=== PATIENT | female | born 1975 | race Caucasian/White ===

== ENCOUNTER 2020-04-08 16:02 | Outpatient (REF) | payer OTHER, SELFPAY ==
[2020-04-09 08:23] LABS: COVID-19 Test Negative (Negative)
== END 2020-04-08 16:03 | disposition home or self-care (01) ==
LOC: HO.LAB 16:02
PROVIDERS: PCP Internal Medicine; Visit Provider Internal Medicine
DX: Z20.828 Contact with and (suspected) exposure to other viral communicable diseases (principal)
CPT/HCPCS: 87635

== ENCOUNTER 2020-05-09 08:45 | Outpatient (REF) | payer OTHER, SELFPAY ==
[2020-05-09 09:04] LABS: COVID-19 Test Negative (Negative)
== END 2020-05-09 08:46 | disposition home or self-care (01) ==
LOC: HO.LAB 08:45
PROVIDERS: Visit Provider Internal Medicine
DX: Z20.828 Contact with and (suspected) exposure to other viral communicable diseases (principal)
CPT/HCPCS: 87635; C9803

== ENCOUNTER → 2020-05-23 10:28 | Outpatient (BNVA) | payer OTHER, SELFPAY | PROVIDERS: PCP Internal Medicine; Referring Provider Internal Medicine; Visit Provider Surgery | DX: Z76.89 Persons encountering health services in other specified circumstances (principal) ==

== ENCOUNTER → 2020-05-26 12:44 | Outpatient (BNVA) | payer OTHER, SELFPAY | PROVIDERS: PCP Internal Medicine; Referring Provider Internal Medicine; Visit Provider Internal Medicine Gastroenterology | DX: Z76.89 Persons encountering health services in other specified circumstances (principal) ==

== ENCOUNTER 2020-06-02 08:39 | Outpatient (REF) | payer OTHER, SELFPAY ==
[2020-06-02 09:37] LABS: COVID-19 Test Negative (Negative)
== END 2020-06-02 08:40 | disposition home or self-care (01) ==
LOC: HO.EMPCOV 08:39
PROVIDERS: PCP Internal Medicine; Visit Provider Internal Medicine
DX: Z20.828 Contact with and (suspected) exposure to other viral communicable diseases (principal)
CPT/HCPCS: 87635; C9803

== ENCOUNTER 2020-06-26 10:59 | Outpatient (REF) | payer OTHER, SELFPAY ==
[2020-06-26 11:27] LABS: COVID-19 Test Negative (Negative); IDNOW Serial# 55D5AD1C
== END 2020-06-26 11:00 | disposition home or self-care (01) ==
LOC: HO.LAB 10:59
PROVIDERS: Visit Provider Internal Medicine
DX: Z20.828 Contact with and (suspected) exposure to other viral communicable diseases (principal)
CPT/HCPCS: 87635; C9803

== ENCOUNTER → 2020-07-08 15:13 | Outpatient (BNVA) | payer OTHER, SELFPAY | PROVIDERS: PCP Internal Medicine; Visit Provider Surgery | DX: Z76.89 Persons encountering health services in other specified circumstances (principal) ==

== ENCOUNTER 2020-10-01 12:44 | Outpatient (REF) | payer OTHER, SELFPAY ==
[2020-10-01 13:05] LABS: COVID-19 Test Negative (Negative); IDNOW Serial# 55D5AD1C
== END 2020-10-01 12:45 | disposition home or self-care (01) ==
LOC: HO.EMPCOV 12:44
PROVIDERS: Visit Provider Internal Medicine
DX: Z20.822 Contact with and (suspected) exposure to COVID-19 (principal)
CPT/HCPCS: 36415; 87635; C9803

== ENCOUNTER 2020-10-16 07:47 | Outpatient (REF) | payer OTHER, SELFPAY ==
[2020-10-16 08:24] LABS: COVID-19 Test Negative (Negative)
== END 2020-10-16 07:48 | disposition home or self-care (01) ==
LOC: HO.EMPCOV 07:47
PROVIDERS: Visit Provider Internal Medicine
DX: Z20.822 Contact with and (suspected) exposure to COVID-19 (principal)
CPT/HCPCS: 36415; 87635; C9803

== ENCOUNTER 2020-10-21 14:35 | Outpatient (REF) | payer OTHER, SELFPAY ==
[2020-10-21 14:55] LABS: COVID-19 Test Negative (Negative)
== END 2020-10-21 14:36 | disposition home or self-care (01) ==
LOC: HO.LAB 14:35
PROVIDERS: Visit Provider Internal Medicine
DX: Z20.822 Contact with and (suspected) exposure to COVID-19 (principal)
CPT/HCPCS: 36415; 87635; C9803

== ENCOUNTER 2020-11-13 08:25 | Outpatient (REF) | payer OTHER, SELFPAY ==
[2020-11-13 08:43] LABS: COVID-19 Test Negative (Negative)
== END 2020-11-13 08:26 | disposition home or self-care (01) ==
LOC: HO.EMPCOV 08:25
PROVIDERS: Visit Provider Internal Medicine
DX: Z20.822 Contact with and (suspected) exposure to COVID-19 (principal)
CPT/HCPCS: 36415; 87635; C9803

== ENCOUNTER 2021-02-10 09:00 | Outpatient (REF) | payer OTHER, SELFPAY ==
--- NOTE | ~2021-02-10 | MM_ITS ---
EXAMINATION: MM SCREENING DIGITAL BREAST TOMOSYNTHESIS, BILATERAL CLINICAL INFORMATION: Screening. Asymptomatic. The lifetime risk of breast cancer based on the Tyrer-Cuzick Model is 7%. COMPARISON: Mammography: 02/01/2020, 01/26/2019, 11/09/2017; targeted left breast ultrasound 02/01/2020 and 07/14/2015. TECHNIQUE: Digital breast tomosynthesis is performed in both the craniocaudal and mediolateral oblique views along with computer-aided detection (CAD). Synthesized 2D images are generated from the tomosynthesis. FINDINGS: The breasts are heterogeneously dense, which may obscure small masses (ACR BI-RADS breast composition Category c). Parenchymal pattern is similar to prior studies. There is no developing density or interval mass or architectural abnormality. There is a stable smooth mass mid left 3:00 position previously confirmed as cyst. No abnormal calcifications. The axilla and skin contours are unremarkable. MM/MM tomosynthesis screening BI IMPRESSION: No mammographic evidence of malignancy. ASSESSMENT: BI-RADS 2: Benign RECOMMENDATION: Routine annual mammography screening. This patient's information was entered into a reminder system with a target due date for their next mammogram.
== END 2021-02-10 09:01 | disposition home or self-care (01) ==
LOC: HO.MAMMO 09:00
PROVIDERS: PCP Internal Medicine; Visit Provider Internal Medicine
DX: Z12.31 Encounter for screening mammogram for malignant neoplasm of breast (principal)
CPT/HCPCS: 77063; 77067

== ENCOUNTER 2021-04-07 10:53 | Outpatient (REF) | payer OTHER, SELFPAY ==
--- NOTE | ~2021-04-07 | XR_ITS ---
EXAMINATION: XR CHEST CLINICAL INFORMATION: Chest pain. COMPARISON: Chest 05/21/2016 TECHNIQUE: 2 views of the chest were obtained. FINDINGS: No significant abnormality is noted involving the heart, lungs, mediastinum, bony thorax or soft tissues. XR/XR chest 2V IMPRESSION: Unremarkable chest examination.
[2021-04-07 11:12] LABS: MANUAL DIFF FLAG NO
[2021-04-07 11:24] LABS: Basophils Percent Auto 0.8 % (0-2); Eosinophils Absolute Auto 0.5 X10*3/uL (0.0-0.4); Hematocrit 44.3 % (37-47); Hemoglobin 14.9 g/dl (12.0-16.0); Imm Gran Abs Auto 0.01 X10*3/uL (0.00-0.03); Imm Gran Pct Auto 0.2 % (0.0-0.4); Lymphocytes Absolute Auto 1.8 X10*3/uL (1.2-4.9); Lymphocytes Percent Auto 35.4 % (20-40); Mean Corpuscular HGB Conc 33.6 g/dl (31.0-35.0); Mean Corpuscular Hemoglobin 26.3 pg (27.0-33.0); Mean Corpuscular Volume 78.3 fL (80-98); Mean Platelet Volume 9.6 fL (9.4-12.3); Monocytes Absolute Auto 0.5 X10*3/uL (0.1-1.2); Monocytes Percent Auto 9.6 % (2-11); Neutrophils Absolute Auto 2.3 X10*3/uL (2.0-8.3); Platelet Count 376 X10*3/uL (160-400); Red Blood Count 5.66 X10*6/uL (4.20-5.50); Red Cell Distribution Width 13.5 % (11.0-16.0)
[2021-04-07 11:54] LABS: Cholesterol 169 mg/dL; HDL Cholesterol 27 mg/dL; LDL Cholesterol Calculated 118 mg/dl; Triglycerides 124 mg/dL
[2021-04-07 12:51] LABS: Folate 7.5 ng/mL (> or = 4.0); Vitamin B12 776 pg/mL (200-900)
[2021-04-17 14:07] LABS: Vitamin D 25-OH, D2 <4 ng/mL; Vitamin D 25-OH, D3 51 ng/mL; Vitamin D 25-OH, Total 51 ng/mL (30-100)
== END 2021-04-07 10:54 | disposition home or self-care (01) ==
LOC: HO.XRAY 10:53
PROVIDERS: PCP Internal Medicine; Visit Provider Internal Medicine
DX: R09.89 Other specified symptoms and signs involving the circulatory and respiratory systems (principal); E55.9 Vitamin D deficiency, unspecified; D64.9 Anemia, unspecified; E53.8 Deficiency of other specified B group vitamins; E78.5 Hyperlipidemia, unspecified
CPT/HCPCS: 36415; 71046; 80061; 82306; 82607; 82746; 85025

== ENCOUNTER → 2021-06-10 08:07 | Outpatient (BNVA) | payer OTHER, SELFPAY | PROVIDERS: PCP Internal Medicine; Visit Provider Advanced Practice Midwife ==

== ENCOUNTER 2021-10-05 14:16 | Outpatient (REF) | payer OTHER, SELFPAY ==
[2021-10-06 04:00] LABS: CT PCR NOT DETECTED (Not Detect.); NG PCR NOT DETECTED (Not Detect.)
== END 2021-10-05 14:17 | disposition home or self-care (01) ==
LOC: HO.LAB 14:16
PROVIDERS: PCP Internal Medicine; Visit Provider Advanced Practice Midwife
DX: Z30.430 Encounter for insertion of intrauterine contraceptive device (principal); Z20.2 Contact with and (suspected) exposure to infections with a predominantly sexual mode of transmission
CPT/HCPCS: 58300; 81025; 87491; 87591; J7298

== ENCOUNTER 2022-01-13 17:55 | Outpatient (REF) | payer OTHER, SELFPAY | END 2022-01-13 17:56 | disposition home or self-care (01) | LOC: HO.LNP 17:55 | PROVIDERS: Visit Provider Internal Medicine | DX: R30.0 Dysuria (principal) | CPT/HCPCS: 87086 ==

== ENCOUNTER 2022-03-12 11:14 | Outpatient (REF) | payer OTHER, SELFPAY ==
--- NOTE | ~2022-03-12 | MM_ITS ---
EXAMINATION: MM SCREENING DIGITAL BREAST TOMOSYNTHESIS, BILATERAL CLINICAL INFORMATION: Screening. Asymptomatic. The lifetime risk of breast cancer based on the Tyrer-Cuzick Model is 19.7%. COMPARISON: Mammography: 02/10/2021, 01/14/2020, 01/26/2019, 11/09/2017; targeted left breast ultrasound 02/01/2020, 07/14/2015 TECHNIQUE: Digital breast tomosynthesis is performed in both the craniocaudal and mediolateral oblique views along with computer-aided detection (CAD). Synthesized 2D images are generated from the tomosynthesis. FINDINGS: The breasts are heterogeneously dense, which may obscure small masses (ACR BI-RADS breast composition Category c). There is fibronodular parenchymal pattern similar to prior studies. Chronic circumscribed cyst again noted posterior 3:00 left breast. There is no interval mass or architectural abnormality or developing density. No abnormal calcifications. The axilla and skin contours are unremarkable. MM/MM tomosynthesis screening BI IMPRESSION: No mammographic evidence of malignancy. ASSESSMENT: BI-RADS 2: Benign RECOMMENDATION: Routine annual mammography screening. This patient's information was entered into a reminder system with a target due date for their next mammogram.
== END 2022-03-12 11:15 | disposition home or self-care (01) ==
LOC: HO.MAMMO 11:14
PROVIDERS: PCP Internal Medicine; Visit Provider Advanced Practice Midwife
DX: Z12.31 Encounter for screening mammogram for malignant neoplasm of breast (principal)
CPT/HCPCS: 77063; 77067

== ENCOUNTER → 2022-04-07 09:40 | Outpatient (REF) | payer OTHER, SELFPAY ==
--- NOTE | 2022-04-07 09:50 | ECG_ITS ---
Test Reason : PRE OP Blood Pressure : / mmHG Vent. Rate : 090 BPM Atrial Rate : 090 BPM P-R Int : 150 ms QRS Dur : 098 ms QT Int : 402 ms P-R-T Axes : 060 079 -11 degrees QTc Int : 491 ms Normal sinus rhythm T wave abnormality, consider inferolateral ischemia Abnormal ECG When compared with ECG of 21-MAY-2016 16:44, No significant change was found Referred By: Griffin Sawant Electronically Signed By:LIZA JOHNSON
[2022-04-07 10:32] LABS: Hematocrit 46.6 % (37.0-47.0); Hemoglobin 15.7 g/dl (12.0-16.0); Mean Corpuscular HGB Conc 33.7 g/dl (31.0-35.0); Mean Corpuscular Hemoglobin 26.7 pg (27.0-33.0); Mean Corpuscular Volume 79.4 fL (80.0-98.0); Mean Platelet Volume 10.3 fL (9.4-12.3); Platelet Count 486 X10*3/uL (160-400); Red Blood Count 5.87 X10*6/uL (4.20-5.50); Red Cell Distribution Width 13.4 % (11.0-16.0); White Blood Count 8.1 X10*3/uL (4.8-10.8)
[2022-04-07 11:14] LABS: Alanine Aminotransferase 50 U/L (0-31); Albumin Level 4.8 g/dL (3.5-5.0); Alkaline Phosphatase 91 U/L (39-117); Anion Gap 20 (12-20); Aspartate Amino Transferase 33 U/L (5-31); Bilirubin Direct 0.3 mg/dL (0.0-0.5); Blood Urea Nitrogen 17 mg/dL (9-16); Carbon Dioxide 26 mmol/L (22-29); Chloride 97 mmol/L (96-108); Estimated Glomerular Filt Rate > 60; Glucose Random 109 mg/dL (60-115); Potassium 3.9 mmol/L (3.3-5.1); Sodium 139 mmol/L (135-145); Total Protein 8.5 g/dL (6.5-8.0)
[2022-04-07 11:28] LABS: Thyroid Stimulating Hormone 1.93 uIU/mL (0.32-4.0)
[2022-04-07 11:31] LABS: Vitamin D 25-OH Total 41.9 ng/mL (>30)
[2022-04-07 11:44] LABS: Folate 15.3 ng/mL (> or = 4.0); Vitamin B12 1304 pg/mL (200-900)
[2022-04-11 16:26] LABS: Vitamin D 25-OH, D2 <4 ng/mL; Vitamin D 25-OH, D3 39 ng/mL; Vitamin D 25-OH, Total 39 ng/mL (30-100)
== END ==
LOC: HO.CARD 09:40
PROVIDERS: Absent Provider Internal Medicine; PCP Internal Medicine; Visit Provider Internal Medicine
DX: Z01.818 Encounter for other preprocedural examination (principal); I10 Essential (primary) hypertension; D51.0 Vitamin B12 deficiency anemia due to intrinsic factor deficiency; E55.9 Vitamin D deficiency, unspecified
CPT/HCPCS: 36415; 80048; 80076; 82306; 82607; 82746; 84443; 85027; 93005

== ENCOUNTER → 2022-04-20 07:25 | Outpatient (REF) | payer OTHER, SELFPAY ==
--- NOTE | 2022-04-20 07:28 | CA_ITS ---
Transthoracic Echocardiogram Patient (Last, First, Middle): Dalila Patel, Gender: Female Date of : 1975 Age: 47 Procedure Date: 04/20/2022 Procedure Type: Transthoracic Echocardiogram Location: OP Height: 154.94 cm Weight: 86.18 kg BSA: 1.85 m2 Heart Rate: bpm BP: 120 / 80 mmHg Heel Attacher: TO Referring MD: Cassius Holt MD First Crusher: Cassius Holt MD Symptoms: Z01.810 - Encounter for preprocedural cardiovascular examination Study Quality: Technically Difficult/Contrast ECG Rhythm: Sinus Conclusions: - Normal left ventricular size, thickness, systolic function, and wall motion. The visually estimated ejection fraction is between 60-65%. Diastolic function is normal for age. - Normal right ventricular cavity size and systolic function. - There is mild mitral annular calcification. Findings Procedure Information Contrast agent, definity, is being given per protocol without apparent complications. Left Ventricle Normal left ventricular size, thickness, systolic function, and wall motion. The visually estimated ejection fraction is between 60-65%. Diastolic function is normal for age. Right Ventricle Normal right ventricular cavity size and systolic function. Atria Both atria are normal in size. Aortic Valve Normal aortic valve structure and function. There is no aortic valve stenosis. There is no aortic valve regurgitation. Mitral Valve The mitral valve appears normal. There is mild mitral annular calcification. There is no mitral valve regurgitation. There is no mitral valve stenosis. Pulmonic Valve The pulmonic valve is likely normal. Tricuspid Valve Normal tricuspid valve structure and function. There is no tricuspid valve regurgitation. Normal right atrial pressure. There is no evidence of pulmonary hypertension. Great Vessels All visible segments of the aorta are normal in size. The visualized portions of the pulmonary artery and branches are normal. Venous The inferior vena cava is normal in size and collapses greater than 50% with inspiration. Pericardium/Pleural There is no evidence of pericardial effusion. Prior Study Comparison No prior study available for comparison. Measurements 2D Linear Measurements IVSd: 0.91 0.6-0.9/0.6-1.0 cm LVIDd: 4.36 3.9-5.3/4.2-5.9 cm LVIDd Index: 2.36 2.4-3.2/2.2-3.1 cm/m2 LVIDs: 2.39 2.0-3.6 cm LVPWd: 0.85 0.7-1.1 cm LA Diam: 2.80 2.7-3.8/3.0-4.0 cm LAIDs Index: 1.51 1.5-2.3 cm/m2 LV Mass: 152.54 67-162/88-224 g LV Mass Index: 82.46 43-95/49-115 g/m2 LVOT Diam: 2.00 3.0+(-)1.3 cm 2D Systolic Function EF 4C: 61.50 >55% EF 2C: 66.10 >55% EF BiP: 64.30 >55% Mitral Valve MV Pk E: 0.76 MV PK A: 0.60 MV Decel Time: 213.00 E/A: 1.30 E'Lateral: 7.83 E'Medial: 7.94 E/E' Med: 9.50 E/E' Lat: 9.70 PHT: 62.00 MVA PHT: 3.55 Decel [place]: 3.56 Aortic Valve AoV Pk Milo: 1.12 AoV Mn Milo: 0.79 AoV VTI: 0.22 AoV Pk Grad: 5.00 Aov Mn Grad: 3.00 ELAN Cont.VTI: 1.91 LVOT LVOT Pk Milo: 0.71 LVOT Mn Milo: 0.44 LVOT VTI: 0.13 LVOT Pk Grad: 2.00 LVOT Mn Grad: 1.00 LVOT Diam: 2.00 LVOT Area: 3.14 Diastolic Function MV Pk E: 0.76 MV Pk A: 0.60 E/A: 1.30 E'Medial: 7.94 E/E' Med: 9.50 E' Laterial: 7.83 E/E' Lat: 9.70 Right Ventricle TAPSE (mm): 19.10 TVS' Milo: 10.70 Tricuspid Valve TR Pk Milo: 1.38 TR Pk Grad: 8.00 RA Press: 3.00 RVSP: 11.00 Great Vessels Aorta Sinus of Valsalva: 3.03 2.0-3.5 cm Ao Asc: 2.90 2.1-3.4 cm Updated in Other Vendor System with Status of Final Cassius Holt MD electronically signed on 04/21/2022 12:25:32 PM with status of Final
== END ==
LOC: HO.CARD 07:25
PROVIDERS: PCP Internal Medicine; Visit Provider Internal Medicine Cardiovascular Disease
DX: Z01.810 Encounter for preprocedural cardiovascular examination (principal)
CPT/HCPCS: 93306; Q9957

== ENCOUNTER 2022-04-28 16:04 | Outpatient (REF) | payer OTHER, SELFPAY ==
[2022-04-28 18:07] LABS: HCG Quantitative < 2 mIU/mL
[2022-04-28 18:37] LABS: Folate 17.5 ng/mL (> or = 4.0); Vitamin B12 1034 pg/mL (200-900)
== END 2022-04-28 16:05 | disposition home or self-care (01) ==
LOC: HO.LAB 16:04
PROVIDERS: PCP Internal Medicine; Visit Provider Internal Medicine
DX: Z01.810 Encounter for preprocedural cardiovascular examination (principal); D51.0 Vitamin B12 deficiency anemia due to intrinsic factor deficiency
CPT/HCPCS: 36415; 82607; 82746; 84702; 85730

== ENCOUNTER 2022-04-30 09:44 | Outpatient (REF) | payer OTHER, SELFPAY ==
[2022-04-30 11:08] LABS: INTERNATIONAL NORM RATIO 1.1 (0.9-1.1); Prothrombin Time 12.4 SEC (10.0-13.1)
== END 2022-04-30 09:45 | disposition home or self-care (01) ==
LOC: HO.LAB 09:44
PROVIDERS: PCP Internal Medicine; Visit Provider Internal Medicine
DX: Z01.810 Encounter for preprocedural cardiovascular examination (principal)
CPT/HCPCS: 36415; 85610

== ENCOUNTER 2022-07-30 11:07 | Outpatient (REF) | payer OTHER, SELFPAY ==
--- NOTE | ~2022-07-30 | XR_ITS ---
EXAMINATION: XR ABDOMEN KUB CLINICAL INDICATION: Abdominal pain. COMPARISON: CT abdomen and pelvis dated 1124). TECHNIQUE: AP view of the abdomen. FINDINGS: The bowel gas pattern is normal, with no evidence of ileus or obstruction. No unusual soft tissue calcifications are noted. An intrauterine device and tubal ligation clips are seen. The bones are unremarkable. XR/XR KUB IMPRESSION: Unremarkable examination.
== END 2022-07-30 11:08 | disposition home or self-care (01) ==
LOC: HO.XRAY 11:07
PROVIDERS: PCP Internal Medicine; Visit Provider Nurse Practitioner Family
DX: R10.9 Unspecified abdominal pain (principal)
CPT/HCPCS: 74018

== ENCOUNTER 2022-08-02 15:36 | Outpatient (REF) | payer OTHER, SELFPAY | END 2022-08-02 15:37 | disposition home or self-care (01) | LOC: HO.LAB 15:36 | PROVIDERS: PCP Internal Medicine; Visit Provider Advanced Practice Midwife | DX: R39.15 Urgency of urination (principal); R30.0 Dysuria | CPT/HCPCS: 81003; 87086 ==

== ENCOUNTER 2022-08-20 07:59 | Outpatient (REF) | payer OTHER, SELFPAY ==
--- NOTE | ~2022-08-20 | US_ITS ---
EXAMINATION: US RETROPERITONEAL LIMITED (RENAL ONLY) CLINICAL INFORMATION: Unspecified abdominal pain. COMPARISON: X-ray abdomen KUB 07/30/2022. TECHNIQUE: Real-time imaging of the kidneys. FINDINGS: RIGHT KIDNEY: 12.0 x 5.0 x 5.3 cm (SAG x AP x TRV). The kidney is normal in size, contour, and echogenicity. Renal cortical thickness is normal. No renal mass or hydronephrosis. At the interpolar aspect, a 5 mm nonobstructing calculus is seen, with twinkle artifact. LEFT KIDNEY: 11.0 x 5.3 x 4.9 cm (SAG x AP x TRV). The kidney is normal in size, contour, and echogenicity. Renal cortical thickness is normal. No calculi or focal parenchymal lesions. No hydronephrosis. US/US renal BI IMPRESSION: A 5 mm nonobstructing right renal calculus is seen. No left renal calculus is seen. No hydronephrosis is noted bilaterally.
== END 2022-08-20 08:00 | disposition home or self-care (01) ==
LOC: HO.US 07:59
PROVIDERS: PCP Internal Medicine; Visit Provider Nurse Practitioner Family
DX: R10.9 Unspecified abdominal pain (principal)
CPT/HCPCS: 76775

== ENCOUNTER 2022-09-07 08:16 | Outpatient (REF) | payer OTHER, SELFPAY ==
[2022-09-07 15:29] LABS: CT PCR NOT DETECTED (Not Detect.); NG PCR NOT DETECTED (Not Detect.)
== END 2022-09-07 08:17 | disposition home or self-care (01) ==
LOC: HO.LNP 08:16
PROVIDERS: PCP Internal Medicine; Visit Provider Advanced Practice Midwife
DX: Z20.2 Contact with and (suspected) exposure to infections with a predominantly sexual mode of transmission (principal)
CPT/HCPCS: 0353U

== ENCOUNTER 2023-03-14 13:22 | Outpatient (AMB) | payer OTHER, SELFPAY ==
[2023-03-14 13:25] VITALS: BP 118/80; PULSE 90; RESP 16; O2SAT 98; BMI 34.8
--- NOTE | 2023-03-14 13:25 | A.OFFPC_ITS ---
Vital Signs 3 03/14/23 13:25 Height 5 ft 1 in Weight 184 lb 2 oz BMI 34.8 BP 118/80 Blood Pressure Location Lt brachial Position Sitting Respiration 16 Pulse 90 Pulse Source Pulse Oximeter Pulse Oximetry (%) 98 Oxygen Delivery Method Room Air Intake Visit Reasons: left handstring painful Intake Note: Pt is here for left sciatica pain since Tuesday. Ships Or Barges Loader Required: No Accompanied by: Self / Same As Patient Allergies metronidazole [From Metrogel] Allergy (Intermediate, Verified 03/14/23 13:38) Rash Medication List - Last Reconciled 03/14/23 by Mookie Okeefe PA-C cholecalciferol (vitamin D3) 25 mcg PO DAILY hydrochlorothiazide 25 mg PO QAM 90 days levonorgestrel (Mirena) intrauterine lorazepam 0.5 mg PO BEDTIME PRN 30 days losartan 50 mg PO BID 90 days Tobacco use date assessed: 07/15/22 Dental Screening Dental Screen Date: 03/14/23 Did you have a dental visit in the last 12 months?: Yes Did you have a dental problem in the last 6 months where you did not have access to dental care?: No Was dental information given to patient?: Patient has dentist HPI left handstring painful 2 HPI0 Details Patient is a 48-year-old female here today for problem visit. She reports having left hamstring pain over the last 3 days. She denies any trauma to her lower back. She has been using NSAIDs and Tylenol with only minimal relief. She has been doing like stretches that she has found online for possible sciatic nerve issue. She reports sitting makes pain worse, standing or lying flat makes pain better. COUNT INCLUDES THE [facility] Medical History Anxiety At high risk for breast cancer B12 deficiency Chest congestion Chronic GERD Essential hypertension Family history of breast cancer History of uterine fibroid Hypertension Hypovitaminosis D Left flank pain Pernicious anemia Urinary frequency Surgical History History of breast lift History of breast implant Hx of abdominoplasty History of mammogram History of removal of cyst History of tubal ligation Family History Mother Diabetes High blood pressure Breast cancer Cervical cancer Father Cancer Alzheimer disease Parkinsons disease Maternal Grandmother Breast cancer Social History Household Members: Family Housing: House Alcohol intake: never Patient Tobacco Use Status: Never used Tobacco e-Cigarette/Vaping Use: Never Used Second Hand Smoke Exposure: No Substance Use Type: Marijuana service: No Current occupational status: employed Current occupational exposures/hazards: No Cognitive needs: No Hearing needs: No Vision needs: No Female Reproductive History Menstrual Age of Menarche: 14 Questionnaire Thrive Questionnaire Date Thrive assessed: 07/15/22 ROSIE-7 AMB Questionnaire ROSIE-7 Date ROSIE - 7 assessed: 07/15/22 Source: Developed by Drs. Wilbert Schrader, Larissa Allen, Wing Ramírez and colleagues, with an educational ifeoma from [employer]. Review of Systems Const Denies headache(s) Eyes Denies loss of vision ENT Denies vertigo, Denies dizziness, Denies headache(s) and Denies sore throat Card Denies chest pain, Denies leg edema and Denies lightheadedness Resp Denies cough, Denies hemoptysis and Denies wheezing GI Denies abdominal pain, Denies melena, Denies constipation, Denies diarrhea and Denies vomiting Denies urinary frequency, Denies dysuria and Denies urinary urgency Musc Details: + LEFT HAMSTRING SORENESS AND PAIN. Denies arthralgias, Denies joint swelling, Reports muscle cramps, Denies numbness and Denies tingling Neuro Denies Abnormal speech present, Denies behavioral changes, Denies vertigo, Denies dizziness, Denies headache(s), Denies loss of vision, Denies memory loss, Denies numbness and Denies tingling Psych Denies anxiety, Denies behavioral changes, Denies depression, Denies memory loss and Denies panic attacks Abdifatah/Lymph Denies easy bleeding and Denies easy bruising Aller/Immun Denies wheezing Physical exam (Primary Care) Vital Signs: Last Vital Signs Pulse 90 03/14/23 13:25 Resp 16 03/14/23 13:25 BP 118/80 03/14/23 13:25 Pulse Ox 98 03/14/23 13:25 Oxygen Delivery Method Room Air 03/14/23 13:25 BMI result Body Mass Index 34.8 Tobacco/Smoking Status: Tobacco use Status Tobacco use date assessed 07/15/22 03/14/23 13:27 Patient Tobacco Use Status Never used Tobacco 03/14/23 13:27 e-Cigarette/Vaping Use Never Used 03/14/23 13:27 Thrive Assessment: Date of Thrive Assessment Date Thrive assessed 07/15/22 03/14/23 13:27 Const General: healthy appearing, no acute distress, alert and awake Nutritional Appearance: well nourished Orientation/consciousness: oriented to person, oriented to place and oriented to time HENMT Ears: TM's normal bilaterally General nose exam: Normal nasal mucous membranes and turbinates present Eyes Conjunctivae: conjunctivae normal Sclerae: sclerae normal Pupils: Equal, round and reactive pupils present Neck Neck: Yes no lymphadenopathy and Yes no JVD Thyroid: Thyroid normal Carotids: no bruits Resp Effort & Inspection: normal respiratory effort and not tachypneic Auscultation: no crackles, no rales, no rhonchi and no wheezes Cardio Rate: regular rate Rhythm: regular rhythm Heart sounds: no murmurs and normal S1 and S2 GI Palpation (GI): Soft to palpation, nontender, no hepatomegaly and no splenomegaly Auscultation: normal bowel sounds Back/Spine/Pelvis Other: PATIENT AMBULATING WITH AN ANTALGIC GAIT. SITTING IN EXAM CHAIR AND POSITION OF COMFORT, UNABLE TO POSITION TO LAY FLAT WITHOUT PAIN IN THE LEFT HAMSTRING AREA. Back/spine/pelvis image: 2 1. PAIN REPORTED IN THE AREA OUTLINED Skin General skin exam: no rashes or lesions noted and dry skin Neuro General: oriented to person, oriented to place and oriented to time Cranial nerves: Yes Equal, round and reactive pupils present Speech: No Abnormal speech present Gait exam (Neuro): Normal gait present Motor exam (neuro): no tremor noted Extrem Right upper extremity: full ROM Left upper extremity: full ROM Right lower extremity: full ROM; no edema Left lower extremity: full ROM; no edema Psych Mental Status: mental status grossly normal Speech and movement: Normal speech and movement present Affect: normal affect Attitude: cooperative Thought process: Normal thought process present Assessment and Plan Assessment & Plan (1) Left sided sciatica: Code(s): M54.32 - Sciatica, left side Plan: Patient reports a 3 day history of left-sided buttocks and hamstring pain. Denies any trauma or recent physical activity that could cause trauma to her hamstring. Most likely left-sided sciatic which will alikely benefit from physical therapy. Will supply her with prednisone taper and muscle relaxer to help her with her pain. Orders: Orders 2 XR lumbar spine 4V min 03/14/23 M54.32 - Sciatica, left side PT Evaluation and Treatment 03/14/23 M54.32 - Sciatica, left side Medications: New 2 prednisone take 3 tabs x 3 days take 2 tabs x 3days , take 1 tab x 3 days 10 mg PO DAILY 9 days 18 tabs 0RF M54.32 - Sciatica, left side cyclobenzaprine 10 mg PO BEDTIME 14 days PRN 14 tabs 0RF muscle spasm M54.32 - Sciatica, left side Coding Level of Care Code Est Pt Level 3 (43286) Diagnoses Left sided sciatica M54.32
== END 2023-03-14 13:57 | disposition home or self-care (01) ==
PROVIDERS: PCP Internal Medicine; Visit Provider Physician Assistant
DX: M54.32 Sciatica, left side (principal)
CPT/HCPCS: 99213

== ENCOUNTER 2023-03-14 14:01 | Outpatient (REF) | payer OTHER, SELFPAY ==
--- NOTE | ~2023-03-14 | XR_ITS ---
EXAMINATION: XR PELVIS CLINICAL INFORMATION: Left-sided sciatica COMPARISON: None available. TECHNIQUE: AP view of the pelvis. FINDINGS: Mild bilateral hip joint arthritis. No acute fracture or dislocation. Alignment is anatomic. Sacroiliac joints and pubic symphysis are normal. IUD projected over the pelvis. No abnormal soft tissue calcifications. XR/XR pelvis 1-2V IMPRESSION: Mild bilateral hip joint arthritis.
--- NOTE | ~2023-03-14 | XR_ITS ---
EXAMINATION: XR LUMBOSACRAL SPINE WITH OBLIQUES CLINICAL INFORMATION: Low back pain, left-sided sciatica COMPARISON: None available. TECHNIQUE: 5 views lumbar spine FINDINGS: Sagittal alignment is anatomic. Vertebral body heights are maintained. No evidence of acute compression deformities. Mild disc degenerative changes in the visualized lower thoracic and upper lumbar spine. Facet degeneration in the lower lumbar spine. IUD projected over the pelvis. SI joints are intact. No suspicious soft tissue calcification. XR/XR lumbar spine 4V min IMPRESSION: Mild spondylosis in the visualized spine, detailed above. No acute findings seen.
== END 2023-03-14 14:02 | disposition home or self-care (01) ==
LOC: HO.XRAY 14:01
PROVIDERS: PCP Internal Medicine; Visit Provider Physician Assistant
DX: M54.32 Sciatica, left side (principal); M16.0 Bilateral primary osteoarthritis of hip
CPT/HCPCS: 72110; 72170

== ENCOUNTER 2023-05-13 10:47 | Outpatient (REF) | payer OTHER, SELFPAY ==
--- NOTE | ~2023-05-13 | MM_ITS ---
EXAMINATION: MM SCREENING DIGITAL BREAST TOMOSYNTHESIS, BILATERAL CLINICAL INFORMATION: Screening. Asymptomatic. Bilateral breast implants new from prior study. COMPARISON: Mammography: 03/12/2022, 04/12/2021, 02/01/2020, 01/26/2019, and dating back to 2017. TECHNIQUE: Digital mammography is performed in craniocaudal and mediolateral oblique views along with computer-aided detection (CAD). Digital breast tomosynthesis is performed in implant-displaced craniocaudal and implant-displaced mediolateral oblique views along with computer-aided detection (CAD). Synthesized 2D images are generated from the tomosynthesis. FINDINGS: The breasts are heterogeneously dense, which may obscure small masses (ACR BI-RADS breast composition Category c). There is a stable oval mass in the posterior lateral left breast consistent with a known complex cyst. There are bilateral implants with no obvious complication. There are no suspicious masses, suspicious grouped calcifications, or areas of architectural distortion in either breast. The parenchymal pattern is stable from prior exams. MM/MM tomosynthesis screen imp BI IMPRESSION: There are no findings suspicious for malignancy in either breast. Stable benign findings. No implant complication. ASSESSMENT: BI-RADS BI-RADS 2 - Benign Findings RECOMMENDATION: Routine annual mammography screening. 1 year F/U This patient's information was entered into a reminder system with a target due date for their next mammogram.
== END 2023-05-13 10:48 | disposition home or self-care (01) ==
LOC: HO.MAMMO 10:47
PROVIDERS: PCP Internal Medicine; Visit Provider Internal Medicine
DX: Z12.31 Encounter for screening mammogram for malignant neoplasm of breast (principal)
CPT/HCPCS: 77063; 77067

== ENCOUNTER → 2023-05-13 10:50 | Outpatient (BNV) | payer OTHER, SELFPAY | PROVIDERS: PCP Internal Medicine; Visit Provider Radiology Diagnostic Radiology | DX: Z12.31 Encounter for screening mammogram for malignant neoplasm of breast (principal) | CPT/HCPCS: 77063; 77067 ==

== ENCOUNTER 2023-09-14 07:52 | Outpatient (REF) | payer OTHER, SELFPAY ==
[2023-09-16 17:13] LABS: HPV mRNA E6/E7 rflx Not Detected (Not Detected)
== END 2023-09-14 07:53 | disposition home or self-care (01) ==
LOC: HO.LNP 07:52
PROVIDERS: Visit Provider Advanced Practice Midwife
DX: Z01.419 Encounter for gynecological examination (general) (routine) without abnormal findings (principal); Z11.51 Encounter for screening for human papillomavirus (HPV); D21.9 Benign neoplasm of connective and other soft tissue, unspecified
CPT/HCPCS: 87624; 88142

== ENCOUNTER 2023-09-14 07:52 | Outpatient (AMB) | payer OTHER, SELFPAY ==
--- NOTE | 2023-09-14 07:55 | MHC.OFFVIS ---
Intake Vital Signs 09/14/23 07:57 Height 5 ft 1 in Weight 188 lb BMI 35.5 BP 118/80 Intake Visit Reasons: Annual Instructional Assistant: Instructional Assistant Present (Rosy) Allergies metronidazole [From Metrogel] Allergy (Intermediate, Verified 09/14/23 07:57) Rash HPI HPI Comments History of Present Illness Details She is a premenopausal woman presenting for annual examination. Doing well with no concerns. She tries to eat healthy, admits to having a sweet tooth, and stays active with walking at work. Currently is sexually active. The irregular bleeding with the Mirena IUD, used for AUB. She denies vaginal itching and irritation. STI screening offered; she declines. Denies family history of ovarian or colon cancer. Family history of breast cancer-mother. Last pap smear 2019, ASCUS. Mammogram: UTD. BRCA negative. [facility] Medical History (Updated 09/14/23 @ 08:31 by Leigh Ann Guerrero [facility]) BRCA negative Left flank pain Urinary frequency History of uterine fibroid Chest congestion Essential hypertension Pernicious anemia B12 deficiency Hypovitaminosis D At high risk for breast cancer Anxiety Chronic GERD Family history of breast cancer Hypertension Surgical History History of breast lift History of breast implant Hx of abdominoplasty History of mammogram History of removal of cyst History of tubal ligation Family History Mother Diabetes High blood pressure Breast cancer Cervical cancer Father Cancer Alzheimer disease Parkinsons disease Maternal Grandmother Breast cancer Social History Household Members: Family Housing: House Alcohol intake: never Patient Tobacco Use Status: Never used Tobacco e-Cigarette/Vaping Use: Never Used Second Hand Smoke Exposure: No Substance Use Type: Marijuana service: No Current occupational status: employed Current occupational exposures/hazards: No Cognitive needs: No Hearing needs: No Vision needs: No Female Reproductive History Menstrual Age of Menarche: 14 control method: progestin IUCD (Mirena 10/2021) and permanent sterilization Permanent Sterilization: BTL Total pregnancies: 2 Full term: 2 Number of Living Children: 2 Date of last pap smear: 02/27/20 (ascus) History of abnormal pap smear: Yes (06/17 ascus 02/20 ascus) Date of Mammogram: 05/13/23 (birad 2) Review of Systems Const All systems reviewed & are unremarkable except as noted in HPI and below Reports as per HPI Eyes Reports no additional complaints ENT Reports no additional complaints Card Reports no additional complaints Resp Reports no additional complaints GI Reports as per HPI and Reports no additional complaints Reports as per HPI Musc Reports no additional complaints Skin/Breast Reports as per HPI Neuro Reports no additional complaints Psych Reports no additional complaints Endo Reports no additional complaints Abdifatah/Lymph Reports no additional complaints Aller/Immun Reports no additional complaints Physical Exam Vital Signs: Last Vital Signs BP 118/80 09/14/23 07:57 BMI result Body Mass Index 35.5 Const General: cooperative, healthy appearing, no acute distress, well developed and alert Orientation/consciousness: patient oriented x3 HEENT Head: Yes normal to inspection Eyes General: appearance normal, both eyes and all related structures Neck Neck: Yes normal visual inspection Thyroid: Thyroid normal Chest Other: Bilateral breast reconstruction surgery Chest palpation & inspection: normal inspection of the chest and other (no puckering, dimpling, peau de orange, retraction, discharge, masses) Breast/axilla inspection: normal inspection of the breasts Breast/axilla palpation: normal palpation of the breasts Resp Effort & Inspection: normal respiratory effort GI Inspection: Yes normal to inspection and Yes scar Palpation (GI): Soft to palpation Rectal Exam - Female: deferred General: Yes bladder normal to palpation External Female Exam: normal external appearance and normal appearance of the urethra Speculum Exam - Vagina: normal appearance of the vagina, normal palpation and normal vaginal discharge Speculum Exam - Cervix: normal appearance of the cervix, normal palpation and Other cervical findings present (IUD strings present) Bimanual exam- vagina & uterus: normal bimanual exam, normal palpation, uterine size normal, bladder normal to palpation, normal palpation and non-tender Bimanual Exam- Adnexa, other: no masses Skin General skin exam: no rashes or lesions noted Rashes: no rashes Neuro General: patient oriented x3 Cognition (Neuro): normal cognition Extrem General: Yes normal to inspection Psych Attitude: cooperative Thought process: Normal thought process present Assessment & Plan Assessment & Plan (1) Encounter for well woman exam with routine gynecological exam: Code(s): Z01.419 - Encounter for gynecological examination (general) (routine) without abnormal findings (2) Fibroid: Code(s): D21.9 - Benign neoplasm of connective and other soft tissue, unspecified Plan Discussed: Current recommendations for pap smears per ASCCP guidelines. Breast awareness and periodic breast exams. Maintain a healthy lifestyle including a well balanced diet and routine exercise. Mammogram yearly. Patient verbalizes understanding and agrees to the plan of care. She was given opportunity to ask questions and all questions were answered to the best of my ability. 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 This note is constructed using voice recognition software. While every effort has been made to ensure accuracy, trim attacher errors may have been included. Orders: Orders US pelvic and transvaginal Today D21.9 - Benign neoplasm of connective and other soft tissue, unspecified Pap Smear Today Z01.419 - Encounter for gynecological examination (general) (routine) without abnormal findings Coding Level of Care Code Est Pt Prev Care 40-64y(68565) Diagnoses Encounter for well woman exam with routine gynecological exam Z01.419 Fibroid D21.9
[2023-09-14 07:57] VITALS: BP 118/80; BMI 35.5
== END 2023-09-14 08:52 | disposition home or self-care (01) ==
PROVIDERS: Visit Provider Advanced Practice Midwife
DX: Z01.419 Encounter for gynecological examination (general) (routine) without abnormal findings (principal); D21.9 Benign neoplasm of connective and other soft tissue, unspecified
CPT/HCPCS: 99396

== ENCOUNTER 2023-09-15 07:13 | Outpatient (AMB) | payer OTHER, SELFPAY ==
--- NOTE | 2023-09-15 07:36 | A.OFFPC_ITS ---
Vital Signs 09/15/23 07:37 Height 5 ft 1 in Weight 190 lb BMI 35.9 BP 128/86 Blood Pressure Location Lt brachial Position Sitting Intake Visit Reasons: Annual Exam Intake Note: Patient here for an annual physical exam Professional Healthcare Representative Required: No Accompanied by: Self / Same As Patient Allergies metronidazole [From Metrogel] Allergy (Intermediate, Verified 09/15/23 07:49) Rash Medication List - Last Reconciled 09/15/23 by Christal Jimenez MD cholecalciferol (vitamin D3) 25 mcg PO DAILY hydrochlorothiazide 25 mg PO QAM 90 days levonorgestrel (Mirena) intrauterine lorazepam 0.5 mg PO BEDTIME PRN 30 days losartan 50 mg PO BID 90 days Tobacco use date assessed: 09/15/23 Dental Screening Dental Screen Date: 09/15/23 Did you have a dental visit in the last 12 months?: Yes Did you have a dental problem in the last 6 months where you did not have access to dental care?: No Was dental information given to patient?: Patient has dentist HPI HPI Comments History of Present Illness Details This is a 48-year-old female that comes for her physical exam. Has never had a colonoscopy and has no family history of colon cancer. Will have a Cologuard. No chest pain or shortness of breath. Last mammogram was May 2023. Last Pap smear was yesterday and results are still pending. [facility] Medical History BRCA negative Left flank pain Urinary frequency History of uterine fibroid Chest congestion Essential hypertension Pernicious anemia B12 deficiency Hypovitaminosis D At high risk for breast cancer Anxiety Chronic GERD Family history of breast cancer Hypertension Surgical History History of breast lift History of breast implant Hx of abdominoplasty History of mammogram History of removal of cyst History of tubal ligation Family History Mother Diabetes High blood pressure Breast cancer Cervical cancer Father Cancer Alzheimer disease Parkinsons disease Maternal Grandmother Breast cancer Social History Household Members: Family Housing: House Alcohol intake: never Patient Tobacco Use Status: Never used Tobacco e-Cigarette/Vaping Use: Never Used Second Hand Smoke Exposure: No Substance Use Type: Marijuana service: No Current occupational status: employed Current occupational exposures/hazards: No Cognitive needs: No Hearing needs: No Vision needs: No Female Reproductive History Menstrual Age of Menarche: 14 Questionnaire PHQ-9 Over the last 2 weeks, how often have you been bothered by any of the following problems? 1. Little interest or pleasure in doing things: not at all 2. Feeling down, depressed, or hopeless: not at all 3. Trouble falling or staying asleep, or sleeping too much: not at all 4. Feeling tired or having little energy: not at all 5. Poor appetite or overeating: not at all 6. Feeling bad about yourself - or that you are a failure or have let yourself or your family down: not at all 7. Trouble concentrating on things, such as reading the newspaper or watching television: not at all 8. Moving or speaking so slowly that other people could have noticed. Or the opposite - being so fidgety or restless that you have been moving around a lot more than usual: not at all 9. Thoughts that you would be better off or of hurting yourself in some way: not at all Total score: 0 Depression Screening Interpretation: Negative Depression Screening Done: Yes 66544 - PHQ-9 Billing: Yes Source: Developed by Drs. Wilbert Schrader, Larissa Allen, Wing Ramírez and colleagues, with an educational ifeoma from [employer]. Thrive Questionnaire Date Thrive assessed: 09/15/23 I am a: Patient What is your living situation today?: I have a steady place to live Within the past 12 months, did the food you bought not last and you didn't have the money to get more?: Never true Within the past 12 months, did you worry whether your food would run out before you got money to buy more?: Never true Do you have trouble paying for medicines?: No Do you have trouble getting transportation to medical appointments?: No Do you have trouble paying your heating and electricity bill?: No Do you have trouble taking care of your child, family member or friend?: No Do you have trouble with day-to-day activities such as bathing, preparing meals, shopping, managing finances, etc.?: No Are you currently unemployed and looking for a job?: No Are you interested in more education?: No Please select the resources that you would like help with: None Currently or been in a relationship where the following occur: no concerns reported THRIVE Score: 0 AUDIT C Alcohol Use Questionnaire (AUDIT-C) 1. How often do you have a drink containing alcohol?: Never Total Score: 0 ROSIE-7 AMB Questionnaire ROSIE-7 Date ROSIE - 7 assessed: 09/15/23 Feeling nervous, anxious, or on edge: 0 = Not at all Not being able to stop or control worryin = Not at all Worrying too much about different things: 0 = Not at all Trouble relaxin = Not at all Being so restless that it is hard to sit still: 0 = Not at all Becoming easily annoyed or irritable: 0 = Not at all Feeling afraid as if something awful might happen: 0 = Not at all Total ROSIE-7 score (0-4 normal; 5-9 mild; 10-14 moderate; 15-21 severe): 0 Source: Developed by Drs. Wilbert Schrader, Larissa Allen, Wing Ramírez and colleagues, with an educational ifeoma from [employer]. ROSIE-7 Assessment Billing ROSIE-7 Assessment Tool: ROSIE-7 Assessment 67437 Review of Systems Const All systems reviewed & are unremarkable except as noted in HPI and below Eyes Reports no additional complaints, Denies change in vision and Denies other visual disturbances Card Denies chest pain at rest, Denies chest pain with activity, Denies edema, Denies irregular heart rhythm, Denies claudication, Denies dyspnea, Denies dyspnea on exertion, Denies orthopnea, Denies paroxysmal nocturnal dyspnea and Denies slow heart rate Resp Denies cough, Denies dyspnea and Denies dyspnea on exertion GI Denies abdominal pain, Denies change in bowel habits, Denies excessive flatus, Denies nausea and Denies vomiting Denies urinary incontinence, Denies urinary hesitancy and Denies urinary urgency Musc Denies abnormal gait, Denies atrophy, Denies deformity and Denies limited range of motion Skin/Breast Denies bleeding lesions, Denies changing lesions and Denies rash Neuro Denies abnormal gait, Denies behavioral changes, Denies confusion and Denies lack of coordination Psych Denies behavioral changes and Denies confusion Physical exam (Primary Care) Vital Signs: Last Vital Signs BP 128/86 09/15/23 07:37 BMI result Body Mass Index 35.9 Tobacco/Smoking Status: Tobacco use Status Tobacco use date assessed 09/15/23 09/15/23 07:42 Patient Tobacco Use Status Never used Tobacco 09/15/23 07:42 e-Cigarette/Vaping Use Never Used 09/15/23 07:42 PHQ-9: PHQ-9 Score PHQ-9: Total score 0 09/15/23 07:42 Depression Screening Interpretation: Negative Thrive Assessment: Date of Thrive Assessment Date Thrive assessed 09/15/23 09/15/23 07:42 Currently or been in a relationship where the following occur: no concerns reported Const General: No confusion Orientation/consciousness: patient oriented x3 and No confusion HENMT Head: Yes normal to inspection, Yes normocephalic and Yes atraumatic Ears: external ears normal General nose exam: No nasal discharge present Eyes General: appearance normal, both eyes and all related structures Eyelids: Yes eyelids normal Conjunctivae: conjunctivae normal Neck Neck: Yes normal visual inspection and Yes supple Resp Effort & Inspection: normal respiratory effort Auscultation: clear to auscultation bilaterally Cardio Jugular venous distension: no JVD Rate: regular rate Rhythm: regular rhythm Heart sounds: S1 normal heart sound present and S2 normal heart sound present GI Inspection: Yes normal to inspection Palpation (GI): Soft to palpation and nontender Auscultation: normal bowel sounds Skin General skin exam: no rashes or lesions noted Neuro General: patient oriented x3, no focal motor deficits and No confusion Extrem General: Yes full ROM Psych Appearance: grossly normal Assessment and Plan Assessment & Plan (1) Physical exam: Code(s): Z00.00 - Encounter for general adult medical examination without abnormal findings Plan: Repeat in a year. Orders: Orders Vitamin D 25-OH Total Today E55.9 - Vitamin D deficiency, unspecified Lipid Panel Today Z00.00 - Encounter for general adult medical examination without abnormal findings Comprehensive Vincent. Panel Fast Today Z00.00 - Encounter for general adult medical examination without abnormal findings Coding Level of Care Code Est Pt Prev Care 40-64y(37380) Diagnoses Physical exam Z00.00 Additional Codes ROSIE-7 Assessment Billing - ROSIE-7 Assessment Tool: ROSIE-7 Assessment 41862 ([id number]) Time Spent (min) 31
[2023-09-15 07:37] VITALS: BP 128/86; BMI 35.9
== END 2023-09-15 07:59 | disposition home or self-care (01) ==
PROVIDERS: Visit Provider Internal Medicine
DX: Z00.00 Encounter for general adult medical examination without abnormal findings (principal)
CPT/HCPCS: 99396

== ENCOUNTER 2023-09-28 11:03 | Outpatient (REF) | payer OTHER, SELFPAY ==
--- NOTE | ~2023-09-28 | US_ITS ---
EXAMINATION: US PELVIS CLINICAL INFORMATION: Abnormal bleeding with Mirena IUD, unknown LMP. COMPARISON: Pelvic ultrasound of 03/20/2020. TECHNIQUE: Ultrasound of the pelvis is performed using both transabdominal and transvaginal transducers along with Doppler. Transvaginal imaging is performed due to inadequate visualization transabdominally. Limited visualization due to bowel gas. FINDINGS: The uterus measures 11.1 x 4.9 x 7.1 cm. 1.3 x 1.2 x 1.2 cm fibroid. Previous exam demonstrated a 2.7 x 2.3 x 2.7 cm fibroid in this region. 0.6 x 0.4 x 0.7 cm fibroid. Previous exam demonstrated a 1.2 x 0.6 x 1.0 cm fibroid. IUD present in the endometrial cavity and shadowing from IUD limited visualization of the endometrium. Fundal aspect of the IUD is approximately 6 mm from the fundal aspect of the endometrium. Imaged portion of endometrium with thickness of 3 mm. Uterus is retropositioned, limiting evaluation. There is no significant free fluid. Right ovary measures 3.9 x 1.7 x 1.9 cm, volume 6.3 mL. Right ovarian 1.9 cm cyst is simple, likely physiologic. There is no specific indication for additional imaging at this time. Left ovary measures 3.2 x 2.3 x 2.6 cm, volume 10 mL. 2.3 x 2.4 x 2.1 cm left ovarian cyst is likely physiologic, although visualization is limited due to bowel gas. There is no specific indication for additional imaging at this time. US/US pelvic and transvaginal IMPRESSION: 1. IUD present in the endometrial cavity and shadowing from IUD limited visualization of the endometrium. Fundal aspect of the IUD is approximately 6 mm from the fundal aspect of the endometrium. Imaged portion of endometrium with thickness of 3 mm. 2. Uterine fibroids, largest 1.3 cm. 3. Bilateral ovarian cysts are likely physiologic, although visualization is limited due to bowel gas. There is no specific indication for additional imaging at this time.
== END 2023-09-28 11:04 | disposition home or self-care (01) ==
LOC: HO.US 11:03
PROVIDERS: PCP Internal Medicine; Visit Provider Advanced Practice Midwife
DX: D21.9 Benign neoplasm of connective and other soft tissue, unspecified (principal)
CPT/HCPCS: 76830; 76856

== ENCOUNTER 2023-10-06 08:24 | Outpatient (REF) | payer OTHER, SELFPAY ==
[2023-10-06 09:17] LABS: Alanine Aminotransferase 39 U/L (0-31); Albumin Level 4.3 g/dL (3.5-5.0); Alkaline Phosphatase 71 U/L (39-117); Anion Gap 15 (12-20); Aspartate Amino Transferase 22 U/L (5-31); Bilirubin Total 0.6 mg/dL (0.0-1.0); Blood Urea Nitrogen 18 mg/dL (9-16); Calcium 9.3 mg/dL (8.4-10.2); Carbon Dioxide 26 mmol/L (22-29); Chloride 101 mmol/L (96-108); Cholesterol 177 mg/dL (<200); Estimated Glomerular Filt Rate > 60; Glucose Fasting 113 mg/dL (60-99); HDL Cholesterol 35 mg/dL (>40); LDL Cholesterol Calculated 125 mg/dL (<100); Potassium 3.4 mmol/L (3.3-5.1); Sodium 139 mmol/L (135-145); Triglycerides 88 mg/dL (<150)
[2023-10-06 09:33] LABS: Vitamin D 25-OH Total 42.1 ng/mL (>30)
== END 2023-10-06 08:25 | disposition home or self-care (01) ==
LOC: HO.LAB 08:24
PROVIDERS: PCP Internal Medicine; Visit Provider Internal Medicine
DX: Z00.00 Encounter for general adult medical examination without abnormal findings (principal); Z13.6 Encounter for screening for cardiovascular disorders; E55.9 Vitamin D deficiency, unspecified
CPT/HCPCS: 36415; 80053; 80061; 82306

== ENCOUNTER 2023-10-13 08:08 | Outpatient (AMB) | payer OTHER, SELFPAY ==
[2023-10-13 08:11] VITALS: BP 112/76; BMI 35.9
--- NOTE | 2023-10-13 08:11 | MHC.OFFVIS ---
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 History of fibroids and AUB. Mirena IUD in place currently and reports no bleeding issues at all or any other concerns today. [facility], [facility] Medical History BRCA negative Left flank pain Urinary frequency History of uterine fibroid Chest congestion Essential hypertension Pernicious anemia B12 deficiency Hypovitaminosis D At high risk for breast cancer Anxiety Chronic GERD Family history of breast cancer Hypertension Surgical History History of breast lift History of breast implant Hx of abdominoplasty History of mammogram History of removal of cyst History of tubal ligation Family History Mother Diabetes High blood pressure Breast cancer Cervical cancer Father Cancer Alzheimer disease Parkinsons disease Maternal Grandmother Breast cancer Social History Household Members: Family Housing: House Alcohol intake: never Patient Tobacco Use Status: Never used Tobacco e-Cigarette/Vaping Use: Never Used Second Hand Smoke Exposure: No Substance Use Type: Marijuana service: No Current occupational status: employed Current occupational exposures/hazards: No Cognitive needs: No Hearing needs: No Vision needs: No Female Reproductive History Menstrual Age of Menarche: 14 Review of Systems Const All systems reviewed & are unremarkable except as noted in HPI and below Endo Reports no additional complaints Physical Exam Vital Signs: Last Vital Signs BP 112/76 10/13/23 08:11 BMI result Body Mass Index 35.9 Const General: cooperative, healthy appearing and no acute distress Psych Appearance: well kempt Attitude: cooperative Thought process: Normal thought process present Results Reviewed Results Reviewed: [address] [address] Ultrasound Report Signed Patient: Dalila Patel MR#: [id number] : 1975 Acct:[id number] Age/Sex: 48 / F ADM Date: 09/28/23 Loc: HO.US Attending Dr: Neha White CNM Ordering Physician: Neha White CNM Date of Service: 09/28/23 Procedure(s): US pelvic and transvaginal Accession Number(s): [id number] cc: Neha White CNM; Christal Umaña MD~ EXAMINATION: US PELVIS CLINICAL INFORMATION: Abnormal bleeding with Mirena IUD, unknown LMP. COMPARISON: Pelvic ultrasound of 03/20/2020. TECHNIQUE: Ultrasound of the pelvis is performed using both transabdominal and transvaginal transducers along with Doppler. Transvaginal imaging is performed due to inadequate visualization transabdominally. Limited visualization due to bowel gas. FINDINGS: The uterus measures 11.1 x 4.9 x 7.1 cm. 1.3 x 1.2 x 1.2 cm fibroid. Previous exam demonstrated a 2.7 x 2.3 x 2.7 cm fibroid in this region. 0.6 x 0.4 x 0.7 cm fibroid. Previous exam demonstrated a 1.2 x 0.6 x 1.0 cm fibroid. IUD present in the endometrial cavity and shadowing from IUD limited visualization of the endometrium. Fundal aspect of the IUD is approximately 6 mm from the fundal aspect of the endometrium. Imaged portion of endometrium with thickness of 3 mm. Uterus is retropositioned, limiting evaluation. There is no significant free fluid. Right ovary measures 3.9 x 1.7 x 1.9 cm, volume 6.3 mL. Right ovarian 1.9 cm cyst is simple, likely physiologic. There is no specific indication for additional imaging at this time. Left ovary measures 3.2 x 2.3 x 2.6 cm, volume 10 mL. 2.3 x 2.4 x 2.1 cm left ovarian cyst is likely physiologic, although visualization is limited due to bowel gas. There is no specific indication for additional imaging at this time. US/US pelvic and transvaginal IMPRESSION: 1. IUD present in the endometrial cavity and shadowing from IUD limited visualization of the endometrium. Fundal aspect of the IUD is approximately 6 mm from the fundal aspect of the endometrium. Imaged portion of endometrium with thickness of 3 mm. 2. Uterine fibroids, largest 1.3 cm. 3. Bilateral ovarian cysts are likely physiologic, although visualization is limited due to bowel gas. There is no specific indication for additional imaging at this time. Dictated By: Judy Jordan MD Signed By: <Electronically signed by Judy Jordan MD in OV> 10/03/23 1232 DD/ 1127 TD/TT: Riveter: Assessment & Plan Assessment & Plan (1) Encounter to discuss test results: Code(s): Z71.2 - Person consulting for explanation of examination or test findings (2) Uterine fibroid: Code(s): D25.9 - Leiomyoma of uterus, unspecified Qualifiers: Uterine leiomyoma location: unspecified location Qualified Code(s): D25.9 - Leiomyoma of uterus, unspecified Plan Discussed: Ultrasound findings of uterine fibroid-decreased in size, stable. Plan yearly check for stability unless any other concerns to call for any abnormal uterine bleeding episodes, pelvic pain, or any bloating, pressure. All of her questions and concerns were addressed to the best of my ability and shared decision making. She is agreeable to the plan of care. This note is constructed using voice recognition software. While every effort has been made to ensure accuracy, environmental program manager errors may have been included. Orders: Orders US pelvic and transvaginal 08/27/24 D21.9 - Benign neoplasm of connective and other soft tissue, unspecified Coding Level of Care Code Est Pt Level 3 (78784) Diagnoses Encounter to discuss test results Z71.2 Uterine leiomyoma, unspecified location D25.9 Uterine leiomyoma location: unspecified location
== END 2023-10-13 08:49 | disposition home or self-care (01) ==
LOC: HO.HWSW 08:08
PROVIDERS: PCP Internal Medicine; Visit Provider Advanced Practice Midwife
DX: Z71.2 Person consulting for explanation of examination or test findings (principal); D25.9 Leiomyoma of uterus, unspecified
CPT/HCPCS: 99213

== ENCOUNTER → 2023-10-13 08:08 | Outpatient (BNVA) | payer OTHER, SELFPAY | PROVIDERS: PCP Internal Medicine; Visit Provider Advanced Practice Midwife ==

== ENCOUNTER 2024-02-15 13:09 | Outpatient (AMB) | payer OTHER, SELFPAY ==
--- NOTE | 2024-02-15 13:19 | A.OFFVIS_ITS ---
Vital Signs 3 02/15/24 13:26 Height 5 ft 1 in Weight 178 lb 2.136 oz BMI 33.7 BP 133/90 H Blood Pressure Location Lt brachial Position Sitting Pulse 92 Intake Visit Reasons: Irritable bowel syndrome (Dr. Mcgovern 2019) Intake Note: Patient c/o: episodes of where she feels like she has to go to the bathroom not constipation, not hard stool, hands cramp up and is unable to open them. Dizziness, nausea, unable to have a conversation. Episodes last for 15-20 minutes. Cold water, ice packs help. Episodes are very scary. Episodes are happening more often this yr. Hat Checker Required: No Hat Checker Services: Hat Checker Present Accompanied by: Self / Same As Patient Allergies metronidazole [From Metrogel] Allergy (Intermediate, Verified 02/15/24 13:30) Rash HPI HPI Irritable bowel syndrome (Dr. Mcgovern 2019): Details: 48-year-old female here for initial evaluation of ?IBS.? She is referred by Christal Umaña. Of [facility] primary care. 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 She will also have severe abdominal cramping. This will not resolve until she has emptied out completely. Her fiance has also witnessed these attacks and the fact that she is not responsive during them. Fortunately she has not fallen or injured herself. Past had diarrheal accidents r/t severe anxiety. Was helped with bentyl, will restart every qhs and prn. Colonoscopy due and although I do not expect that this will contribute significantly to her diagnosis and treatment it is important for colon cancer screening. She denies any cardiac or respiratory problems. There are no prior problems with anesthesia or sedation. There are no infectious disease problems. No FHX of CRC or polyps. ROV 6 weeks. [facility] Medical History (Updated 02/15/24 @ 14:07 by NAVEEN Akers) Left sided sciatica Kidney stone Left flank pain Urinary frequency Weight loss Abnormal surgical wound Dysuria IUD surveillance Right tennis elbow History of uterine fibroid Chest congestion Pernicious anemia At high risk for breast cancer Family history of breast cancer Encounter for pre-operative cardiovascular clearance Preop cardiovascular exam Preoperative clearance Physical exam Physical exam BRCA negative Essential hypertension B12 deficiency Hypovitaminosis D Anxiety Chronic GERD Hypertension Surgical History History of breast lift History of breast implant Hx of abdominoplasty History of mammogram History of removal of cyst History of tubal ligation Family History Mother Diabetes High blood pressure Breast cancer Cervical cancer Father Cancer Alzheimer disease Parkinsons disease Maternal Grandmother Breast cancer Social History Household Members: Family Housing: House Alcohol intake: never Patient Tobacco Use Status: Never used Tobacco e-Cigarette/Vaping Use: Never Used Second Hand Smoke Exposure: No Substance Use Type: Marijuana service: No Current occupational status: employed Current occupational exposures/hazards: No Cognitive needs: No Hearing needs: No Vision needs: No Female Reproductive History Menstrual Age of Menarche: 14 Review of Systems Const Reports excessive sweating, Denies fatigue, Denies fever(s), Denies night sweats, Denies poor appetite and Denies weight loss ENT Reports Normal hearing present, Denies dental pain, Denies dysphagia, Reports dizziness, Denies hearing loss, Denies mouth pain, Denies odynophagia, Denies throat swelling, Denies tongue swelling and Reports other (Dentition adequate) Card Reports syncope Resp Reports no additional complaints GI Details: Reports abdominal pain, Denies melena, Denies bloating, Denies hematochezia, Denies constipation, Reports GI cramping, Denies dysphagia, Denies excessive flatus, Denies early satiety, Denies heartburn, Reports diarrhea, Denies nausea, Denies odynophagia, Denies vomiting and Denies hematemesis Musc Reports numbness Skin/Breast Denies pruritus, Denies lesions, Denies rash and Denies jaundice Neuro Reports Normal hearing present, Denies Abnormal speech present, Reports dizziness, Reports syncope, Reports numbness and Reports paresthesias Psych Reports anxiety Endo Reports excessive sweating and Denies fatigue Aller/Immun Denies throat swelling and Denies tongue swelling Physical Exam Vital Signs: Last Vital Signs Pulse 92 02/15/24 13:26 BP 133/90 H 02/15/24 13:26 BMI result Body Mass Index 33.7 Const General: cooperative, no acute distress, well developed and well groomed Nutritional Appearance: well nourished and overweight Orientation/consciousness: oriented to person, oriented to place and oriented to time Limitations: No language barrier HEENT Head: Yes normocephalic and Yes atraumatic Eyes General: appearance normal, both eyes and all related structures Pupils: Equal, round and reactive pupils present Neck Neck: Yes normal visual inspection and Yes no lymphadenopathy Thyroid: Thyroid normal Resp Effort & Inspection: normal respiratory effort and able to speak in complete sentences Auscultation: clear to auscultation bilaterally Cardio Rate: regular rate Rhythm: regular rhythm Heart sounds: Normal, physiologic split S2 sound present Peripheral pulses: radial pulses present and posterior tibial pulses present GI Inspection: No distended, No Abdominal panniculus present and Yes obesity Palpation (GI): Soft to palpation, nontender, no guarding, not rigid and No hepatosplenomegaly present Percussion: Yes normal to percussion Auscultation: normal bowel sounds Rectal Exam - Female: deferred Abdomen image: 2 1. Abdominoplasty scars 2. Skin General skin exam: no rashes or lesions noted, turgor normal, skin not dry, no jaundice, No spider nevi and no striae Rashes: no rashes Nails: normal Neuro General: oriented to person, oriented to place and oriented to time Cranial nerves: Yes Equal, round and reactive pupils present and Yes Normal hearing present Speech: No Abnormal speech present Extrem General: Yes normal to inspection, No clubbing, No cyanosis and No edema Psych Appearance: grossly normal and well kempt Mental Status: mental status grossly normal Speech and movement: Normal speech and movement present Affect: normal affect Attitude: cooperative Thought process: Normal thought process present and not confabulating Thought content: Normal thought content present Insight: Fair insight present (Psych) Judgement: Fair judgement present (Psych) Assessment & Plan Assessment & Plan (1) IBS (irritable colon syndrome): Comment: with urgency Code(s): K58.9 - Irritable bowel syndrome without diarrhea Category: Medical (2) Pre-op examination: Code(s): Z01.818 - Encounter for other preprocedural examination Category: Medical Plan She has severe and worsening vasovagal sx attacks so bad she will sweat, lose consciousness, have hand cramping and numb legs. She will also have severe abdominal cramping. This will not resolve until she has emptied out completely. Her fiance has also witnessed these attacks and the fact that she is not responsive during them. Fortunately she has not fallen or injured herself. Past had diarrheal accidents r/t severe anxiety. Was helped with bentyl, will restart every qhs and prn. Colonoscopy due and although I do not expect that this will contribute significantly to her diagnosis and treatment it is important for colon cancer screening. She denies any cardiac or respiratory problems. There are no prior problems with anesthesia or sedation. There are no infectious disease problems. No FHX of CRC or polyps. ROV 6 weeks. Orders: Orders 2 Colonoscopy - GI Use Only 02/15/24 Z01.818 - Encounter for other preprocedural examination Medications: New 2 dicyclomine 20 mg PO TID 90 tabs 3RF 30 days K58.9 - Irritable bowel syndrome without diarrhea peg 3350-electrolytes 236-22.74-6.74 -5.86 gram (Golytely) until fecal effluent is clear; do not exceed a total volume of 2,000 mL 240 mL PO Q10M 4,000 mL 0RF 1 day Z12.11 - Encounter for screening for malignant neoplasm of colon Coding Level of Care Code New Pt Level 3 (41056) Diagnoses IBS (irritable colon syndrome) K58.9 Pre-op examination Z01.818
[2024-02-15 13:26] VITALS: BP 133/90; PULSE 92; BMI 33.7
== END 2024-02-15 14:15 | disposition home or self-care (01) ==
PROVIDERS: PCP Internal Medicine; Visit Provider Nurse Practitioner
DX: K58.9 Irritable bowel syndrome, unspecified (principal); Z01.818 Encounter for other preprocedural examination
CPT/HCPCS: 99203

== ENCOUNTER → 2024-02-15 13:09 | Outpatient (BNVA) | payer OTHER, SELFPAY | PROVIDERS: PCP Internal Medicine; Visit Provider Nurse Practitioner ==

== ENCOUNTER 2024-03-19 07:55 | Outpatient (AMB) | payer OTHER, SELFPAY ==
[2024-03-19 07:58] VITALS: BP 122/80; BMI 33.6
--- NOTE | 2024-03-19 07:58 | A.OFFPC_ITS ---
Vital Signs 03/19/24 07:58 Height 5 ft 1 in Weight 178 lb BMI 33.6 BP 122/80 Blood Pressure Location Lt brachial Position Sitting Intake Visit Reasons: BP Intake Note: Patient here for a follow up BP Outpatient Scheduler Required: No Accompanied by: Self / Same As Patient Allergies metronidazole [From Metrogel] Allergy (Intermediate, Verified 03/19/24 08:08) Rash Medication List - Last Reconciled 03/19/24 by Christal Jimenez MD cholecalciferol (vitamin D3) 25 mcg PO DAILY dicyclomine 20 mg PO TID 30 days hydrochlorothiazide 25 mg PO QAM 90 days levonorgestrel (Mirena) intrauterine lorazepam 0.5 mg PO BEDTIME PRN 30 days losartan 50 mg PO BID 90 days peg 3350-electrolytes 236-22.74-6.74 -5.86 gram (Golytely) 240 mL PO Q10M 1 day Tobacco use date assessed: 09/15/23 Dental Screening Dental Screen Date: 03/19/24 Did you have a dental visit in the last 12 months?: Yes Did you have a dental problem in the last 6 months where you did not have access to dental care?: No Was dental information given to patient?: Patient has dentist HPI HPI Comments History of Present Illness Details This is a 49-year-old female with hypertension, anxiety and low vitamin-D that comes today complaining of insomnia that has been present for few weeks. Blood pressure stable. Anxiety stable with benzodiazepines as needed. On vitamin-D supplements for her low vitamin-D. Sleep hygiene education was given and I will start her on trazodone as needed. No chest pain or shortness on breath. She is obese with a BMI of 33.6 and was advised to diet and exercise to reach BMI goal less than 30. [facility], [facility] Medical History (Updated 03/19/24 @ 08:42 by Christal Jimenez MD) Left sided sciatica Kidney stone Left flank pain Urinary frequency Weight loss Abnormal surgical wound Dysuria IUD surveillance Right tennis elbow History of uterine fibroid Chest congestion Pernicious anemia At high risk for breast cancer Family history of breast cancer Encounter for pre-operative cardiovascular clearance Preop cardiovascular exam Preoperative clearance Physical exam Physical exam BRCA negative Essential hypertension B12 deficiency Hypovitaminosis D Anxiety Chronic GERD Hypertension Surgical History History of breast lift History of breast implant Hx of abdominoplasty History of mammogram History of removal of cyst History of tubal ligation Family History Mother Diabetes High blood pressure Breast cancer Cervical cancer Father Cancer Alzheimer disease Parkinsons disease Maternal Grandmother Breast cancer Social History (Updated 03/19/24 @ 08:12 by Christal Jimenez MD) Household Members: Family Housing: House Alcohol intake: current Alcohol intake frequency: holidays/special occasions only Alcohol type: hard liquor Patient Tobacco Use Status: Never used Tobacco e-Cigarette/Vaping Use: Never Used Second Hand Smoke Exposure: No Substance Use Type: Marijuana service: No Current occupational status: employed Current occupational exposures/hazards: No Cognitive needs: No Hearing needs: No Vision needs: No Female Reproductive History Menstrual Age of Menarche: 14 Questionnaire Thrive Questionnaire Date Thrive assessed: 09/15/23 Are you currently unemployed and looking for a job?: No AUDIT C Alcohol Use Questionnaire (AUDIT-C) 1. How often do you have a drink containing alcohol?: Monthly or less 2. How many drinks containing alcohol do you have on a typical day when you are drinking?: 1 or 2 3. How often do you have six or more drinks on one occasion?: Never Total Score: 1 Score Reviewed/Action Taken: No ROSIE-7 AMB Questionnaire ROSIE-7 Date ROSIE - 7 assessed: 09/15/23 Source: Developed by Drs. Wilbert Schrader, Larissa Allen, Wing Ramírez and colleagues, with an educational ifeoma from [employer]. Review of Systems Const All systems reviewed & are unremarkable except as noted in HPI and below Card Denies chest pain at rest, Denies chest pain with activity, Denies edema, Denies irregular heart rhythm, Denies claudication, Denies dyspnea, Denies dyspnea on exertion, Denies orthopnea, Denies paroxysmal nocturnal dyspnea and Denies slow heart rate Resp Denies cough, Denies dyspnea and Denies dyspnea on exertion GI Denies abdominal pain, Denies change in bowel habits, Denies excessive flatus, Denies nausea and Denies vomiting Denies urinary incontinence, Denies urinary hesitancy and Denies urinary urgency Musc Denies atrophy, Denies deformity and Denies limited range of motion Skin/Breast Denies bleeding lesions, Denies changing lesions and Denies rash Psych Reports abnormal sleep pattern Physical exam (Primary Care) Vital Signs: Last Vital Signs BP 122/80 03/19/24 07:58 BMI result Body Mass Index 33.6 BMI Assessment/Plan discussion: High BMI High, discussed plan: lifestyle, weight reduction, dietary and physical activity Tobacco/Smoking Status: Tobacco use Status Tobacco use date assessed 09/15/23 03/19/24 08:04 Patient Tobacco Use Status Never used Tobacco 03/19/24 08:12 e-Cigarette/Vaping Use Never Used 03/19/24 08:12 Thrive Assessment: Date of Thrive Assessment Date Thrive assessed 09/15/23 03/19/24 08:04 Resp Effort & Inspection: normal respiratory effort Auscultation: clear to auscultation bilaterally Cardio Jugular venous distension: no JVD Rate: regular rate Rhythm: regular rhythm Heart sounds: S1 normal heart sound present and S2 normal heart sound present Extrem General: Yes full ROM Assessment and Plan Assessment & Plan (1) Essential hypertension: Code(s): I10 - Essential (primary) hypertension Plan: Continue losartan and hydrochlorothiazide. Blood pressure goal is equal or less than 130/80. (2) Hypovitaminosis D: Code(s): E55.9 - Vitamin D deficiency, unspecified Plan: Continue vitamin-D supplement. (3) Anxiety: Code(s): F41.9 - Anxiety disorder, unspecified Plan: Continue benzodiazepines as needed. (4) Insomnia: Code(s): G47.00 - Insomnia, unspecified Plan: Continue trazodone as needed. Orders: Orders Lipid Panel 6 Months I10 - Essential (primary) hypertension Comprehensive [place]. Panel Fast 6 Months I10 - Essential (primary) hypertension Vitamin D 25-OH Total 6 Months E55.9 - Vitamin D deficiency, unspecified Vitamin B12 and Folate 6 Months E53.8 - Deficiency of other specified B group vitamins Medications: New trazodone 50 mg PO BEDTIME PRN 90 tabs 0RF sleep 90 days Coding Level of Care Code Est Pt Level 4 (02425) Complex EM visit Add On G2211 Diagnoses Essential hypertension I10 Hypovitaminosis D E55.9 Anxiety F41.9 Insomnia G47.00 Time Spent (min) 22
== END 2024-03-19 08:17 | disposition home or self-care (01) ==
PROVIDERS: PCP Internal Medicine; Visit Provider Internal Medicine
DX: I10 Essential (primary) hypertension (principal); E55.9 Vitamin D deficiency, unspecified; F41.9 Anxiety disorder, unspecified; G47.00 Insomnia, unspecified

== ENCOUNTER → 2024-03-19 07:55 | Outpatient (BNVA) | payer OTHER, SELFPAY | PROVIDERS: PCP Internal Medicine; Visit Provider Internal Medicine | DX: I10 Essential (primary) hypertension (principal); E55.9 Vitamin D deficiency, unspecified; F41.9 Anxiety disorder, unspecified; G47.00 Insomnia, unspecified; Z79.899 Other long term (current) drug therapy ==

== ENCOUNTER 2024-03-29 15:44 | Outpatient (AMB) | payer OTHER, SELFPAY ==
--- NOTE | 2024-03-29 15:47 | A.OFFVIS_ITS ---
Vital Signs 03/29/24 15:49 Height 5 ft 1 in Weight 180 lb 12.465 oz BMI 34.2 BP 137/77 Blood Pressure Location Lt brachial Position Sitting Pulse 80 Intake Visit Reasons: 6 week follow up Intake Note: Dalila presents in the office as a 6 week follow up. CC: Just a routine follow up - not having any concerns at this time. Pathology Specialist Required: No Allergies metronidazole [From Metrogel] Allergy (Intermediate, Verified 03/29/24 15:54) Rash HPI HPI 6 week follow up: Details: Assessment & Plan (1) IBS (irritable colon syndrome): Comment: with urgency Code(s): K58.9 - Irritable bowel syndrome without diarrhea Category: Medical (2) Pre-op examination: Code(s): Z01.818 - Encounter for other preprocedural examination Category: Medical Plan She has severe and worsening vasovagal sx attacks so bad she will sweat, lose consciousness, have hand cramping and numb legs. She will also have severe abdominal cramping. This will not resolve until she has emptied out completely. Her fiance has also witnessed these attacks and the fact that she is not responsive during them. Fortunately she has not fallen or injured herself. Past had diarrheal accidents r/t severe anxiety. Was helped with bentyl, will restart every qhs and prn. Colonoscopy due and although I do not expect that this will contribute significantly to her diagnosis and treatment it is important for colon cancer screening. She denies any cardiac or respiratory problems. There are no prior problems with anesthesia or sedation. There are no infectious disease problems. No FHX of CRC or polyps. ROV 6 weeks. Orders: Orders Colonoscopy - GI Use Only 02/15/24 Z01.818 - Encounter for other preprocedural examination Medications: New dicyclomine 20 mg PO TID 90 tabs 3RF 30 days K58.9 - Irritable bowel syndrome without diarrhea peg 3350-electrolytes 236-22.74-6.74 -5.86 gram (Golytely) until fecal effluent is clear; do not exceed a total volume of 2,000 mL 240 mL PO Q10M 4,000 mL 0RF 1 day Z12.11 - Encounter for screening for malignant neoplasm of colon COLONOSCOPY BIOPSY TODAY'S VISIT She was greatly helped with the bentyl and she has had no more attacks with this she is satisfied with her GI regimen. ROV after colonoscopy PFSH Medical History Left sided sciatica Kidney stone Left flank pain Urinary frequency Weight loss Abnormal surgical wound Dysuria IUD surveillance Right tennis elbow History of uterine fibroid Chest congestion Pernicious anemia At high risk for breast cancer Family history of breast cancer Encounter for pre-operative cardiovascular clearance Preop cardiovascular exam Preoperative clearance Physical exam Physical exam BRCA negative Essential hypertension B12 deficiency Hypovitaminosis D Anxiety Chronic GERD Hypertension Surgical History History of breast lift History of breast implant Hx of abdominoplasty History of mammogram History of removal of cyst History of tubal ligation Family History Mother Diabetes High blood pressure Breast cancer Cervical cancer Father Cancer Alzheimer disease Parkinsons disease Maternal Grandmother Breast cancer Social History Household Members: Family Housing: House Alcohol intake: current Alcohol intake frequency: holidays/special occasions only Alcohol type: hard liquor Patient Tobacco Use Status: Never used Tobacco e-Cigarette/Vaping Use: Never Used Second Hand Smoke Exposure: No Substance Use Type: Marijuana service: No Current occupational status: employed Current occupational exposures/hazards: No Cognitive needs: No Hearing needs: No Vision needs: No Female Reproductive History Menstrual Age of Menarche: 14 Review of Systems Const Denies fatigue, Denies fever(s), Denies night sweats, Denies poor appetite and Denies weight loss ENT Reports Normal hearing present, Denies dental pain, Denies dysphagia, Denies hearing loss, Denies mouth pain, Denies odynophagia, Denies throat swelling, Denies tongue swelling and Reports other (Dentition adequate) Card Reports no additional complaints Resp Reports no additional complaints GI Details: Denies abdominal pain, Denies melena, Denies bloating, Denies hematochezia, Denies constipation, Reports GI cramping, Denies dysphagia, Denies excessive flatus, Denies early satiety, Denies heartburn, Denies diarrhea, Reports loose stools, Denies nausea, Denies odynophagia, Denies vomiting and Denies hematemesis Skin/Breast Denies pruritus, Denies lesions, Denies rash and Denies jaundice Neuro Reports Normal hearing present and Denies Abnormal speech present Endo Denies fatigue Aller/Immun Denies throat swelling and Denies tongue swelling Physical Exam Vital Signs: Last Vital Signs Pulse 80 03/29/24 15:49 BP 137/77 03/29/24 15:49 BMI result Body Mass Index 34.2 Const General: cooperative, no acute distress, well developed and well groomed Nutritional Appearance: well nourished and obese Orientation/consciousness: oriented to person, oriented to place and oriented to time Limitations: No language barrier HEENT Head: Yes normocephalic and Yes atraumatic Eyes General: appearance normal, both eyes and all related structures Pupils: Equal, round and reactive pupils present Neck Neck: Yes normal visual inspection and Yes no lymphadenopathy Thyroid: Thyroid normal Resp Effort & Inspection: normal respiratory effort and able to speak in complete sentences Auscultation: clear to auscultation bilaterally Cardio Rate: regular rate Rhythm: regular rhythm Heart sounds: Normal, physiologic split S2 sound present Peripheral pulses: radial pulses present and posterior tibial pulses present GI Inspection: No distended, No Abdominal panniculus present and Yes obesity Palpation (GI): Soft to palpation, nontender, no guarding, not rigid and No hepatosplenomegaly present Percussion: Yes normal to percussion Auscultation: normal bowel sounds Rectal Exam - Female: deferred Skin General skin exam: no rashes or lesions noted, turgor normal, skin not dry, no jaundice, No spider nevi and no striae Rashes: no rashes Nails: normal Neuro General: oriented to person, oriented to place and oriented to time Cranial nerves: Yes Equal, round and reactive pupils present and Yes Normal hearing present Speech: No Abnormal speech present Extrem General: Yes normal to inspection, No clubbing, No cyanosis and No edema Psych Appearance: grossly normal and well kempt Mental Status: mental status grossly normal Speech and movement: Normal speech and movement present Affect: normal affect Attitude: cooperative Thought process: Normal thought process present and not confabulating Thought content: Normal thought content present Insight: Fair insight present (Psych) Judgement: Fair judgement present (Psych) Assessment & Plan Assessment & Plan (1) IBS (irritable colon syndrome): Comment: with urgency Code(s): K58.9 - Irritable bowel syndrome without diarrhea Category: Medical Plan: She was greatly helped with the bentyl and she has had no more attacks with this she is satisfied with her GI regimen. ROV after colonoscopy COLONOSCOPY BIOPSY Coding Level of Care Code Est Pt Level 3 (43570) Diagnoses IBS (irritable colon syndrome) K58.9
[2024-03-29 15:49] VITALS: BP 137/77; PULSE 80; BMI 34.2
== END 2024-03-29 16:16 | disposition home or self-care (01) ==
PROVIDERS: PCP Internal Medicine; Visit Provider Nurse Practitioner
DX: K58.9 Irritable bowel syndrome, unspecified (principal)
CPT/HCPCS: 99213

== ENCOUNTER → 2024-03-29 15:44 | Outpatient (BNVA) | payer OTHER, SELFPAY | PROVIDERS: PCP Internal Medicine; Visit Provider Nurse Practitioner ==

== ENCOUNTER 2024-05-28 09:38 | Outpatient (REF) | payer OTHER, SELFPAY ==
--- NOTE | ~2024-05-28 | MM_ITS ---
EXAMINATION: MM SCREENING DIGITAL BREAST TOMOSYNTHESIS, BILATERAL CLINICAL INFORMATION: Screening. Asymptomatic. COMPARISON: Mammography: Comparison is made with relevant avialable priors. TECHNIQUE: Digital mammography is performed in craniocaudal and mediolateral oblique views along with computer-aided detection (CAD). Digital breast tomosynthesis is performed in implant-displaced craniocaudal and implant-displaced mediolateral oblique views along with computer-aided detection (CAD). FINDINGS: The breasts are heterogeneously dense, which may obscure small masses (ACR BI-RADS breast composition Category c). Bilateral retropectoral implants are stable appearing. Circumscribed oval mass upper outer left breast posterior depth likely intramammary lymph node stable dating back to 2021 and therefore benign. There are no significant masses, abnormal calcifications, or other abnormalities. MM/MM tomosynthesis screen imp BI IMPRESSION: There are no significant changes from prior study. ASSESSMENT: BI-RADS BI-RADS 2 - Benign Findings RECOMMENDATION: Routine annual mammography screening. 1 year F/U This patient's information was entered into a reminder system with a target due date for their next mammogram. Electronically signed by: Lu Arellano DO 06/06/2024 01:44 PM [facility]OHIT
== END 2024-05-28 09:39 | disposition home or self-care (01) ==
LOC: HO.MAMMO 09:38
PROVIDERS: PCP Internal Medicine; Visit Provider Internal Medicine
DX: Z12.31 Encounter for screening mammogram for malignant neoplasm of breast (principal)
CPT/HCPCS: 77063; 77067

== ENCOUNTER → 2024-05-28 09:45 | Outpatient (BNV) | payer OTHER, SELFPAY | PROVIDERS: PCP Internal Medicine; Visit Provider Internal Medicine | DX: Z12.31 Encounter for screening mammogram for malignant neoplasm of breast (principal) | CPT/HCPCS: 77063; 77067 ==

== ENCOUNTER 2024-09-17 07:32 | Outpatient (AMB) | payer OTHER, SELFPAY ==
[2024-09-17 07:34] VITALS: BP 136/82; BMI 36.7
--- NOTE | 2024-09-17 07:34 | A.OFFPC_ITS ---
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 Accompanied by: Self / Same As Patient Allergies metronidazole [From Metrogel] Allergy (Intermediate, Verified 09/17/24 07:46) Rash Medication List - Last Reconciled 09/17/24 by Christal Jimenez MD cholecalciferol (vitamin D3) 25 mcg PO DAILY dicyclomine 20 mg PO TID hydrochlorothiazide 25 mg PO QAM 90 days levonorgestrel (Mirena) intrauterine lorazepam 0.5 mg PO BEDTIME PRN 30 days losartan 50 mg PO BID 90 days Tobacco use date assessed: 09/17/24 Dental Screening Dental Screen Date: 09/17/24 Did you have a dental visit in the last 12 months?: Yes Did you have a dental problem in the last 6 months where you did not have access to dental care?: No Was dental information given to patient?: Patient has dentist HPI HPI Comments History of Present Illness Details The patient is a 49-year-old female presenting for her annual physical examination and Tdap vaccination. She has a significant family history of various forms of cancer: breast, cervical, prostate, and kidney cancer, leading to immediate concern about her health maintenance. The patient also has a history of Class II obesity with current concerns about her increasing weight, placing her BMI at 36. She received a diagnosis of prediabetes in the past, a condition that requires ongoing monitoring. In addition to these concerns, the patient was previously found to have positive antiparietal cell antibodies correlating with pernicious anemia, for which further investigation into her vitamin B12 status is necessary. Her maternal family background includes significant occurrences of breast and cervical cancer, while the paternal line contributes a history of prostate and kidney cancer. Medication adherence is essential as she takes both antihypertensives and anxiety medication, effectively managing essential hypertension and periodic anxiety. The patient is thorough about screening tests, scheduling a colonoscopy soon and having a recent mammogram with benign results. Additionally, her Pap smear one year ago was normal, with no HPV detected. With all these considerations, she comes in for a thorough check-up along with her Tdap vaccination, reflecting her awareness of preventative care responsibilities. - Tdap vaccination due today. - Mammography: Last performed May 05, showed benign findings. - Pap smear completed last year; results were normal with HPV-negative. - Colonoscopy scheduled for this month. - Bloodwork: Re-evaluate vitamin B12 lev els, given pernicious anemia. - Monitor blood glucose levels as previo us tests indicated prediabetes. [facility] Medical History Physical exam Left sided sciatica Kidney stone Left flank pain Urinary frequency Weight loss Abnormal surgical wound Dysuria IUD surveillance Right tennis elbow History of uterine fibroid Chest congestion Pernicious anemia At high risk for breast cancer Family history of breast cancer Encounter for pre-operative cardiovascular clearance Preop cardiovascular exam Preoperative clearance Physical exam BRCA negative Essential hypertension B12 deficiency Hypovitaminosis D Anxiety Chronic GERD Hypertension Surgical History History of breast lift History of breast implant Hx of abdominoplasty History of mammogram History of removal of cyst History of tubal ligation Family History Mother Diabetes High blood pressure Breast cancer Cervical cancer Father Cancer Alzheimer disease Parkinsons disease Maternal Grandmother Breast cancer Social History Household Members: Family Housing: House Alcohol intake: current Alcohol intake frequency: holidays/special occasions only Alcohol type: hard liquor Patient Tobacco Use Status: Never used Tobacco e-Cigarette/Vaping Use: Never Used Second Hand Smoke Exposure: No Substance Use Type: Marijuana service: No Current occupational status: employed Current occupational exposures/hazards: No Cognitive needs: No Hearing needs: No Vision needs: No Female Reproductive History Menstrual Age of Menarche: 14 Questionnaire PHQ-9 Over the last 2 weeks, how often have you been bothered by any of the following problems? 1. Little interest or pleasure in doing things: not at all 2. Feeling down, depressed, or hopeless: not at all 3. Trouble falling or staying asleep, or sleeping too much: not at all 4. Feeling tired or having little energy: not at all 5. Poor appetite or overeating: not at all 6. Feeling bad about yourself - or that you are a failure or have let yourself or your family down: not at all 7. Trouble concentrating on things, such as reading the newspaper or watching television: not at all 8. Moving or speaking so slowly that other people could have noticed. Or the opposite - being so fidgety or restless that you have been moving around a lot more than usual: not at all 9. Thoughts that you would be better off or of hurting yourself in some way: not at all Total score: 0 Depression Screening Interpretation: Negative Depression Screening Done: Yes 36693 - PHQ-9 Billing: Yes Source: Developed by Drs. Wilbert Schrader, Larissa Allen, Wing Ramírez and colleagues, with an educational ifeoma from [employer]. Thrive Questionnaire Date Thrive assessed: 09/15/24 I am a: Patient What is your living situation today?: I have a steady place to live Within the past 12 months, did the food you bought not last and you didn't have the money to get more?: Never true Within the past 12 months, did you worry whether your food would run out before you got money to buy more?: Never true Do you have trouble paying for medicines?: No Do you have trouble getting transportation to medical appointments?: No Do you have trouble paying your heating and electricity bill?: No Do you have trouble taking care of your child, family member or friend?: No Do you have trouble with day-to-day activities such as bathing, preparing meals, shopping, managing finances, etc.?: No Are you currently unemployed and looking for a job?: No Are you interested in more education?: No Please select the resources that you would like help with: None Currently or been in a relationship where the following occur: No concerns reported THRIVE Score: 0 AUDIT C Alcohol Use Questionnaire (AUDIT-C) 1. How often do you have a drink containing alcohol?: Monthly or less 2. How many drinks containing alcohol do you have on a typical day when you are drinking?: 1 or 2 3. How often do you have six or more drinks on one occasion?: Never Total Score: 1 Score Reviewed/Action Taken: No ROSIE-7 AMB Questionnaire ROSIE-7 Date ROSIE - 7 assessed: 09/17/24 Feeling nervous, anxious, or on edge: 1 = Several days Not being able to stop or control worryin = Several days Worrying too much about different things: 1 = Several days Trouble relaxin = Several days Being so restless that it is hard to sit still: 0 = Not at all Becoming easily annoyed or irritable: 1 = Several days Feeling afraid as if something awful might happen: 1 = Several days Total ROSIE-7 score (0-4 normal; 5-9 mild; 10-14 moderate; 15-21 severe): 6 Source: Developed by Drs. Wilbert Schrader, Larissa Allen, Wing Ramírez and colleagues, with an educational ifeoma from [employer]. ROSIE-7 Assessment Billing ROSIE-7 Assessment Tool: ROSIE-7 Assessment 75701 Review of Systems Const All systems reviewed & are unremarkable except as noted in HPI and below Eyes Reports no additional complaints, Denies change in vision and Denies other visual disturbances Card Denies chest pain at rest, Denies chest pain with activity, Denies edema, Denies irregular heart rhythm, Denies claudication, Denies dyspnea, Denies dyspnea on exertion, Denies orthopnea, Denies paroxysmal nocturnal dyspnea and Denies slow heart rate Resp Denies cough, Denies dyspnea and Denies dyspnea on exertion GI Denies abdominal pain, Denies change in bowel habits, Denies excessive flatus, Denies nausea and Denies vomiting Denies urinary incontinence, Denies urinary hesitancy and Denies urinary urgency Neuro Denies lack of coordination Physical exam (Primary Care) Vital Signs: Last Vital Signs BP 136/82 09/17/24 07:34 BMI result Body Mass Index 36.7 BMI Assessment/Plan discussion: High BMI High, discussed plan: lifestyle, weight reduction, dietary and physical activity Tobacco/Smoking Status: Tobacco use Status Tobacco use date assessed 09/17/24 09/17/24 07:40 Patient Tobacco Use Status Never used Tobacco 09/17/24 07:40 e-Cigarette/Vaping Use Never Used 09/17/24 07:40 PHQ-9: PHQ-9 Score PHQ-9: Total score 0 09/17/24 08:03 Depression Screening Interpretation: Negative Thrive Assessment: Date of Thrive Assessment Date Thrive assessed 09/15/24 09/17/24 07:40 Currently or been in a relationship where the following occur: No concerns reported HENTN Head: Yes normal to inspection, Yes normocephalic and Yes atraumatic Ears: external ears normal Eyes General: appearance normal, both eyes and all related structures Eyelids: Yes eyelids normal Conjunctivae: conjunctivae normal Neck Neck: Yes normal visual inspection and Yes supple Resp Effort & Inspection: normal respiratory effort Auscultation: clear to auscultation bilaterally Cardio Jugular venous distension: no JVD Rate: regular rate Rhythm: regular rhythm Heart sounds: S1 normal heart sound present and S2 normal heart sound present GI Inspection: Yes normal to inspection Palpation (GI): Soft to palpation and nontender Auscultation: normal bowel sounds Skin General skin exam: no rashes or lesions noted Neuro General: no focal motor deficits Extrem General: Yes full ROM Psych Appearance: grossly normal Immunizations Boostrix Tdap 2.5 Lf unit-8 mcg-5 Lf/0.5 mL intramuscular syringe Performing Provider: Christal Jimenez MD [facility] Administered by: CHRIS Cummins on 09/17/24 08:03 Dose Route Admin Location Dispensed Lot Number Expiration Date 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 mL IM Left Deltoid 0.5 mL [id number] 10/20/26 19436-359-74 [employer] VIS Given Date VIS Provided VIS Publication Date 09/17/24 Single Vaccine 21 Eligibility Eligibility Date Funding Source Not [facility] Eligible 09/17/24 Private Coding Level of Care Code Est Pt Level 3 (56200) Est Pt Prev Care 40-64y(88312) Diagnoses Physical exam Z00.00 Severe obesity with body mass index (BMI) of 36.0 to 36.9 with serious comorbidity E66.01; Z68.36 Additional Codes ROSIE-7 Assessment Billing - ROSIE-7 Assessment Tool: ROSIE-7 Assessment 72721 ([id number]) PHQ-9 - 09024 - PHQ-9 Billing: Yes ([id number]) Time Spent (min) 31 Assessment & Plan Assessment & Plan (1) Physical exam: Code(s): Z00.00 - Encounter for general adult medical examination without abnormal find ings Category: Medical (2) Severe obesity with body mass index (BMI) of 36.0 to 36.9 with serious comorbidity: Code(s): E66.01 - Morbid (severe) obesity due to excess calories; Z68.36 - Body mass index [BMI] 36.0-36.9, adult Category: Medical Plan Following discussion with the patient today, arrangements were made for the administration of the Tdap vaccine, with compliance for continual screening as evidenced by her routine Pap smear and upcoming colonoscopy. Given her current BMI and evaluation of risk factors, referral for bariatric surgery assessment will be completed under Dr. Silva. Laboratory tests will confirm vitamin levels in light of pernicious anemia, alongside regular blood glucose monitoring to manage prediabetes. The patient is advised to adhere to her antihypertensive medication regimen, ensuring the effective management of her blood pressure parameters. Preventive screening and familial cancer history were priority topics, confirming her ongoing commitment to health maintenance. Patient was informed and verbally consented to the use of an ambient scribe for clinic note documentation during this visit. I reviewed with the patient the significance of maintaining health screenings, especially considering her extensive family history of cancer. We discussed the patient's obesity, her Class II status, and the appropriateness of considering surgical intervention, resulting in a referral for bariatric evaluation. The implications of her positive antiparietal cell antibodies and their correlation with pernicious anemia were addressed, recommending routine checks of her vitamin B12 levels. We discussed the importance of follow-up blood glucose screening, given her status as prediabetic. The benefits, risks, and necessity of maintaining her current medication regimen were detailed, emphasizing their role in controlling hypertension and anxiety. We confirmed the Tdap vaccine administration during this visit, particularly relevant to her workplace requirements. Lastly, plans for regular mammogram and colonoscopy screenings were reinforced as part of overall preventive health strategies. Orders: Orders Vitamin B12 and Folate Today E53.8 - Deficiency of other specified B group vitamins Comprehensive [place]. Panel Fast Today Z00.00 - Encounter for general adult medical examination without abnormal findings TDaP Immunization Today Z23 - Encounter for immunization Vitamin D 25-OH Total Today E55.9 - Vitamin D deficiency, unspecified Complete Blood Count Auto Diff Today D64.9 - Anemia, unspecified, E53.8 - Deficiency of other specified B group vitamins Lipid Panel Today Z00.00 - Encounter for general adult medical examination without abnormal findings Referrals Medical Weight Management Referral E66.01 - Morbid (severe) obesity due to excess calories, Z68.36 - Body mass index [BMI] 36.0-36.9, adult Patient Instructions: - Receive Tdap vaccine today. - Continue with regular preventive screenings, including upcoming colonoscopy. - Monitor blood glucose regularly and discuss levels in follow-up visits. - Ensure adherence to the blood pressure and anxiety medication regimen. - Monitor changes in weight and dietary habits for obesity management. - Plan follow-up with Dr. Silva for potential surgical intervention.
== END 2024-09-17 08:02 | disposition home or self-care (01) ==
LOC: HO.HMCH 07:33
PROVIDERS: PCP Internal Medicine; Visit Provider Internal Medicine
DX: Z00.00 Encounter for general adult medical examination without abnormal findings (principal); E66.01 Morbid (severe) obesity due to excess calories; Z68.36 Body mass index [BMI] 36.0-36.9, adult; Z23 Encounter for immunization

== ENCOUNTER → 2024-09-17 07:32 | Outpatient (BNVA) | payer OTHER, SELFPAY | PROVIDERS: PCP Internal Medicine; Visit Provider Internal Medicine | DX: Z00.00 Encounter for general adult medical examination without abnormal findings (principal); Z23 Encounter for immunization; E66.01 Morbid (severe) obesity due to excess calories; Z68.36 Body mass index [BMI] 36.0-36.9, adult | CPT/HCPCS: 90471; 90715; 96127 ==

== ENCOUNTER → 2024-09-19 08:22 | Outpatient (BNVA) | payer OTHER, SELFPAY | PROVIDERS: PCP Internal Medicine; Visit Provider Physician Assistant Surgical ==

== ENCOUNTER 2024-09-20 07:55 | Outpatient (AMB) | payer OTHER, SELFPAY ==
--- NOTE | 2024-09-20 07:57 | MHC.OFFVIS ---
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 Doing well with nurse gynecology concerns: Stress incontinence. Doing well with the Mirena happy she has had placed to correct the AUB. Currently is sexually active. She denies vaginal itching and irritation. STI screening offered; she declines. She tries to eat healthy and stays active with exercise. Prediabetic, plans to see a hospice consultant, seen at [facility]. Denies family history of ovarian or colon cancer. Family history of breast cancer. She is BRCA negative. Last pap smear 2023, negative. Mammogram: 2023. Colonoscopies appointment as scheduled. [facility] Medical History (Updated 09/20/24 @ 08:47 by Neha White CNM) Stress incontinence Physical exam Left sided sciatica Kidney stone Left flank pain Urinary frequency Weight loss Abnormal surgical wound Dysuria Right tennis elbow History of uterine fibroid Chest congestion Pernicious anemia At high risk for breast cancer Family history of breast cancer Encounter for pre-operative cardiovascular clearance Preop cardiovascular exam Preoperative clearance Physical exam BRCA negative Essential hypertension B12 deficiency Hypovitaminosis D Anxiety Chronic GERD Hypertension Surgical History History of breast lift History of breast implant Hx of abdominoplasty History of mammogram History of removal of cyst History of tubal ligation Family History Mother Diabetes High blood pressure Breast cancer Cervical cancer Father Cancer Alzheimer disease Parkinsons disease Maternal Grandmother Breast cancer Social History Household Members: Family Housing: House Alcohol intake: former Patient Tobacco Use Status: Never used Tobacco e-Cigarette/Vaping Use: Never Used Second Hand Smoke Exposure: No Substance Use Type: Marijuana service: No Current occupational status: employed Current occupational exposures/hazards: No Cognitive needs: No Hearing needs: No Vision needs: No Female Reproductive History Menstrual Age of Menarche: 14 control method: progestin IUCD (Mirena 10/2021) and permanent sterilization Permanent Sterilization: BTL Total pregnancies: 2 Full term: 2 Number of Living Children: 2 Date of last pap smear: 09/14/23 (neg pap and hpv) History of abnormal pap smear: Yes (06/17 ascus 02/20 ascus) Date of Mammogram: 05/28/24 (Birad 2) Review of Systems Const All systems reviewed & are unremarkable except as noted in HPI and below Reports as per HPI Eyes Reports no additional complaints ENT Reports no additional complaints Card Reports no additional complaints Resp Reports no additional complaints GI Reports as per HPI and Reports no additional complaints Reports as per HPI Musc Reports no additional complaints Skin/Breast Reports as per HPI Neuro Reports no additional complaints Psych Reports no additional complaints Endo Reports no additional complaints Abdifatah/Lymph Reports no additional complaints Aller/Immun Reports no additional complaints Physical Exam Vital Signs: Last Vital Signs BP 122/78 09/20/24 07:58 BMI result Body Mass Index 35.3 Const General: cooperative, healthy appearing, no acute distress, well developed and alert Orientation/consciousness: patient oriented x3 HEENT Head: Yes normal to inspection Eyes General: appearance normal, both eyes and all related structures Neck Neck: Yes normal visual inspection Thyroid: Thyroid normal Chest Other: Bilateral breast implants and reconstruction scarring Chest palpation & inspection: normal inspection of the chest and other (no puckering, dimpling, peau de orange, retraction, discharge, masses) Breast/axilla inspection: normal inspection of the breasts Breast/axilla palpation: normal palpation of the breasts Resp Effort & Inspection: normal respiratory effort GI Inspection: Yes normal to inspection and Yes scar Palpation (GI): Soft to palpation Rectal Exam - Female: deferred General: Yes bladder normal to palpation External Female Exam: normal external appearance and normal appearance of the urethra Speculum Exam - Vagina: normal appearance of the vagina, normal palpation and normal vaginal discharge Speculum Exam - Cervix: normal appearance of the cervix, normal palpation and Other cervical findings present (IUD strings present at the os) Bimanual exam- vagina & uterus: normal bimanual exam, normal palpation, uterine size normal, bladder normal to palpation, normal palpation and non-tender Bimanual Exam- Adnexa, other: no masses Skin General skin exam: no rashes or lesions noted Rashes: no rashes Neuro General: patient oriented x3 Cognition (Neuro): normal cognition Extrem General: Yes normal to inspection Psych Attitude: cooperative Thought process: Normal thought process present Assessment & Plan Assessment & Plan (1) Encounter for well woman exam with routine gynecological exam: Code(s): Z01.419 - Encounter for gynecological examination (general) (routine) without abnormal findings Category: Medical Plan: Discussed: Current recommendations for pap smears per ASCCP guidelines. Breast awareness and periodic breast exams. Mammogram yearly. Maintain a healthy lifestyle including a well balanced diet and routine exercise. Patient verbalizes understanding and agrees to the plan of care. She was given opportunity to ask questions and all questions were answered to the best of my ability. RTO in one year for annual nurse gynecology examination. This note is constructed using voice recognition software. While every effort has been made to ensure accuracy, actuarial intern errors may have been included. (2) Stress incontinence: Code(s): N39.3 - Stress incontinence (female) (male) Category: Medical Plan Discussed options for urology referral and pelvic floor physical therapy, she prefers to have physical therapy at this time. Referral placed today. Orders: Referrals Pelvic Import Customs Clearing Agent Referral N39.3 - Stress incontinence (female) (male) Coding Level of Care Code Est Pt Prev Care 40-64y(31836) Diagnoses Encounter for well woman exam with routine gynecological exam Z01.419 Stress incontinence N39.3
[2024-09-20 07:58] VITALS: BP 122/78; BMI 35.3
== END 2024-09-20 08:40 | disposition home or self-care (01) ==
LOC: HO.HWS 07:56
PROVIDERS: PCP Internal Medicine; Visit Provider Advanced Practice Midwife
DX: Z01.419 Encounter for gynecological examination (general) (routine) without abnormal findings (principal); N39.3 Stress incontinence (female) (male)
CPT/HCPCS: 99396; 99459

== ENCOUNTER 2024-09-27 08:05 | Outpatient (AMB) | payer OTHER, SELFPAY ==
--- NOTE | 2024-09-27 08:13 | A.OFFVIS_ITS ---
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 Allergies metronidazole [From Metrogel] Allergy (Intermediate, Verified 09/27/24 08:13) Rash Medication List - Last Reconciled 09/27/24 by Niraj De La Vega MD bisacodyl (Dulcolax (bisacodyl)) 20 mg (4 x 5 mg) PO ONCE 1 day cholecalciferol (vitamin D3) 25 mcg PO DAILY dicyclomine 20 mg PO TID hydrochlorothiazide 25 mg PO QAM 90 days levonorgestrel (Mirena) intrauterine lorazepam 0.5 mg PO BEDTIME PRN 30 days losartan 50 mg PO BID 90 days simethicone (Gas Relief (simethicone)) 125 mg PO ONCE HPI 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: Details: Start time: 8.07am, End time: 9am ?I spent 48 minutes speaking with the patient on the phone plus an additional 5 minutes reviewing and updating records for a total of 53 minutes HPI Comments Details: Previous weight loss efforts: WW, [employer] Wakes up: 6am, Sleeps: 9pm Breakfast: 9am (2 waffles, outside breakfast) Lunch: 12-2pm (rice and tuna, or chicken) Dinner: 6pm (same as lunch) Snacks: 8pm (Yogurt) Exercise: none Beverages: Coffee (1 cup/d with creamer and sugar), tea: none, soda: Regular Pepsi daily, juice: none, ETOH: none PFSH Medical History (Updated 09/27/24 @ 08:47 by Niraj De La Vega MD) Obesity Stress incontinence Physical exam Left sided sciatica Kidney stone Left flank pain Urinary frequency Weight loss Abnormal surgical wound Dysuria Right tennis elbow History of uterine fibroid Chest congestion Pernicious anemia At high risk for breast cancer Family history of breast cancer Encounter for pre-operative cardiovascular clearance Preop cardiovascular exam Preoperative clearance Physical exam BRCA negative Essential hypertension B12 deficiency Hypovitaminosis D Anxiety Chronic GERD Hypertension Surgical History History of breast lift History of breast implant Hx of abdominoplasty History of mammogram History of removal of cyst History of tubal ligation Family History Mother Diabetes High blood pressure Breast cancer Cervical cancer Father Cancer Alzheimer disease Parkinsons disease Maternal Grandmother Breast cancer Social History Household Members: Family Housing: House Alcohol intake: former Patient Tobacco Use Status: Never used Tobacco e-Cigarette/Vaping Use: Never Used Second Hand Smoke Exposure: No Substance Use Type: Marijuana service: No Current occupational status: employed Current occupational exposures/hazards: No Cognitive needs: No Hearing needs: No Vision needs: No Female Reproductive History Menstrual Age of Menarche: 14 Telehealth Telehealth Telehealth Platform: Telephone Location of provider rendering services: practice address Location of patient: address on file Patient Identification confirmed using: Name, : Yes Telehealth method: voice only Patient verbally consented to treatment: Yes Patient verbally consented to billing insurance company: Yes Patient informed of any privacy concerns related to visit: Yes Minutes spent on Phone/Video with Pt.: 53 Assessment & Plan Assessment & Plan (1) Obesity: Code(s): E66.9 - Obesity, unspecified Category: Medical Qualifiers: Obesity type: due to excess calories Obesity classification: adult class 1 (BMI 30 - 34.9) Serious obesity comorbidity presence: with serious comorbidity Body mass index: BMI 34.0-34.9 Qualified Code(s): E66.811 - Obesity, class 1; E66.09 - Other obesity due to excess calories; Z68.34 - Body mass index [BMI] 34.0-34.9, adult Plan: 1.? Plan for lap sleeve gastrectomy. If diaphragmatic or ventral hernias are present at time of surgery, these will be repaired laparoscopically as well. I emphasized the importance of close follow-up, adherence to instructions and good communication. The surgery does not replace the need to change your lifestlyle which is the cause of the obesity problem. The surgery provides the motivation to try again to change your lifestyle, it reduces the appetite and make the transition to a better lifestyle easier and doubles the amount of weight you would lose compared to doing the lifestyle change without the surgery. You will need to be on a liquid diet with protein shakes for 2 weeks before surgery to maximize weight loss and boost your nutritional status to recover better from surgery and also for the first two weeks after surgery to let the stomach heal before we introduce other foods. After the first 2 weeks we will introduce protein bars and soft foods like scrambled eggs, cottage cheese and yogurt and after the 6th week will introduce meat, fish and cooked vegetables in small amounts. Over time you should be able to eat everything in small amounts. Side effects like nausea, vomiting, heartburn or abdominal pain are not common in the practice unless you are not following in the practice. This operation requires lifetime commitment to following in our practice and communication with me. You will much less weight and experience side effects if you don?t communicate or not following in the practice. Complications are rare and in our practice is about 1/10 of the national average. However, you can develop bleeding that may require transfusion (hasn?t happened for year in the practice), you may from complications (we did not have any deaths in the practice) and infections. Infections are usually a result of breakdown in communication or not understanding or following directions correctly. They are difficult to treat, they can happen during the first 6 weeks, they may require to be in the hospital for weeks or even months, not being able to eat by mouth and you may have drains and surgeries to try and correct the issue. Other risks and complications include possible conversion to an open procedure, leaks, small bowel obstruction, blood clots, cardiac, or pulmonary complications, as technician terminal and repeater complications such as ulcers, insufficient weight loss and vitamin deficiencies. 2. You will receive a link of our software dameon to generate an individualized nutritional and exercise plan specific for you. Please send me a screenshot of the plans you will generate Meal to include lean meat (beef, fish, pork, turkey, chicken), or yemeni yogurt, or egg whites, or beans with a salad with olive oil and fruits (berries, pears, apples, kiwi). Avoid salt, breads, potatoes, rice, pasta, desserts. ?3. If you choose shakes, each shake would be drunk slowly, like coffee in a period of 2 hours. ?4. If you choose bars, cut each bar in 4 pieces and eat each piece in 30min ?to make each bar last 2 hours. ?5. I emphasized the importance of measuring accurately the food portion and measure it when serving the food in plate ?6. The meal portions include a specific number of forks of meat and salad. You always eat the meat portion but you can replace up to half of salad/vegetables portion with rice, potatoes or pasta, or a fruit ?if you like. The less you do it the better weight loss will be. ?7. One full-size fork is what it can be scooped on the fork without falling aside and not what can be bit with the fork. Use regular forks like those you find in a typical restaurant. ?8.? Please buy the body composition scale we discussed and send me weight measurements as soon as possible and then once a week. Always include your diet and exercise plan. 9. The best choice would be to purchase a stationary bike, elliptical or treadmill at home that can track calories. Let me know if you do so I can give you an exercise plan. ?10.?Even though you have the Mirena and tubal ligation, it is important of avoiding and for at least 18 months postoperatively and has been discussed at the infosession. ?11. Goal is to lose at least 1.5-2lbs per week ?12. Goal to lose 10% of your weight before surgery, which is about 18lbs. Ultimate weight goal: 168lbs before surgery 13. Please follow the diet plan exactly without any change. If you don't like something about the plan or you feel hungry you need to communicate with me so I can help you revise the plan. You should not change the plan yourself. 14. To be scheduled for EGD to assess the stomach's anatomy. The possibility of biopsies was discussed. Patient needs to avoid use of NSAIDs and aspirin for 1 week prior to EGD. You must be on liquids only the day before your endoscopy. Risks of perforation and bleeding was discussed with the patient. This will be an outpatient procedure with IV sedation. Orders: Orders Insulin Today E66.9 - Obesity, unspecified, I10 - Essential (primary) hypertension, Z68.34 - Body mass index [BMI] 34.0-34.9, adult Hemoglobin A1c Today E66.9 - Obesity, unspecified, I10 - Essential (primary) hypertension, Z68.34 - Body mass index [BMI] 34.0-34.9, adult Complete Blood Count Auto Diff Today E66.9 - Obesity, unspecified, I10 - Essential (primary) hypertension, Z68.34 - Body mass index [BMI] 34.0-34.9, adult Lipid Panel Today E66.9 - Obesity, unspecified, I10 - Essential (primary) hypertension, Z68.34 - Body mass index [BMI] 34.0-34.9, adult IRON PROFILE Today E66.9 - Obesity, unspecified, I10 - Essential (primary) hypertension, Z68.34 - Body mass index [BMI] 34.0-34.9, adult Comprehensive Met. Panel Today E66.9 - Obesity, unspecified, I10 - Essential (primary) hypertension, Z68.34 - Body mass index [BMI] 34.0-34.9, adult Zinc Today E66.9 - Obesity, unspecified, I10 - Essential (primary) hypertension, Z68.34 - Body mass index [BMI] 34.0-34.9, adult TSH reflex Free T4 Today E66.9 - Obesity, unspecified, I10 - Essential (primary) hypertension, Z68.34 - Body mass index [BMI] 34.0-34.9, adult Ferritin Today E66.9 - Obesity, unspecified, I10 - Essential (primary) hypertension, Z68.34 - Body mass index [BMI] 34.0-34.9, adult XR chest 2V Today E66.9 - Obesity, unspecified, I10 - Essential (primary) hypertension, Z68.34 - Body mass index [BMI] 34.0-34.9, adult FL upper GI w air Today E66.9 - Obesity, unspecified, I10 - Essential (primary) hypertension, Z68.34 - Body mass index [BMI] 34.0-34.9, adult H Pylori Breath Test Today E66.9 - Obesity, unspecified, I10 - Essential (primary) hypertension, Z68.34 - Body mass index [BMI] 34.0-34.9, adult Vitamin B12 and Folate Today E66.9 - Obesity, unspecified, I10 - Essential (primary) hypertension, Z68.34 - Body mass index [BMI] 34.0-34.9, adult C Reactive Protein Today E66.9 - Obesity, unspecified, I10 - Essential (primary) hypertension, Z68.34 - Body mass index [BMI] 34.0-34.9, adult Vitamin B1 Today E66.9 - Obesity, unspecified, I10 - Essential (primary) hypertension, Z68.34 - Body mass index [BMI] 34.0-34.9, adult Vitamin A Today E66.9 - Obesity, unspecified, I10 - Essential (primary) hypertension, Z68.34 - Body mass index [BMI] 34.0-34.9, adult Vitamin D 25-OH Total Today E66.9 - Obesity, unspecified, I10 - Essential (primary) hypertension, Z68.34 - Body mass index [BMI] 34.0-34.9, adult US abdomen comp w elastography Today E66.9 - Obesity, unspecified, I10 - Essential (primary) hypertension, Z68.34 - Body mass index [BMI] 34.0-34.9, ad ult ECG 12 lead EKG Today E66.9 - Obesity, unspecified, I10 - Essential (primary) hypertension, Z68.34 - Body mass index [BMI] 34.0-34.9, adult Referrals Behavioral Health Referral E66.9 - Obesity, unspecified, I10 - Essential (primary) hypertension, Z68.34 - Body mass index [BMI] 34.0-34.9, adult Nutrition/Dietitian Referral E66.9 - Obesity, unspecified, I10 - Essential (primary) hypertension, Z68.34 - Body mass index [BMI] 34.0-34.9, adult
[2024-09-27 08:31] VITALS: BMI 34.6
== END 2024-09-27 09:01 | disposition home or self-care (01) ==
LOC: HO.HBS 08:05
PROVIDERS: PCP Internal Medicine; Visit Provider Surgery
DX: E66.811 Obesity, class 1 (principal); Z68.34 Body mass index [BMI] 34.0-34.9, adult
CPT/HCPCS: 99204

== ENCOUNTER 2024-09-28 08:41 | Day surgery (SDC) | payer OTHER, SELFPAY ==
--- NOTE | 2024-09-27 09:12 | HO.ANESPROP2 ---
Documented by User: Tabatha Sandhu NP 09/27/24 09:13 HPI - Anesthesia Eval Consult details Narrative: 49yo F for Colonoscopy PMFSH Active Problems Active Problems: All Active Problems BMI 34.0-34.9,adult (Acute) Obesity (Acute) Stress incontinence (Acute) Encounter for well woman exam with routine gynecological exam (Acute) Severe obesity with body mass index (BMI) of 36.0 to 36.9 with serious comorbidity (Acute) Physical exam (Acute) Insomnia (Acute) Pre-op examination (Acute) Essential hypertension (Acute) B12 deficiency (Acute) Hypovitaminosis D (Acute) Chronic GERD (Acute) IBS (irritable colon syndrome) (Acute) Anxiety (Acute) Dense breast tissue on mammogram (Acute) Past Medical History Medical History (Updated 09/27/24 @ 08:47 by Niraj De La Vega MD) Obesity Stress incontinence Physical exam Left sided sciatica Kidney stone Left flank pain Urinary frequency Weight loss Abnormal surgical wound Dysuria Right tennis elbow History of uterine fibroid Chest congestion Pernicious anemia At high risk for breast cancer Family history of breast cancer Encounter for pre-operative cardiovascular clearance Preop cardiovascular exam Preoperative clearance Physical exam BRCA negative Essential hypertension B12 deficiency Hypovitaminosis D Anxiety Chronic GERD Hypertension Family History Family History Mother Diabetes High blood pressure Breast cancer Cervical cancer Father Cancer Alzheimer disease Parkinsons disease Maternal Grandmother Breast cancer Surgical History Surgical History History of breast lift History of breast implant Hx of abdominoplasty History of mammogram History of removal of cyst History of tubal ligation Social History Social History Household Members: Family Housing: House Alcohol intake: former Patient Tobacco Use Status: Never used Tobacco e-Cigarette/Vaping Use: Never Used Second Hand Smoke Exposure: No Substance Use Type: Marijuana Advance Directives: No Advance Directives Information Provided: Yes service: No Current occupational status: employed Current occupational exposures/hazards: No Cognitive needs: No Hearing needs: No Vision needs: No Meds Allergies Allergy/AdvReac Type Severity Reaction Status Date / Time metronidazole [From Metrogel] Allergy Intermediate Rash Verified 09/28/24 09:14 Home Medications ?Medication ?Instructions ?Recorded ?Confirmed ?Last Taken ?Type levonorgestrel 21 mcg/24 hr (up to intrauterine 12/31/21 09/27/24 Unknown History 8 years) 52 mg intrauterine device (Mirena) Exam Narrative Narrative: ECHO 2021 Conclusions: - Normal left ventricular size, thickness, systolic function, and wall motion. The visually estimated ejection fraction is between 60-65%. Diastolic function is normal for age. - Normal right ventricular cavity size and systolic function. - There is mild mitral annular calcification. Assessment and Plan Assessment Anesthesia Assessment: Chart Reviewed Documented by User: Julisa Hernandez MD 09/28/24 09:16 [facility] Past Medical History Medical History (Updated 09/27/24 @ 08:47 by Niraj De La Vega MD) Obesity Stress incontinence Physical exam Left sided sciatica Kidney stone Left flank pain Urinary frequency Weight loss Abnormal surgical wound Dysuria Right tennis elbow History of uterine fibroid Chest congestion Pernicious anemia At high risk for breast cancer Family history of breast cancer Encounter for pre-operative cardiovascular clearance Preop cardiovascular exam Preoperative clearance Physical exam BRCA negative Essential hypertension B12 deficiency Hypovitaminosis D Anxiety Chronic GERD Hypertension Family History Family History Mother Diabetes High blood pressure Breast cancer Cervical cancer Father Cancer Alzheimer disease Parkinsons disease Maternal Grandmother Breast cancer Family history of problems with anesthesia: No Surgical History Surgical History History of breast lift History of breast implant Hx of abdominoplasty History of mammogram History of removal of cyst History of tubal ligation History of Problems with Anesthesia: No Social History Social History Household Members: Family Housing: House Alcohol intake: former Patient Tobacco Use Status: Never used Tobacco e-Cigarette/Vaping Use: Never Used Second Hand Smoke Exposure: No Substance Use Type: Marijuana Advance Directives: No Advance Directives Information Provided: Yes service: No Current occupational status: employed Current occupational exposures/hazards: No Cognitive needs: No Hearing needs: No Vision needs: No Meds Allergies Allergy/AdvReac Type Severity Reaction Status Date / Time metronidazole [From Metrogel] Allergy Intermediate Rash Verified 09/28/24 09:14 Home Medications ?Medication ?Instructions ?Recorded ?Confirmed ?Last Taken ?Type levonorgestrel 21 mcg/24 hr (up to intrauterine 12/31/21 09/27/24 Unknown History 8 years) 52 mg intrauterine device (Mirena) Exam Airway Mallampati Class: II TM Dist: >3cm Neck ROM: Full Heart: rrr Lungs: cta Assessment and Plan Assessment Anesthesia Assessment: Anesthesia Plan Discussed Final Anesthetic Review Family History of Problems with Anesthesia: No History of Problems with Anesthesia: No NPO: Yes ASA Class: II Final Preanesthetic Review: No Changes in Pt Med Stat, Meds/Allgs Chart Reviewed and Consent Obtained/Reviewed Patient Risk: Low Procedure Risk: Low Anesthetic Plan Anesthetic Plan: MAC: Disposition: Standard PACU
--- NOTE | 2024-09-28 09:20 | MHC.SHP ---
Pre-Procedural Eval Section A - 24 Hr Update-Section A only Date of Service: 09/28/24 Section B - Complete if H&P > 30 days Chief Complaint: Screening, IBS Relevant Family History (Specify if Yes): No Relevant Social History: None Present Medications: see Short Stay Collaborative assessment Medical History: Significant History (Left sided sciatica Kidney stone Left flank pain Urinary frequency Weight loss Abnormal surgical wound Dysuria IUD surveillance Right tennis elbow History of uterine fibroid Chest congestion Pernicious anemia At high risk for breast cancer Family history of breast cancer Encounter for pre-operative ) History of Previous Operations: Relevant previous surgery/procedure and date(s) (History of breast lift History of breast implant Hx of abdominoplasty History of mammogram History of removal of cyst History of tubal ligation) Allergies: Allergies Allergy/AdvReac Type Severity Reaction Status Date / Time metronidazole [From Metrogel] Allergy Intermediate Rash Verified 09/28/24 09:14 Review of Systems Sugical H&P ROS: Negative: Constitution, Cardiovascular, Respiratory and Gastrointestinal Exam Surgical H&P Exam: Normal: Heart, Normal: Lungs, Normal: Extremities and Normal: Abdomen Plan Diagnosis/Plan: Unchanged I have reviewed the history and physical and performed a pertinent physical examination on my patient. No changes have occurred unless specified. Time Spent With Patient Time: Total time managing care of this patient today ____ minutes.
[2024-09-28 09:21] VITALS: BP 155/107; PULSE 96; RESP 16; TEMP 37.1; O2SAT 96; BMI 34.6
[2024-09-28] MEDS: Lactated Ringers 1,000 ML 100 ML IVCONT (09:32)
[2024-09-28 10:41] VITALS: BP 142/91; PULSE 89; RESP 16; TEMP 36.7; O2SAT 96
--- NOTE | 2024-09-28 10:44 | P.OPN-COLO_ITS ---
Colonoscopy Operative Note Operative Note Date of Service: 09/28/24 Narrative: COLONOSCOPY TILL CECUM WITH BIOPSIES Pre-op diagnosis: Colon cancer screening (First colon), IBS. Post-op diagnosis:? Diverticulosis, hemorrhoids Endoscopist:? Gricel Green MD Anesthesia:?MAC Consent: Indications for the procedure and potential complications of bleeding, perforation, reaction to medications and missed diagnosis were discussed with the patient and informed consent was obtained. Instrument: Olympus PCF H 190 L variable stiffness pediatric colonoscope Monitoring: Vital signs and clinical assessment, intermittent blood pressure monitoring, continuous EKG monitoring, Pulse oximetry and Carbon Dioxide monitoring were done throughout the procedure. Please see anesthesia flowsheet. Colon withdrawl time was 21 minutes. Procedure: The patient was placed in the left lateral decubitis position and pre-procedure medications were administered. After a digital rectal examination of the ano-rectum, the video colonoscope was inserted into the rectum and advanced through the colon to the cecum. The colonoscope was slowly withdrawn in a retrograde panoramic fashion and the colon mucosa was carefully examined including a retroflexed view of the rectum. Findings and interventions are described below. Procedure Difficulty: Colon was long and tortuous and there was some loop formation Findings: Terminal Ileum: Not evaluated Cecum: Normal Ascending Colon: Normal Transverse Colon: Normal Descending Colon: Moderate diverticulosis Sigmoid Colon: Severe diverticulosis with luminal narrowing Rectum: Normal Ano-rectum: Moderate internal hemorrhoids Colon preparation: Good after copious irrigation. [place] Bowel Preparation Scale Right colon; 2 Transverse colon: 2 Left colon; 2 (0 = Unprepared colon segment with mucosa not seen due to solid stool that cannot be cleared. 1 = Portion of mucosa of the colon segment seen, but other areas of the colon segment not well seen due to staining, residual stool and/or opaque liquid. 2 = Minor amount of residual staining, small fragments of stool and/or opaque liquid, but mucosa of colon segment seen well. 3 = Entire mucosa of colon segment seen well with no residual staining, small fragments of stool or opaque liquid) Impression and Post Procedure Diagnosis: Colonoscopy Findings: No polyps were detected Random biopsies were obtained from right and left colon to check for microscopic colitis Moderate to severe diverticulosis seen in the left colon Moderate hemorrhoids on retroflexed exam. Plan: Pt has a FU appointment on 10/12/24 with Aimee Maloney NP. Repeat Colonoscopy in 10 years if colon biopsies are normal. Above findings were reviewed with the patient and relevant handouts were given and the discharge area.
[2024-09-28 10:56] VITALS: BP 142/99; PULSE 85; RESP 17; O2SAT 98
== END 2024-09-28 11:39 | disposition home or self-care (01) ==
PROVIDERS: PCP Internal Medicine; Visit Provider Internal Medicine Gastroenterology
PROC: 0DJD8ZZ Inspection of Lower Intestinal Tract, Via Natural or Artificial Opening Endoscopic (ICD-10-PCS; CPT 45378; principal; 2024-09-28 10:10)
DX: Z12.11 Encounter for screening for malignant neoplasm of colon (principal); K58.9 Irritable bowel syndrome, unspecified; K57.30 Diverticulosis of large intestine without perforation or abscess without bleeding; K64.8 Other hemorrhoids; K21.9 Gastro-esophageal reflux disease without esophagitis; I10 Essential (primary) hypertension; E55.9 Vitamin D deficiency, unspecified; D51.0 Vitamin B12 deficiency anemia due to intrinsic factor deficiency; N20.0 Calculus of kidney; M54.32 Sciatica, left side; R35.0 Frequency of micturition; Z80.3 Family history of malignant neoplasm of breast; Z79.899 Other long term (current) drug therapy; Z88.8 Allergy status to other drugs, medicaments and biological substances; Z98.890 Other specified postprocedural states
CPT/HCPCS: 45380; 88305; J2003; J2704

== ENCOUNTER → 2024-09-28 08:41 | Outpatient (BNV) | payer OTHER, SELFPAY | PROVIDERS: PCP Internal Medicine; Visit Provider Internal Medicine Gastroenterology | DX: Z12.11 Encounter for screening for malignant neoplasm of colon (principal); K58.9 Irritable bowel syndrome, unspecified; K57.90 Diverticulosis of intestine, part unspecified, without perforation or abscess without bleeding; K64.8 Other hemorrhoids | CPT/HCPCS: 45380 ==

== ENCOUNTER → 2024-10-03 09:10 | Outpatient (REF) | payer OTHER, SELFPAY ==
--- NOTE | ~2024-10-03 | XR_ITS ---
EXAMINATION: XR CHEST 2 VIEWS HISTORY: E66.9 - Obesity, unspecified COMPARISON: Comparison is made with the prior examination dated 04/07/2021. FINDINGS: PA and lateral views of the chest are submitted. The lungs are expanded and clear. There is no pleural effusion, pneumothorax, or pulmonary vascular congestion. The heart is normal in size. The bones are intact. XR/XR chest 2V IMPRESSION: No acute cardiopulmonary abnormality. Electronically signed by: Wilbert Miller MD 10/03/2024 03:08 PM EDT
--- NOTE | 2024-10-03 09:21 | ECG_ITS ---
Test Reason : e66.9 Blood Pressure : */* mmHG Vent. Rate : 75 BPM Atrial Rate : 75 BPM P-R Int : 156 ms QRS Dur : 100 ms QT Int : 400 ms P-R-T Axes : 57 51 -7 degrees QTcB Int : 446 ms Normal sinus rhythm Nonspecific T wave abnormality Abnormal ECG When compared with ECG of 07-Apr-2022 09:51, T wave inversion no longer evident in Lateral leads Referred By: Niraj De La Vega Electronically Signed By: NANO REYNOSO
[2024-10-03 09:39] LABS: MANUAL DIFF FLAG NO
[2024-10-03 10:54] LABS: Basophils Absolute Auto 0.1 X10*3/uL (0.0-0.2); Basophils Percent Auto 1.5 % (0-2); Eosinophils Absolute Auto 0.2 X10*3/uL (0.0-0.4); Eosinophils Percent Auto 2.3 % (0-4); Hemoglobin 14.9 g/dl (12.0-16.0); Imm Gran Abs Auto 0.03 X10*3/uL (0.00-0.03); Imm Gran Pct Auto 0.5 % (0.0-0.4); Lymphocytes Absolute Auto 1.8 X10*3/uL (1.2-4.9); Lymphocytes Percent Auto 27.5 % (20-40); Mean Corpuscular HGB Conc 34.7 g/dl (31.0-35.0); Mean Corpuscular Hemoglobin 27.3 pg (27.0-33.0); Mean Corpuscular Volume 78.8 fL (80.0-98.0); Mean Platelet Volume 9.9 fL (9.4-12.3); Monocytes Absolute Auto 0.4 X10*3/uL (0.1-1.2); Monocytes Percent Auto 6.5 % (2-11); Neutrophils Absolute Auto 4.1 x10*3/uL (2.0-8.3); Neutrophils Percent Auto 61.7 % (45-73); Platelet Count 422 X10*3/uL (160-400); Red Blood Count 5.46 X10*6/uL (4.20-5.50); Red Cell Distribution Width 13.2 % (11.0-16.0); White Blood Count 6.6 X10*3/uL (4.8-10.8)
[2024-10-03 11:03] LABS: Estimated Average Glucose 111 mg/dL; Hemoglobin A1C 140.3142 umol/L; Hemoglobin A1c % 5.5 % (<6.0)
[2024-10-03 12:02] LABS: Alanine Aminotransferase 65 U/L (0-31); Albumin Level 4.5 g/dL (3.5-5.0); Alkaline Phosphatase 72 U/L (39-117); Anion Gap 11 (12-20); Aspartate Amino Transferase 41 U/L (5-31); Bilirubin Total 0.6 mg/dL (0.0-1.0); Blood Urea Nitrogen 16 mg/dL (9-16); C Reactive Protein 0.84 mg/dL (< or = 0.50); Calcium 9.7 mg/dL (8.4-10.2); Carbon Dioxide 28 mmol/L (22-29); Chloride 104 mmol/L (96-108); Cholesterol 180 mg/dL (<200); Estimated Glomerular Filt Rate > 60; Glucose Random 97 mg/dL (60-115); HDL Cholesterol 31 mg/dL (>40); Iron 71 mcg/dL (30-160); LDL Cholesterol Calculated 134 mg/dL (<100); Percent Iron Saturation 20 % (15-50); Potassium 3.2 mmol/L (3.3-5.1); Sodium 140 mmol/L (135-145); Total Iron Binding Capacity 359 mcg/dL (228-428); Total Protein 8.2 g/dL (6.5-8.0); Triglycerides 76 mg/dL (<150); Unsaturated Iron Binding 288 ug/dL
[2024-10-03 12:14] LABS: Folate 7.1 ng/mL (> or = 4.0); Vitamin B12 499 pg/mL (200-900)
[2024-10-03 12:19] LABS: Ferritin 221 ng/mL (10-250); TSH reflex Free T4 1.41 uIU/mL (0.32-4.0); Vitamin D 25-OH Total 46.6 ng/mL (>30)
[2024-10-03 12:40] LABS: Insulin 12 uU/mL (2-29)
[2024-10-06 02:34] LABS: Zinc 88 mcg/dL (60-130)
== END ==
LOC: HO.CARD 09:10
PROVIDERS: PCP Internal Medicine; Visit Provider Surgery
DX: E66.9 Obesity, unspecified (principal); Z68.34 Body mass index [BMI] 34.0-34.9, adult; I10 Essential (primary) hypertension; Z13.1 Encounter for screening for diabetes mellitus
CPT/HCPCS: 36415; 71046; 80053; 80061; 82306; 82607; 82728; 82746; 83036; 83525; 83540; 84425; 84443; 84590; 84630; 85025; 86140; 93005

== ENCOUNTER → 2024-10-03 09:21 | Outpatient (BNV) | payer OTHER, SELFPAY | PROVIDERS: PCP Internal Medicine; Visit Provider Internal Medicine | DX: R94.31 Abnormal electrocardiogram [ECG] [EKG] (principal); E66.9 Obesity, unspecified | CPT/HCPCS: 93010 ==

== ENCOUNTER → 2024-10-03 09:39 | Outpatient (BNV) | payer OTHER, SELFPAY | PROVIDERS: PCP Internal Medicine; Visit Provider Radiology Diagnostic Radiology | DX: E66.9 Obesity, unspecified (principal) | CPT/HCPCS: 71046 ==

== ENCOUNTER 2024-10-26 10:22 | Day surgery (SDC) | payer OTHER, SELFPAY ==
--- NOTE | 2024-10-25 09:12 | P.CONAN_ITS ---
Documented by User: Tabatha Sandhu NP 10/25/24 09:13 HPI - Anesthesia Eval Consult details Narrative: 49yo F for Upper Endoscopy PMFSH Active Problems Active Problems: All Active Problems Abnormal EKG (Acute) Vitamin B1 deficiency (Acute) Hypokalemia (Acute) BMI 34.0-34.9,adult (Acute) Obesity (Acute) Stress incontinence (Acute) Encounter for well woman exam with routine gynecological exam (Acute) Severe obesity with body mass index (BMI) of 36.0 to 36.9 with serious comorbidity (Acute) Physical exam (Acute) Insomnia (Acute) Pre-op examination (Acute) Essential hypertension (Acute) B12 deficiency (Acute) Hypovitaminosis D (Acute) Chronic GERD (Acute) IBS (irritable colon syndrome) (Acute) Anxiety (Acute) Dense breast tissue on mammogram (Acute) Past Medical History Medical History (Updated 10/09/24 @ 19:38 by Niraj De La Vega MD) Obesity Stress incontinence Physical exam Left sided sciatica Kidney stone Left flank pain Urinary frequency Weight loss Abnormal surgical wound Dysuria Right tennis elbow History of uterine fibroid Chest congestion Pernicious anemia At high risk for breast cancer Family history of breast cancer Encounter for pre-operative cardiovascular clearance Preop cardiovascular exam Preoperative clearance Physical exam BRCA negative Essential hypertension B12 deficiency Hypovitaminosis D Anxiety Chronic GERD Hypertension Family History Family History Mother Diabetes High blood pressure Breast cancer Cervical cancer Father Cancer Alzheimer disease Parkinsons disease Maternal Grandmother Breast cancer Family history of problems with anesthesia: No Surgical History Surgical History History of breast lift History of breast implant Hx of abdominoplasty History of mammogram History of removal of cyst History of tubal ligation History of Problems with Anesthesia: No Social History Social History Household Members: Family Housing: House Are you a primary workforce investment act career manager to a significant other at home: No Do you presently have visiting nurse or other home services: No Alcohol intake: former Patient Tobacco Use Status: Never used Tobacco e-Cigarette/Vaping Use: Never Used Second Hand Smoke Exposure: No Substance Use Type: Marijuana Advance Directives: No Advance Directives Information Provided: Yes service: No Current occupational status: employed Current occupational exposures/hazards: No Cognitive needs: No Hearing needs: No Vision needs: No Meds Allergies Allergy/AdvReac Type Severity Reaction Status Date / Time metronidazole [From Metrogel] Allergy Intermediate Rash Verified 09/28/24 09:14 Home Medications ?Medication ?Instructions ?Recorded ?Confirmed ?Last Taken ?Type levonorgestrel 21 mcg/24 hr (up to intrauterine 12/31/21 09/27/24 09/01/22 History 8 years) 52 mg intrauterine device (Mirena) Assessment and Plan Assessment Anesthesia Assessment: Chart Reviewed Final Anesthetic Review Family History of Problems with Anesthesia: No History of Problems with Anesthesia: No Documented by User: Ad Dumont MD 10/26/24 12:29 [facility] Past Medical History Medical History (Updated 10/09/24 @ 19:38 by Niraj De La Vega MD) Obesity Stress incontinence Physical exam Left sided sciatica Kidney stone Left flank pain Urinary frequency Weight loss Abnormal surgical wound Dysuria Right tennis elbow History of uterine fibroid Chest congestion Pernicious anemia At high risk for breast cancer Family history of breast cancer Encounter for pre-operative cardiovascular clearance Preop cardiovascular exam Preoperative clearance Physical exam BRCA negative Essential hypertension B12 deficiency Hypovitaminosis D Anxiety Chronic GERD Hypertension Family History Family History Mother Diabetes High blood pressure Breast cancer Cervical cancer Father Cancer Alzheimer disease Parkinsons disease Maternal Grandmother Breast cancer Surgical History Surgical History History of breast lift History of breast implant Hx of abdominoplasty History of mammogram History of removal of cyst History of tubal ligation Social History Social History Household Members: Family Housing: House Are you a primary workforce investment act career manager to a significant other at home: No Do you presently have visiting nurse or other home services: No Alcohol intake: former Patient Tobacco Use Status: Never used Tobacco e-Cigarette/Vaping Use: Never Used Second Hand Smoke Exposure: No Substance Use Type: Marijuana Advance Directives: No Advance Directives Information Provided: Yes service: No Current occupational status: employed Current occupational exposures/hazards: No Cognitive needs: No Hearing needs: No Vision needs: No Meds Allergies Allergy/AdvReac Type Severity Reaction Status Date / Time metronidazole [From Metrogel] Allergy Intermediate Rash Verified 09/28/24 09:14 Home Medications ?Medication ?Instructions ?Recorded ?Confirmed ?Last Taken ?Type levonorgestrel 21 mcg/24 hr (up to intrauterine 12/31/21 09/27/24 09/01/22 History 8 years) 52 mg intrauterine device (Mirena) Exam Airway Mallampati Class: III TM Dist: >3cm Neck ROM: Full Assessment and Plan Assessment Anesthesia Assessment: Anesthesia Plan Discussed Final Anesthetic Review NPO: Yes ASA Class: III Final Preanesthetic Review: No Changes in Pt Med Stat, Meds/Allgs Chart Reviewed, Consent Obtained/Reviewed and Anes Risks/Benef Reviewed Patient Risk: Intermediate Procedure Risk: Low Anesthetic Plan Disposition: Standard PACU
[2024-10-26 10:47] VITALS: BMI 34.2
[2024-10-26 10:56] VITALS: BP 128/88; PULSE 95; RESP 18; TEMP 37; O2SAT 95
[2024-10-26] MEDS: Lactated Ringers 1,000 ML 100 ML IVCONT (11:20)
--- NOTE | 2024-10-26 11:30 | MHC.SHP ---
Pre-Procedural Eval Section A - 24 Hr Update-Section A only Date of Service: 10/26/24 The patient is an INPATIENT: No The patient has been examined within 24 hours of the surgical procedure. The History & Physical has been completed within 30 days and I have reviewed it.: Yes Section B - Complete if H&P > 30 days Chief Complaint: Morbid (severe) obesity due to excess calories Details of Present Illness: GERD Relevant Family History (Specify if Yes): No Relevant Social History: None Present Medications: None Medical History: No relevant PMH History of Previous Operations: No relevant previous surgery Allergies: Allergies Allergy/AdvReac Type Severity Reaction Status Date / Time metronidazole [From Metrogel] Allergy Intermediate Rash Verified 09/28/24 09:14 Review of Systems Sugical H&P ROS: Negative: Constitution, Cardiovascular, Respiratory, Neurological, Psychiatric, Hem-Onc, Allergic/Immunologic, Gastrointestinal, Genitourinary, Musculoskeletal, Integumentary, Endocrine and Eyes/Ears/Nose/Throat Exam Surgical H&P Exam: Normal: HEENT, Normal: Heart, Normal: Lungs, Normal: Extremities, Normal: Abdomen, Normal: Skin and Normal: Neurological Plan Diagnosis/Plan: Unchanged (EGD to assess etiology of GERD. Risks of bleeding and perforation were discussed with the patient and she is in agreement with the plan.) I have reviewed the history and physical and performed a pertinent physical examination on my patient. No changes have occurred unless specified. Time Spent With Patient Time: Total time managing care of this patient today ____ minutes.
--- NOTE | 2024-10-26 11:34 | PM.OP ---
Brief Operative Note Date of Service: 10/26/24 Pre-op diagnosis: GERD Post-op diagnosis: same (1) 3cm fixed diaphragmatic hernia, 2) esophagitis, 3) gastritis, 4) fundic polyps) Procedure: PROCEDURE DATE: 10/26/2024 PREOPERATIVE DIAGNOSIS: GERD POSTOPERATIVE DIAGNOSIS: ?Same as above. 1) 3cm fixed diaphragmatic hernia, 2) esophagitis, 3) gastritis, 4) fundic polyps PROCEDURE: [id number] with biopsies Surgeon: ?Luis De La Vega M.D.. Ph.D. Languages And Literature Instructor: None ? Anesthesia: IV sedation Estimated blood loss: ?Minimal FINDINGS AND PROCEDURE: ? OPERATIVE INDICATIONS: ?The patient is a 49 year old female known to me who is interested in bariatric surgery. The patient has GERD. Based on this information I recommended an upper endoscopy to evaluate the patient's symptoms. Risks and complications of the surgery were discussed with the patient in advance particularly the possibility of perforation or bleeding that may require surgical intervention. The patient understood the risks and was in agreement with the plan. ? PROCEDURE: After informed consent was obtained by the patient, the patient was ?transferred to the Operating Room and was placed in the supine position.? After successful induction of IV sedation, a mouth block was inserted and the patient was placed in the left lateral decubitus position. An upper endoscopy was performed next, the oropharynx and esophagus appeared within the normal limits. There was a 3cm fixed hiatal hernia. The z-line was irregular with tonguesof gastric mucosa protruding into the esophagus in 25% circumference.. Two biopsies were obtained from the distal esophagus 2-3 cm proximal to the GE junction and two additional biopsies from the GE junction. The stomach was entered and it appeared to be of normal size. There was mild gastritis at distal antrum. There was no stricture or ulcer. A biopsy was obtained from the gastric fundus and the antrum. No significant bleeding was noted from any of the biopsy sites. Retroflexion of the scope confirmed the presence of a small diaphragmatic hernia. The scope was then advanced into the duodenum which appeared to be normal as well. At that point the duodenum ?and the stomach were decompressed and the scope was withdrawn from the patient's mouth. The patient extubated and was transferred in stable condition to the Recovery Room for further care. I was present and performed all steps of the procedure. There were no residents to assist with this case. Luis De La Vega M.D., Ph.D. Surgeon: Niraj De La Vega MD Anesthesia: MAC Was an Languages And Literature Instructor used for this Procedure?: No Estimated blood loss (mL): 0 IV fluids (mL): 400 Urine output (mL): 0 (No Amanda to record output) Pathology: other (1) antrum x1, 2) fundus x1, 3) GE junction x2, 4) distal esophagus x2) Condition: stable Disposition: PACU
[2024-10-26 12:15] VITALS: BP 99/60; PULSE 90; RESP 12; TEMP 36.1; O2SAT 97
[2024-10-26 12:29] VITALS: BP 113/72; PULSE 83; RESP 16; O2SAT 97
[2024-10-26 12:45] VITALS: BP 124/82; PULSE 78; RESP 16; O2SAT 98
[2024-10-26 12:57] VITALS: BP 137/82; PULSE 79; RESP 16; TEMP 36.2; O2SAT 98
== END 2024-10-26 13:16 | disposition home or self-care (01) ==
PROVIDERS: PCP Internal Medicine; Visit Provider Surgery
PROC: 0DJ08ZZ Inspection of Upper Intestinal Tract, Via Natural or Artificial Opening Endoscopic (ICD-10-PCS; CPT 43235; principal; 2024-10-26 12:20)
DX: K21.9 Gastro-esophageal reflux disease without esophagitis (principal); E66.09 Other obesity due to excess calories; Z68.34 Body mass index [BMI] 34.0-34.9, adult; K29.50 Unspecified chronic gastritis without bleeding; K20.80 Other esophagitis without bleeding; K31.7 Polyp of stomach and duodenum; K44.9 Diaphragmatic hernia without obstruction or gangrene; I10 Essential (primary) hypertension; D51.0 Vitamin B12 deficiency anemia due to intrinsic factor deficiency; E55.9 Vitamin D deficiency, unspecified; F41.9 Anxiety disorder, unspecified; Z79.899 Other long term (current) drug therapy; Z88.8 Allergy status to other drugs, medicaments and biological substances; Z98.890 Other specified postprocedural states
CPT/HCPCS: 43239; 88305; 88313; 88342; J2003; J2704

== ENCOUNTER → 2024-10-26 10:22 | Outpatient (BNV) | payer OTHER, SELFPAY | PROVIDERS: PCP Internal Medicine; Visit Provider Surgery | DX: K21.00 Gastro-esophageal reflux disease with esophagitis, without bleeding (principal); K29.70 Gastritis, unspecified, without bleeding; K31.7 Polyp of stomach and duodenum | CPT/HCPCS: 43239 ==

== ENCOUNTER 2024-11-09 09:24 | Outpatient (AMB) | payer OTHER, SELFPAY ==
--- NOTE | 2024-11-09 09:05 | A.OFFWM_ITS ---
Intake Intake Visit Reasons: VIDEO BH Intake Allergies metronidazole [From Metrogel] Allergy (Intermediate, Verified 09/28/24 09:14) Rash [facility] Medical History (Updated 10/09/24 @ 19:38 by Niraj De La Vega MD) Obesity Stress incontinence Physical exam Left sided sciatica Kidney stone Left flank pain Urinary frequency Weight loss Abnormal surgical wound Dysuria Right tennis elbow History of uterine fibroid Chest congestion Pernicious anemia At high risk for breast cancer Family history of breast cancer Encounter for pre-operative cardiovascular clearance Preop cardiovascular exam Preoperative clearance Physical exam BRCA negative Essential hypertension B12 deficiency Hypovitaminosis D Anxiety Chronic GERD Hypertension Surgical History History of breast lift History of breast implant Hx of abdominoplasty History of mammogram History of removal of cyst History of tubal ligation Family History Mother Diabetes High blood pressure Breast cancer Cervical cancer Father Cancer Alzheimer disease Parkinsons disease Maternal Grandmother Breast cancer Social History Household Members: Family Housing: House Are you a primary career resource specialist to a significant other at home: No Do you presently have visiting nurse or other home services: No Alcohol intake: former Patient Tobacco Use Status: Never used Tobacco e-Cigarette/Vaping Use: Never Used Second Hand Smoke Exposure: No Substance Use Type: Marijuana service: No Current occupational status: employed Current occupational exposures/hazards: No Cognitive needs: No Hearing needs: No Vision needs: No Female Reproductive History Menstrual Age of Menarche: 14 Behavioral Health Assessment Weight Management Therapy Therapy Notes Details The patient is a 49-year-old female presenting for an initial visit to begin a behavioral health assessment as part of a surgical weight loss program. She was initially referred by her primary care provider, Dr. Dalton, following her last physical and a diagnosis of prediabetes. Presenting Concerns Referral Source P-Provider. Reason for referral Completion of behavioral health assessment as part of process for weight-loss surgery. Precipitating Event Obesity. Living Situation Current Living Situation Own At risk of losing current housing? No Satisfied with current living situation? Yes Comments PT lives with her fiance and her dog. Social History Family history and relationship PT has been in a relationship for about 15 years. PT has 2 adult boys Parents are . She has a big family, she has 15 siblings. Dad had 6 kids when she met her dad, and her mom had 4 kids when they met. After marrying they had 5 children. Parental/Familial senior process analyst obligations None. Developmental history and status None. Currently WNL Social support Partner, children, family in general. Community support Her PCP Catholic/Spirituality None Cultural/Ethnic information . Parents are from [place], she was born in [place]. Legal Involvement and History Current or historical involvement with the legal system? None. 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 ) Wants help to find employment? No Meaningful activities Watch TV, spending time/walking with her dog. No major hobbies. Financial Situation Describe current financial situation Comfortable Financial assistance? None Service Service? No Mental Health and Addiction Treatment Current/Past substance abuse? No Comments Alcohol: Socially. During holidays. 1drink Cigarettes/Tobacco: None Cannabis/Edibles: None. Current/Past addictive behavior concerns? No Psychiatric history PT attended counseling for a couple of months when her son got diagnosed with Autism to learn how to support him better. Currently, her PCP prescribes her Lorazepam 0.5mg for anxiety. PT denies ever being in crisis or inpatient for mental health. There is no history and/or current concern about SI/SA and self-harm or other harm. Medical and Physical Health Summary Additional Medical History not covered in history High blood pressure. Sexual History concerns None reported. Physical exam in the last year? Yes Pain Screening Current pain? No Pain in the last few months? No Medications Is the patient compliant with medications? Yes Does the patient have Quiros Guardian in place? Not applicable Does the patient use complimentary health approaches? No Trauma/Abuse History History of trauma? No Questionnaires PHQ-9 Over the last 2 weeks, how often have you been bothered by any of the following problems? 1. Little interest or pleasure in doing things: several days 2. Feeling down, depressed, or hopeless: not at all 3. Trouble falling or staying asleep, or sleeping too much: nearly every day 4. Feeling tired or having little energy: nearly every day 5. Poor appetite or overeating: more than half the days 6. Feeling bad about yourself - or that you are a failure or have let yourself or your family down: not at all 7. Trouble concentrating on things, such as reading the newspaper or watching television: several days 8. Moving or speaking so slowly that other people could have noticed. Or the opposite - being so fidgety or restless that you have been moving around a lot more than usual: several days 9. Thoughts that you would be better off or of hurting yourself in some way: not at all Total score: 11 Depression Screening Interpretation: Positive (From new PT pack. ) Depression Screening Done: Yes Source: Developed by Drs. Wilbert Schrader, Larissa Allen, Wing Ramírez and colleagues, with an educational ifeoma from [employer]. Assessment & Plan Assessment & Plan (1) Anxiety: Code(s): F41.9 - Anxiety disorder, unspecified (2) Pre-bariatric surgery psychological evaluation: Code(s): Z71.89 - Other specified counseling Plan The patient is not yet cleared, as the behavioral health assessment is still in progress. She will return in 2 weeks to continue the evaluation. At the next visit, the Binge Eating Scale (BES) will be reviewed, and a new PHQ-9 will be administered. Next dameon: 11/23/2024 at 9am, Video Telehealth Telehealth Telehealth Platform: [employer] Location of provider rendering services: other Location of patient: address on file Patient Identification confirmed using: Name, : Yes Telehealth method: video Patient verbally consented to treatment: Yes Patient verbally consented to billing insurance company: Yes Patient informed of any privacy concerns related to visit: Yes Minutes spent on Phone/Video with Pt.: 50 Coding Level of Care Code New Pt Tele Psy Diag Eval (79001) Patient Type New Diagnoses Anxiety F41.9 Pre-bariatric surgery psychological evaluation Z71.89 Time Spent (min) 55
== END 2024-11-09 10:07 | disposition home or self-care (01) ==
LOC: HO.HBST 09:24
PROVIDERS: PCP Internal Medicine; Visit Provider Counselor Mental Health
DX: F41.9 Anxiety disorder, unspecified (principal); Z71.89 Other specified counseling
CPT/HCPCS: 90791

== ENCOUNTER 2024-11-19 07:53 | Outpatient (REF) | payer OTHER, SELFPAY ==
--- NOTE | ~2024-11-19 | US_ITS ---
EXAMINATION: US ABDOMEN COMPLETE WITH LIVER ELASTOGRAPHY HISTORY: E66.9 - Obesity, unspecified TECHNIQUE: Real-time grayscale ultrasound imaging of the abdomen was performed and images were reviewed. COMPARISON: There are no prior studies for comparison. FINDINGS: Liver: The right lobe of the liver measures 15.3 cm in size. The left lobe of the liver measures 10.1 cm in size. The liver demonstrates normal homogeneous echotexture. No focal mass or intrahepatic biliary ductal dilatation is identified. There is normal hepatopedal flow in the portal vein. Ultrasound elastography of the liver was performed with 10 separate measurements of the liver parenchyma with the patient in the supine position. Measurements were obtained approximately 2 cm below Asael's capsule and perpendicular to the capsule. Images are of satisfactory quality. The median shear wave velocity is 1.72 m/s. The interquartile range/median (IQR/median) is 0.10. Gallbladder and biliary tree: Multiple shadowing calculi are noted in the gallbladder. There is no wall thickening or pericholecystic fluid. There is no sonographic Tejeda sign. The common bile duct is normal in caliber measuring 4 mm. Kidneys: The right kidney measures 11.4 cm in length. The left kidney measures 11.4 cm in length. The kidneys are unremarkable, without evidence of masses, hydronephrosis, or calculi. Pancreas: The pancreatic head, neck, and body are unremarkable. The pancreatic tail is obscured by bowel gas. Spleen: The spleen is normal in size and contour, measuring 11.0 cm in length. Abdominal aorta and inferior vena cava: The visualized portions of the abdominal aorta and inferior vena cava are normal in caliber. There is no free fluid in the abdomen. US/US abdomen comp w elastography IMPRESSION: Cholelithiasis. The median shear wave velocity in the liver is 1.72 m/s, corresponding to a median liver stiffness of 9.39 kPa. The IQR/median value is 0.10. This is indicative of a quality data set. Findings are indicative of a high elastography value suggestive of compensated advanced chronic liver disease. REFERENCE: Society of Radiologists in Ultrasound Liver Stiffness Thresholds (2020): LIVER STIFFNESS THRESHOLDS: *Shear wave velocity less than 1.3 m/s (Liver Stiffness equal or less than 5 kPa): High probability of being normal. *Shear wave velocity less than 1.7 m/s (Liver Stiffness less than 9 kPa): In the absence of other known clinical signs, rules out compensated advanced chronic liver disease. *Shear wave velocity between 1.7-2.1 m/s (Liver Stiffness 9-13 kPa): Suggestive of compensated advanced chronic liver disease but need further test for confirmation. *Shear wave velocity between 2.1-2.4 m/s (Liver Stiffness 13-17 kPa): Rules in compensated advanced chronic liver disease. *Shear wave velocity greater than 2.4 m/s (Liver Stiffness over 17 kPa): Suggestive of clinically significant portal hypertension. QUALITY OF DATA SET: *IQR/Median value equal or less than 0.15 implies a quality data set. *IQR/Median value over 0.15 implies a poor quality data set. SIGNIFICANT CHANGE FROM PRIOR EXAM: Significant change if liver stiffness measurement is 10% or greater from prior exam. OTHER CONSIDERATIONS: The stage of liver fibrosis may be overestimated in the setting of acute hepatitis, liver inflammation, elevated liver function tests, hepatic vascular congestion, obstructive cholestasis, non-fasting state, and infiltrative diseases such as amyloidosis and lymphoma. In some patients with NAFLD, the liver stiffness thresholds for compensated advanced chronic liver disease may be lower. In causes other than viral hepatitis and NAFLD, liver stiffness thresholds are not well established. Electronically signed by: Wilbert Miller MD 11/19/2024 09:03 AM EDT
== END 2024-11-19 07:54 | disposition home or self-care (01) ==
LOC: HO.US 07:53
PROVIDERS: PCP Internal Medicine; Visit Provider Surgery
DX: I10 Essential (primary) hypertension (principal); E66.9 Obesity, unspecified; Z68.34 Body mass index [BMI] 34.0-34.9, adult
CPT/HCPCS: 76700; 76981

== ENCOUNTER → 2024-11-19 07:55 | Outpatient (BNV) | payer OTHER, SELFPAY | PROVIDERS: PCP Internal Medicine; Visit Provider Radiology Diagnostic Radiology | DX: K80.20 Calculus of gallbladder without cholecystitis without obstruction (principal) | CPT/HCPCS: 76700; 76981 ==

== ENCOUNTER 2024-11-23 09:22 | Outpatient (AMB) | payer OTHER, SELFPAY ==
--- NOTE | 2024-11-23 09:15 | A.OFFWM_ITS ---
Intake Intake Visit Reasons: VIDEO BH Intake Part 2 Allergies metronidazole [From Metrogel] Allergy (Intermediate, Verified 09/28/24 09:14) Rash [facility] Medical History (Updated 10/09/24 @ 19:38 by Niraj De La Vega MD) Obesity Stress incontinence Physical exam Left sided sciatica Kidney stone Left flank pain Urinary frequency Weight loss Abnormal surgical wound Dysuria Right tennis elbow History of uterine fibroid Chest congestion Pernicious anemia At high risk for breast cancer Family history of breast cancer Encounter for pre-operative cardiovascular clearance Preop cardiovascular exam Preoperative clearance Physical exam BRCA negative Essential hypertension B12 deficiency Hypovitaminosis D Anxiety Chronic GERD Hypertension Surgical History History of breast lift History of breast implant Hx of abdominoplasty History of mammogram History of removal of cyst History of tubal ligation Family History Mother Diabetes High blood pressure Breast cancer Cervical cancer Father Cancer Alzheimer disease Parkinsons disease Maternal Grandmother Breast cancer Social History Household Members: Family Housing: House Are you a primary personal care service provider to a significant other at home: No Do you presently have visiting nurse or other home services: No Alcohol intake: former Patient Tobacco Use Status: Never used Tobacco e-Cigarette/Vaping Use: Never Used Second Hand Smoke Exposure: No Substance Use Type: Marijuana service: No Current occupational status: employed Current occupational exposures/hazards: No Cognitive needs: No Hearing needs: No Vision needs: No Female Reproductive History Menstrual Age of Menarche: 14 Behavioral Health Assessment Weight Management Therapy Therapy Notes Details The patient is a 49-year-old female presenting for a second visit to begin a behavioral health assessment as part of a surgical weight loss program. She was initially referred by her primary care provider, Dr. Dalton, following her last physical and a diagnosis of prediabetes. Presenting Concerns Referral Source [facility]-Provider. Reason for referral Completion of behavioral health assessment as part of process for weight-loss surgery. Precipitating Event Obesity. Living Situation Current Living Situation Own At risk of losing current housing? No Satisfied with current living situation? Yes Comments PT lives with her fiance and her dog. Food/Weight/Diet Expectations of change PT started the program on 09/27/2024 at 186 lbs. Her initial goal was to lose 10% of her weight before surgery, which is about 18 lbs. Her ultimate weight goal was 168 lbs before surgery. Most recent weight was 174 lbs as of 11/18/2024. Patient would like to ideally be 125-130Lbs. PT is implementing the following: Current meal plan: Protein bars and 1 meal per day. Exercise plan: Scale: Yes. Communication with provider: Yes on Sundays. History/Relationship with food Oveating carbs, South [place] style. Example of meals before starting the program: Breakfast: Lunch: Dinner: Snacks: Drinks/Liquids: History/Relationship with weight Denies being overweight in childhood. In HS, she was around 89 lbs. Major weight issues have been in the last 10-15 years. In the last 10 years, the patient's Lowest weight was 176 lbs. and the highest 195 lbs. History/Relationship with dieting WW, Herbalife (Lost substantial weight and got to 129 Lbs), OTC pills. Social History Family history and relationship PT has been in a relationship for about 15 years. PT has 2 adult boys Parents are . She has a big family, she has 15 siblings. Dad had 6 kids when she met her dad, and her mom had 4 kids when they met. After marrying they had 5 children. Parental/Familial bath steward/stewardess obligations None. Developmental history and status None. Currently WNL Social support Partner, children, family in general. Community support Her PCP Oriental Orthodox/Spirituality None Cultural/Ethnic information . Parents are from [place], she was born in [place]. Legal Involvement and History Current or historical involvement with the legal system? None. 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 Employment Employment Status [employer] ([employer]. ) Wants help to find employment? No Meaningful activities Watch TV, spending time/walking with her dog. No major hobbies. Financial Situation Describe current financial situation Comfortable Financial assistance? None Service Service? No Mental Health and Addiction Treatment Current/Past substance abuse? No Comments Alcohol: Socially. During holidays. 1drink Cigarettes/Tobacco: None Cannabis/Edibles: None. Current/Past addictive behavior concerns? 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 Treated by her PCP. PT attended counseling for a couple of months when her son got diagnosed with Autism to learn how to support him better. Currently, her PCP prescribes her Lorazepam 0.5mg for anxiety as needed. She gets anxious when traveling long distances in a car (not having control of the vehicle, gets stomach aches) and when around too many new people. PT denies ever being in crisis or inpatient for mental health. There is no history and/or current concern about SI/SA and self-harm or other harm. Medical and Physical Health Summary Additional Medical History not covered in history High blood pressure. Sexual History concerns None reported. Physical exam in the last year? Yes Pain Screening Current pain? No Pain in the last few months? No Medications Is the patient compliant with medications? Yes Does the patient have Quiros Guardian in place? Not applicable Does the patient use complimentary health approaches? No Trauma/Abuse History History of trauma? No Assessment & Plan Assessment & Plan (1) Anxiety: Code(s): F41.9 - Anxiety disorder, unspecified (2) Pre-bariatric surgery psychological evaluation: Code(s): Z71.89 - Other specified counseling Plan PT will return next week to finish assessment and do a new PHQ-9, also BES will be reviewed. Next dameon: 11/30/2024 at 2:30pm, (30min) Telehealth Telehealth [facility] Location of provider rendering services: other Location of patient: other ([facility]) Patient Identification confirmed using: Name, : Yes Telehealth method: video Patient verbally consented to treatment: Yes Patient verbally consented to billing insurance company: Yes Patient informed of any privacy concerns related to visit: Yes Minutes spent on Phone/Video with Pt.: 45 Coding Level of Care Code Established Pt Tele Psytx 45 mins ([id number]) Patient Type Established Diagnoses Anxiety F41.9 Pre-bariatric surgery psychological evaluation Z71.89 Time Spent (min) 45
== END 2024-11-23 10:17 | disposition home or self-care (01) ==
LOC: HO.HBST 09:22
PROVIDERS: PCP Internal Medicine; Visit Provider Counselor Mental Health
DX: F41.9 Anxiety disorder, unspecified (principal); Z71.89 Other specified counseling
CPT/HCPCS: 90834

== ENCOUNTER → 2024-11-27 10:55 | Outpatient (REF) | payer OTHER, SELFPAY ==
--- NOTE | 2024-11-27 10:59 | CA_ITS ---
Acquisition Time: 2024-11-27 11:05:52 Total Exercise Time: 00:06:15 Test Indications: ABN EKG Medications: SEE H&P Protocol: ANNE Max HR: 164 BPM 95% of Pred: 172 BPM Max BP: 154/84 mmHG Max Work Load: 7.2 METS Exercise stress test with exercise 6 mins 15 secs of Anne Protocol, achieving 92% MPHR, with reports of mild SOB, no chest pain, with isolated PVCs, with normotensive repsonse to exercise. Nondiagnostic EKG for ischemia due to baseline ST- T wave abnormalities. In recovery, breathing returned to baseline. Echo imges obtained by [place] at rest and post peak exercise. Definity contrast utilized. Test reviewed with . Referred By: Niraj De La Vega Electronically Signed By: Vu Peterson
== END ==
LOC: HO.CARD 10:55
PROVIDERS: PCP Internal Medicine; Visit Provider Surgery
DX: R94.31 Abnormal electrocardiogram [ECG] [EKG] (principal)
CPT/HCPCS: 93350; Q9957

== ENCOUNTER → 2024-11-27 10:59 | Outpatient (BNV) | payer OTHER, SELFPAY | PROVIDERS: PCP Internal Medicine | DX: R06.02 Shortness of breath (principal); R94.31 Abnormal electrocardiogram [ECG] [EKG] | CPT/HCPCS: 93016; 93018; 93350; 93352 ==

== ENCOUNTER 2024-11-30 14:41 | Outpatient (AMB) | payer OTHER, SELFPAY ==
--- NOTE | 2024-11-30 14:30 | MHC.WMTHER ---
Intake Intake Visit Reasons: VIDEO F/U *OKAY PER W.L* Allergies metronidazole [From Metrogel] Allergy (Intermediate, Verified 09/28/24 09:14) Rash [facility] Medical History (Updated 10/09/24 @ 19:38 by Niraj De La Vega MD) Obesity Stress incontinence Physical exam Left sided sciatica Kidney stone Left flank pain Urinary frequency Weight loss Abnormal surgical wound Dysuria Right tennis elbow History of uterine fibroid Chest congestion Pernicious anemia At high risk for breast cancer Family history of breast cancer Encounter for pre-operative cardiovascular clearance Preop cardiovascular exam Preoperative clearance Physical exam BRCA negative Essential hypertension B12 deficiency Hypovitaminosis D Anxiety Chronic GERD Hypertension Surgical History History of breast lift History of breast implant Hx of abdominoplasty History of mammogram History of removal of cyst History of tubal ligation Family History Mother Diabetes High blood pressure Breast cancer Cervical cancer Father Cancer Alzheimer disease Parkinsons disease Maternal Grandmother Breast cancer Social History Household Members: Family Housing: House Are you a primary health care recruiter to a significant other at home: No Do you presently have visiting nurse or other home services: No Alcohol intake: former Patient Tobacco Use Status: Never used Tobacco e-Cigarette/Vaping Use: Never Used Second Hand Smoke Exposure: No Substance Use Type: Marijuana service: No Current occupational status: employed Current occupational exposures/hazards: No Cognitive needs: No Hearing needs: No Vision needs: No Female Reproductive History Menstrual Age of Menarche: 14 Behavioral Health Assessment Weight Management Therapy Therapy Notes Details The patient is a 49-year-old female presenting for a second visit to continue the behavioral health assessment as part of the surgical weight loss program. She was initially referred by her primary care provider, Dr. Dalton, following her most recent physical exam and a diagnosis of prediabetes. Her mental health history includes depression after her second , which was treated by her PCP. She also briefly engaged in counseling to better support her son following his Autism diagnosis. She is currently prescribed Lorazepam 0.5 mg as needed for situational anxiety, primarily related to long-distance travel and crowded or unfamiliar environments. She denies any history of psychiatric hospitalization, mental health crises, suicidal ideation, self-harm, or harm to others. No history of substance use is reported. There is no indication of stress- or emotional-eating behaviors. Binge Eating Scale (BES) scores indicate a some risk for binge eating behavior, however when explored deeper these results reflect inappropriate eating habits, and PHQ-9 results show no current symptoms of depression. The mental status examination is within normal limits, indicating no impairment in cognitive or emotional functioning. At this time, the patient is deemed psychologically appropriate to proceed and is cleared from a behavioral health standpoint. Presenting Concerns Referral Source WMP-Provider. Reason for referral Completion of behavioral health assessment as part of process for weight-loss surgery. Precipitating Event Obesity. Living Situation Current Living Situation Own At risk of losing current housing? No Satisfied with current living situation? Yes Comments PT lives with her fiance and her dog. Food/Weight/Diet Expectations of change PT started the program on 09/27/2024 at 186 lbs. Her initial goal was to lose 10% of her weight before surgery, which is about 18 lbs. Her ultimate weight goal was 168 lbs before surgery. Most recent weight was 174 lbs as of 11/18/2024. Patient would like to ideally be 125-130Lbs. PT is implementing the following: Current meal plan: Protein bars and 1 meal per day. Exercise plan: Scale: Yes. Communication with provider: Yes on Sundays. History/Relationship with food Overeating carbs, [place] style. At times, she would skip lunch if busy at work, so then by 3pm she would be very hungry and would grab a bar of chocolate. Example of meals before starting the program: Breakfast: M-F Le[employer] (hot cakes w/w/sausage and soda), Starbucks (large frozen coffee, breakfast sandwich), Dragan (frozen coffee), Jaleesa[employer] (potato wedges) or [employer] (breakfast sandwich w/w/frozen lemonade or soda). On weekends at home, mostly (breakfast sandwich bagel and coffee). Lunch: M-F. @work - Hamburger, pizza, or a bag of chips with 20oz soda. Dinner: [place] food. Rice/beans/porkchops or chicken wings. Take out 2-3 times a week, including weekends. Snacks: candy, chips, pretzels. Always have snacks in her office. Drinks/Liquids: History/Relationship with weight Denies being overweight in childhood. In HS, she was around 89 lbs. Major weight issues have been in the last 10-15 years. In the last 10 years, the patient's Lowest weight was 176 lbs. and the highest 195 lbs. History/Relationship with dieting WW, Herbalife (Lost substantial weight and got to 129 Lbs), OTC pills. Binge Eating Do you frequently eat large amounts of food in short periods of time, not feeling physically hungry? No Do you feel out of control when you eat a large amount of food in a short period of time? Yes Do you eat large amounts of food rapidly and typically alone? No Night Eating Do you wake up at least once during the night to eat? No If you wake up in the night, do you find that it is necessary to eat something in order to fall back asleep? No Do you have little or no appetite in the morning and feel very hungry in the evening, often overeating between dinner and when you go to bed? No Social History Family history and relationship PT has been in a relationship for about 15 years. PT has 2 adult boys Parents are . She has a big family, she has 15 siblings. Dad had 6 kids when she met her dad, and her mom had 4 kids when they met. After marrying they had 5 children. Parental/Familial director search obligations None. Developmental history and status None. Currently WNL Social support Partner, children, family in general. Community support Her PCP Faith/Spirituality None Cultural/Ethnic information . Parents are from [place], she was born in [place]. Legal Involvement and History Current or historical involvement with the legal system? None. 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 ) Wants help to find employment? No Meaningful activities Watch TV, spending time/walking with her dog. No major hobbies. Financial Situation Describe current financial situation Comfortable Financial assistance? None Service Service? No Mental Health and Addiction Treatment Current/Past substance abuse? No Comments Alcohol: Socially. During holidays. 1drink Cigarettes/Tobacco: None Cannabis/Edibles: None. Current/Past addictive behavior concerns? No Psychiatric history The patient reports a history of depression following her second , which was managed by her primary care provider. She also engaged in counseling for a few months after her son was diagnosed with Autism, primarily to better understand how to support his needs. Currently, her primary care provider prescribes Lorazepam 0.5 mg on an as-needed basis to manage situational anxiety. She experiences anxiety particularly when traveling long distances as a passenger?reporting a lack of control and associated physical symptoms such as stomach discomfort?as well as in social situations involving large groups or unfamiliar people. The patient denies any history of psychiatric crisis or inpatient mental health treatment. She also denies any current or past suicidal ideation (SI), suicide attempts (SA), self-harm behaviors, or thoughts of harm toward others. Medical and Physical Health Summary Additional Medical History not covered in history High blood pressure. Sexual History concerns None reported. Physical exam in the last year? Yes Pain Screening Current pain? No Pain in the last few months? No Medications Is the patient compliant with medications? Yes Does the patient have Quiros Guardian in place? Not applicable Does the patient use complimentary health approaches? No Trauma/Abuse History History of trauma? No Questionnaires PHQ-9 Over the last 2 weeks, how often have you been bothered by any of the following problems? 1. Little interest or pleasure in doing things: not at all 2. Feeling down, depressed, or hopeless: not at all 3. Trouble falling or staying asleep, or sleeping too much: not at all 4. Feeling tired or having little energy: not at all 5. Poor appetite or overeating: not at all 6. Feeling bad about yourself - or that you are a failure or have let yourself or your family down: not at all 7. Trouble concentrating on things, such as reading the newspaper or watching television: not at all 8. Moving or speaking so slowly that other people could have noticed. Or the opposite - being so fidgety or restless that you have been moving around a lot more than usual: not at all 9. Thoughts that you would be better off or of hurting yourself in some way: not at all Total score: 0 Depression Screening Interpretation: Negative Depression Screening Done: Yes 36852 - PHQ-9 Billing: Yes Source: Developed by Drs. Wilbert Schrader, Larissa Allen, Wing Ramírez and colleagues, with an educational ifeoma from [employer]. Binge Eating Scale Group 1 A. I don't feel self-conscious about my wt. or body size when I'm with others. B. I feel concerned about how I look to others, but it normally does not make me fell disappointed with myself C. I do get self-conscious about my appearance and wt. which makes me feel disappointed in myself. D. I feel very self-conscious about my wt. and frequently I feel intense shame and disgust for myself. I try to avoid social contacts because of my self-consciousness. Response Group 1: C Group 2 A. I don't have any difficulty eating slowly in the proper manner. B. Although I seem to gobble down foods, I don't end up feeling stuffed because of eating to much. C. At times, I tend to eat quickly and then, I feel uncomfortably full afterwards. D. I have the habit of bolting down my food, without really chewing it. When this happens I usually feel uncomfortably stuffed because I've eaten to much. Response Group 2: C Group 3 A. I feel capable to control my eating urges when I want to. B. I feel like I have failed to control my eating more than the average person. C. I feel utterly helpless when it comes to feeling in control of my eating urges. D. Because I feel so helpless about controlling my eating I have become very desperate about trying to get control. Response Group 3: B Group 4 A. I don't have the habit of eating when I'm bored. B. I sometimes eat when I'm bored, but often I'm able to get busy and get my mind off food. C. I have a regular habit of eating when I'm bored, but occasionally, I can use some other activity to get my mind off eating. D. I have a strong habit of eating when I'm bored. Nothing seems to help me breath the habit. Response Group 4: D Group 5 A. I'm usually physically hungry when I eat something. B. Occasionally, I eat something on impulse even though I really am not hungry. C. I have the regular habit of eating foods, that I might not really enjoy, to satisfy a hungry feeling even though physically, I don't need the food. D. Although I'm not physically hungry, I get a hungry feeling in my mouth that only seems to be satisfied when I eat a food, like sandwich, that fills my mouth. Sometimes, when I eat the food to satisfy my mouth hunger, I then spit the food out so I won't gain weight. Response Group 5: B Group 6 A. I don't feel any guilt or self-hate after I overeat. B. After I overeat, occasionally I feel guilt or self-hate. C. Almost all the time I experience strong guilt or self-hate after I overeat. Response Group 6: B Group 7 A. I don't lose total control of my eating when dieting even after periods when I overeat. B. Sometimes when I eat a forbidden food on a diet, I feel like I blew it and eat even more. C. Frequently, I have the habit of saying to myself, I've blown it now, why not go all the way, when I overeat on a diet. When that happens I eat more. D. I have a regular habit of starting a strict diets for myself but I break the diets by going on an eating binge. My life seems to be either a feast or famine. Response Group 7: D Group 8 A. I rarely eat so much food that I feel uncomfortably stuffed afterwards. B. Usually about once a month, I each such a quantity of food, I end up feeling very stuffed. C. I have regular periods during the month when I eat large amounts of food, either at mealtime or at snacks. D. I eat so much food that I regularly feel quite uncomfortable after eating and sometimes a bit nauseous. Response Group 8: C Group 9 A. My level of calorie intake does not go up very high or go down very low on a regular basis. B. Sometimes after I overeat, I will try to reduce my caloric intake to almost nothing to compensate for the excess calories I've eaten. C. I have a regular habit of overeating during the night. It seems that my routine is not to be hungry in the morning but overeat in the evening. D. In my adult years, I have had week-long periods where I practically starve myself. This follows periods when I overeat. It seems I live a life of either feast or famine. Response Group 9: C Group 10 A. I usually am able to stop eating when I want to. I know when enough is enough. B. Every so often, I experience a compulsion to eat which I can't seem to control. C. Frequently, I experience strong urges to eat which I seem unable to control, but at other times I can control my eating urges. D. I feel incapable of controlling urges to eat. I have a fear of not being able to stop eating voluntarily. Response Group 10: C Group 11 A. I don't have any problem stopping eating when I feel full. B. I usually can stop eating when I feel full but occasionally overeat leaving me feeling uncomfortably stuffed. C. I have a problem stopping eating once I start and usually I feel uncomfortably stuffed after I eat a meal. D. Because I have a problem not being able to stop eating when I want, I sometimes have to induce vomiting to relieve my stuffed feeling. Response Group 11: B Group 12 A. I seem to eat just as much when I'm with others, Family social gatherings as when I'm by myself. B. Sometimes, when I'm with other persons, I don't eat as much as I want to eat because I'm self-conscious about my eating. C. Frequently, I eat only a small amount of food when others are present, because I'm very embarrassed about my eating. D. I feel so ashamed about overeating that I pick times to overeat when I know no one will see me. I feel like a closet eater. Response Group 12: B Group 13 A. I eat three meals a day with only an occasional between meal snack. B. I eat 3 meals a day, but I also normally snack between meals. C. When I am snacking heavily, I get in the habit of skipping regular meals. D. There are regular periods when I seem to be continually eating, with no planned meals. Response Group 13: C Group 14 A. I don't think much about trying to control unwanted eating urges. B. At least some of the time, I feel my thoughts are pre-occupied with trying to control my eating urges. C. I feel that frequently I spend much time thinking about how much I ate or about trying not to eat anymore. D. It seems to me that most of my waking hours are pre-occupied by thoughts about eating or not eating. I feel like I'm constantly struggling not to eat. Response Group 14: D Group 15 A. I don't think about food a great deal. B. I have strong craving for food but they last only for brief periods of time. C. I have days when I can't seem to think about anything else but food. D. Most of my days seem to be pre-occupied with thoughts about food. I feel like I live to eat. Response Group 15: B Group 16 A. I usually know whether or not I'm physically hungry. I take the right portion of food to satisfy me. B. Occasionally, I feel uncertain about knowing whether or not I'm physically hungry. A these times it's hard to know how much food I should take to satisfy me. C. Even though I might know how many calories I should eat, I don't have any idea what is a normal amount of food for me. Response Group 16: A Binge Eating Score: 27 Score less than 17 Minimal Risk Score between 18-26 Moderate Risk Score between 27-46 High Risk Assessment & Plan Assessment & Plan (1) Anxiety: Code(s): F41.9 - Anxiety disorder, unspecified (2) Pre-bariatric surgery psychological evaluation: Code(s): Z71.89 - Other specified counseling Plan From a behavioral health standpoint, the patient is cleared to proceed and may be submitted for surgery when clinically appropriate. A post-operative follow-up is recommended within 1 to 3 weeks after surgery to monitor psychological adjustment, assess ongoing needs, and support continued progress. Next dameon: 1-3 weeks PO. Telehealth Telehealth Telehealth Platform: Dox[employer] Location of provider rendering services: other (Home office. [place], [place]) Location of patient: other (Work. [place], [place]) Patient Identification confirmed using: Name, : Yes Telehealth method: video Patient verbally consented to treatment: Yes Patient verbally consented to billing insurance company: Yes Patient informed of any privacy concerns related to visit: Yes Minutes spent on Phone/Video with Pt.: 40 Coding Level of Care Code Tele Psytx 45 mins (60989) Diagnoses Anxiety F41.9 Pre-bariatric surgery psychological evaluation Z71.89 Additional Codes PHQ-9 - 34873 - PHQ-9 Billing: Yes ([id number]) Time Spent (min) 40
== END 2024-11-30 14:53 | disposition home or self-care (01) ==
LOC: HO.HBST 14:41
PROVIDERS: PCP Internal Medicine; Visit Provider Counselor Mental Health
DX: F41.9 Anxiety disorder, unspecified (principal); Z71.89 Other specified counseling
CPT/HCPCS: 90834

== ENCOUNTER → 2024-12-06 07:58 | Outpatient (REF) | payer OTHER, SELFPAY ==
--- NOTE | 2024-12-06 08:00 | CA_ITS ---
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 The calculated ejection fraction is 66% by biplane method. - No obvious valvular pathology seen on this study. Findings Procedure Information Contrast agent, definity, is being given per protocol without apparent complications. Left Ventricle Normal left ventricular cavity size. There is normal left ventricular wall thickness. The left ventricular systolic function is normal. The calculated ejection fraction is 66% by biplane method. There is no evidence of regional wall motion abnormalities. Diastolic function is normal for age. Right Ventricle Normal right ventricular cavity size. There is low normal right ventricular systolic function. Atria Both atria are normal in size. Aortic Valve There is a normal trileaflet aortic valve. There is no aortic valve stenosis. There is no aortic valve regurgitation. Mitral Valve The mitral valve appears normal. There is no mitral valve regurgitation. There is no mitral valve stenosis. Pulmonic Valve The pulmonic valve is likely normal. Tricuspid Valve There is trace tricuspid valve regurgitation. There is no evidence of pulmonary hypertension. Great Vessels The asc aorta is normal in size. Venous The inferior vena cava is normal in size and collapses greater than 50% with inspiration. Pericardium/Pleural There is no evidence of pericardial effusion. Prior Study Comparison No significant change compared to prior study dated: 04/20/2022. Recommendations, Care & Conclusions No obvious valvular pathology seen on this study. Measurements 2D Linear Measurements IVSd: 0.93 0.6-0.9/0.6-1.0 cm LVIDd: 4.26 3.9-5.3/4.2-5.9 cm LVIDd Index: 2.39 2.4-3.2/2.2-3.1 cm/m2 LVIDs: 2.92 2.0-3.6 cm LVPWd: 0.75 0.7-1.1 cm LA Diam: 3.50 2.7-3.8/3.0-4.0 cm LAIDs Index: 1.97 1.5-2.3 cm/m2 LV Mass: 137.57 67-162/88-224 g LV Mass Index: 77.28 43-95/49-115 g/m2 LVOT Diam: 2.00 3.0+(-)1.3 cm 2D Systolic Function EF 4C: 65.90 >55% EF 2C: 65.90 >55% EF BiP: 65.90 >55% Mitral Valve MV Pk E: 0.89 MV PK A: 0.64 MV Decel Time: 222.00 E/A: 1.40 E'Lateral: 8.38 E'Medial: 5.66 E/E' Med: 15.70 E/E' Lat: 10.60 PHT: 65.00 MVA PHT: 3.38 Decel Atkinson: 4.01 Aortic Valve AoV Pk Milo: 1.07 AoV Mn Milo: 0.74 AoV VTI: 0.23 AoV Pk Grad: 5.00 Aov Mn Grad: 3.00 ELAN Cont.VTI: 2.56 LVOT LVOT Pk Milo: 0.78 LVOT Mn Milo: 0.52 LVOT VTI: 0.19 LVOT Pk Grad: 2.00 LVOT Mn Grad: 1.00 LVOT Diam: 2.00 LVOT Area: 3.14 Diastolic Function MV Pk E: 0.89 MV Pk A: 0.64 E/A: 1.40 E'Medial: 5.66 E/E' Med: 15.70 E' Laterial: 8.38 E/E' Lat: 10.60 Right Ventricle TAPSE (mm): 19.20 TVS' Milo: 9.25 Tricuspid Valve TR Pk Milo: 2.19 TR Pk Grad: 19.00 RA Press: 3.00 RVSP: 22.00 Great Vessels Aorta Sinus of Valsalva: 2.94 2.0-3.[address] Ridge: 2.45 1.7-3.4 cm Ao Asc: 3.00 2.1-3.4 cm Updated in Other Vendor System with Status of Final Marco Yee MD electronically signed on 12/07/2024 3:02:52 PM with status of Final
== END ==
LOC: HO.CARD 07:58
PROVIDERS: PCP Internal Medicine; Visit Provider Surgery
DX: R94.31 Abnormal electrocardiogram [ECG] [EKG] (principal)
CPT/HCPCS: 93306; Q9957

== ENCOUNTER → 2024-12-06 08:00 | Outpatient (BNV) | payer OTHER, SELFPAY | PROVIDERS: PCP Internal Medicine; Visit Provider Internal Medicine | DX: R94.31 Abnormal electrocardiogram [ECG] [EKG] (principal) | CPT/HCPCS: 93306 ==

== ENCOUNTER 2024-12-07 08:11 | Outpatient (AMB) | payer OTHER, SELFPAY ==
--- NOTE | 2024-12-07 08:52 | A.OFFVIS_ITS ---
VS Expanded 12/07/24 09:09 Height 5 ft 1 in Weight 172 lb 8 oz BMI 32.6 Body Fat % 42 Body Fat Mass 72.5 Fat Free Mass 100 Visceral Fat Rating 15 Body Water % 39.7 Body Water Mass 68.6 Basal Metabolic Rate/Score 1,350 Intake Visit Reasons: TV Pre Op LSG 12/25/24 Allergies metronidazole [From Metrogel] Allergy (Intermediate, Verified 12/07/24 08:53) Rash Medication List - Last Reconciled 12/07/24 by Niraj De La Vega MD cholecalciferol (vitamin D3) 25 mcg PO DAILY dicyclomine 20 mg PO TID hydrochlorothiazide 25 mg PO QAM 90 days levonorgestrel (Mirena) intrauterine lorazepam 0.5 mg PO BEDTIME PRN 30 days losartan 50 mg PO BID 90 days ondansetron 4 mg PO Q12H pantoprazole 40 mg PO DAILY polyethylene glycol 3350 17 grams PO DAILY potassium chloride 20 mEq PO BID sucralfate 10 mL PO BID thiamine HCl (vitamin B1) 100 mg PO DAILY HPI HPI TV Pre Op LSG 12/25/24: Details: Start time: 8.42am, End time: 9.12am ?I spent 25 minutes speaking with the patient on the phone plus an additional 5 minutes reviewing and updating records for a total of 30 minutes HPI Comments Details: Overall weight loss: 13.2lbs, or 7.1% TBWL Is doing 3 Celebrate protein bars and one meal (6 forks of meat and 6 forks of salad/vegetables) Exercise: stationary bike x4/wk for 200 calories PFSH Medical History (Updated 10/09/24 @ 19:38 by Niraj De La Vega MD) Obesity Stress incontinence Physical exam Left sided sciatica Kidney stone Left flank pain Urinary frequency Weight loss Abnormal surgical wound Dysuria Right tennis elbow History of uterine fibroid Chest congestion Pernicious anemia At high risk for breast cancer Family history of breast cancer Encounter for pre-operative cardiovascular clearance Preop cardiovascular exam Preoperative clearance Physical exam BRCA negative Essential hypertension B12 deficiency Hypovitaminosis D Anxiety Chronic GERD Hypertension Surgical History History of breast lift History of breast implant Hx of abdominoplasty History of mammogram History of removal of cyst History of tubal ligation Family History Mother Diabetes High blood pressure Breast cancer Cervical cancer Father Cancer Alzheimer disease Parkinsons disease Maternal Grandmother Breast cancer Social History Household Members: Family Housing: House Are you a primary med care manager to a significant other at home: No Do you presently have visiting nurse or other home services: No Alcohol intake: former Patient Tobacco Use Status: Never used Tobacco e-Cigarette/Vaping Use: Never Used Second Hand Smoke Exposure: No Substance Use Type: Marijuana service: No Current occupational status: employed Current occupational exposures/hazards: No Cognitive needs: No Hearing needs: No Vision needs: No Female Reproductive History Menstrual Age of Menarche: 14 Telehealth Telehealth Telehealth Platform: Telephone Location of provider rendering services: practice address Location of patient: address on file Patient Identification confirmed using: Name, : Yes Telehealth method: voice only Patient verbally consented to treatment: Yes Patient verbally consented to billing insurance company: Yes Patient informed of any privacy concerns related to visit: Yes Minutes spent on Phone/Video with Pt.: 30 Assessment & Plan Assessment & Plan (1) Obesity: Code(s): E66.9 - Obesity, unspecified Category: Medical Qualifiers: Obesity type: due to excess calories Obesity classification: adult class 1 (BMI 30 - 34.9) Serious obesity comorbidity presence: with serious comorbidity Body mass index: BMI 34.0-34.9 Qualified Code(s): E66.811 - Obesity, class 1; E66.09 - Other obesity due to excess calories; Z68.34 - Body mass index [BMI] 34.0-34.9, adult Plan: 1. Plan for lap sleeve gastrectomy including upper GI endoscopy. All tests has been completed and reviewed and the patient is cleared for the surgery. ?If diaphragmatic or ventral hernias are present at time of surgery, these will be repaired laparoscopically as well. Risks and complications were discussed in detail including possible conversion to an open procedure, anastomotic leak, bleeding requiring transfusion, small bowel obstruction, , DVT and pulmonary embolism, cardiac, or pulmonary complications, as technician terminal and repeater complications such as anastomotic ulcer, insufficient weight loss and vitamin deficiencies. I emphasized the importance of close follow-up, adherence to instructions and good communication. So far she has proven to be an excellent communicator and very compliant with all our directions accomplishing a great weight loss. I believe that she is an excellent candidate and she is ready. 2. Preop prescriptions were provided and explained the purpose of each one. Need to be purchased preop. Start Pantoprazole now as you get it from the pharmacy, 1 pill per day. Sucralfate and Zofran are for after surgery as needed. 3. Bowel prep: please do 7 packets ?of Miralax mixing each one with a an 8oz gla ss of water, crystal light, gatorade zero, or propel ?on 12/23/24 and the same amount on 12/24/24. The Miralax you begin with one packet at a time in 8oz water or crystal light, gatorade zero, or propel ?as early in the day as you can and you do them back to back until you finish them. Continue the protein shakes during ?the bowel prep. 4. Needs to purchase 1oz medicine cups . 5. Needs to purchase Children's liquid Tylenol for postop pain control. 6. She needs to stop the Hydrochlorothiazide on 12/23/24 (last dose that day if your blood was high enough). Avoid aspirin, motrin, Advil, Aleve, Meloxicam, Excedrin, Ibuprofen, Naproxyn. Tylenol is OK. 7. She needs to purchase the Celebrate 4:1 protein shakes or the Celebrate multivitamins from the hospital's gift shop, chewable or pills whatever you prefer. 8. Will do basic preop blood work-up any day between Tuesday12/17/24 and Tuesday12/21/24 fasting for 12 hours and is scheduled to see the Anesthesiologist prior to the day of surgery. 9. Importance of adherence to postop folllow-up and recommendations was underscored and she understands that. 10. Stop food and bars as of Tuesday12/15/24 and continue with 4 Celebrate REBUILD protein shakes (ONE scoop EACH in 8oz almond milk) at 7am-9am, 10am- 12pm, 1pm-3pm, 4pm-6pm and one more Celebrate REBUILD protein shake with TWO scoops in 8oz of almond milk at 7pm-9pm 11. No soups, broths or V8 12. The patient's?medical?history has been reviewed and they are considered low risk for post op DVT and therefore DVT prophylaxis is not considered necessary. Travel after surgery was reviewed. The patient has not disclosed any travel plans during the first 30 days after surgery and they have been advised that within the first 30 days after surgery any bus, plane, train or car travel over 2 hours in duration is contraindicated due to the possibility of developing blood clots from immobility. Any travel, needs to include periods of ambulation of 10 minutes in duration every 2 hours.? Patient was instructed to discuss any plans for travel during this period with their bariatric surgeon.? 13.As of tomorrow, please check your blood pressure daily in the morning. If your blood pressure is: Below 120/70: do not take the Losartan and Hydrochlorothiazide 121/71 to 135/85: take HALF Losartan and HALF Hydrochlorothiazide Over 136/86: take the whole Losartan and Hydrochlorothiazide 14. Please take at the day of surgery the following medications: LOSARTAN if the blood pressure that day is high enough to justify it based on the parameters at the previous bullet point. 15. Stop any control pills and don't use them for one month after surgery 16. Absolutely no smoking or vaping, or marijuana until the surgery and for at least the first 4 weeks. Only nicotine patches are allowed. 17. Send me weight measurements on and then on the day of surgery before you go to the hospital. 18. Avoid any steroids by mouth for any reason. Let me know if someone prescribes them to you 19. These instructions supersede anything else you read in the handbook, anything you watched in videos or classes or you were told by any other provider. If there is any conflict, you follow the above instructions and nothing else. Orders: Orders Comprehensive Met. Panel Today E66.09 - Other obesity due to excess calories, E66.811 - Obesity, class 1, Z68.33 - Body mass index [BMI] 33.0-33.9, adult, Z68.34 - Body mass index [BMI] 34.0-34.9, adult Type and Screen Today E66.09 - Other obesity due to excess calories, E66.811 - Obesity, class 1, Z68.33 - Body mass index [BMI] 33.0-33.9, adult, Z68.34 - Body mass index [BMI] 34.0-34.9, adult TSH reflex Free T4 Today E66.09 - Other obesity due to excess calories, E66.811 - Obesity, class 1, Z68.33 - Body mass index [BMI] 33.0-33.9, adult, Z68.34 - Body mass index [BMI] 34.0-34.9, adult Prothrombin Time INR Today E66.09 - Other obesity due to excess calories, E66.811 - Obesity, class 1, Z68.33 - Body mass index [BMI] 33.0-33.9, adult, Z68.34 - Body mass index [BMI] 34.0-34.9, adult Partial Thromboplastin Time Today E66.09 - Other obesity due to excess calories, E66.811 - Obesity, class 1, Z68.33 - Body mass index [BMI] 33.0-33.9, adult, Z68.34 - Body mass index [BMI] 34.0-34.9, adult C Reactive Protein Today E66.09 - Other obesity due to excess calories, E66.811 - Obesity, class 1, Z68.33 - Body mass index [BMI] 33.0-33.9, adult, Z68.34 - Body mass index [BMI] 34.0-34.9, adult Lipid Panel Today E66.09 - Other obesity due to excess calories, E66.811 - Obesity, class 1, Z68.33 - Body mass index [BMI] 33.0-33.9, adult, Z68.34 - Body mass index [BMI] 34.0-34.9, adult Hemoglobin A1c Today E66.09 - Other obesity due to excess calories, E66.811 - Obesity, class 1, Z68.33 - Body mass index [BMI] 33.0-33.9, adult, Z68.34 - Body mass index [BMI] 34.0-34.9, adult Complete Blood Count Auto Diff Today E66.09 - Other obesity due to excess calories, E66.811 - Obesity, class 1, Z68.33 - Body mass index [BMI] 33.0-33.9, adult, Z68.34 - Body mass index [BMI] 34.0-34.9, adult Insulin Today E66.09 - Other obesity due to excess calories, E66.811 - Obesity, class 1, Z68.33 - Body mass index [BMI] 33.0-33.9, adult, Z68.34 - Body mass index [BMI] 34.0-34.9, adult Medications: New pantoprazole 40 mg PO DAILY 90 tabs 0RF K21.9 - Gastro-esophageal reflux disease without esophagitis sucralfate 10 mL PO BID 600 mL 2RF K21.9 - Gastro-esophageal reflux disease without esophagitis polyethylene glycol 3350 Mix each measuring cup with 8oz of water, Crystal light, or Gatorade zero, or Propel and do 7 measuring cups on 12/23/24 and another 7 measuring cups on 12/24/24 17 grams PO DAILY 238 grams 0RF Z01.818 - Encounter for other preprocedural examination ondansetron Only take one every 12 hours as needed if you have nausea 4 mg PO Q12H 20 tabs 0RF nausea and vomiting R11.0 - Nausea
[2024-12-07 09:09] VITALS: BMI 32.6
== END 2024-12-07 09:12 | disposition home or self-care (01) ==
LOC: HO.HBS 08:11
PROVIDERS: PCP Internal Medicine; Visit Provider Surgery
DX: E66.811 Obesity, class 1 (principal); E66.09 Other obesity due to excess calories; Z68.34 Body mass index [BMI] 34.0-34.9, adult
CPT/HCPCS: 99214

== ENCOUNTER 2024-12-25 10:48 | Inpatient (IN) | payer OTHER, SELFPAY ==
[2024-12-10 10:29] VITALS: BMI 32.3
[2024-12-18 08:34] LABS: MANUAL DIFF FLAG NO
[2024-12-18 09:33] LABS: Basophils Absolute Auto 0.1 X10*3/uL (0.0-0.2); Basophils Percent Auto 1.4 % (0-2); Eosinophils Absolute Auto 0.2 X10*3/uL (0.0-0.4); Eosinophils Percent Auto 2.9 % (0-4); Hematocrit 43.5 % (37.0-47.0); Hemoglobin 14.9 g/dl (12.0-16.0); Imm Gran Abs Auto 0.02 X10*3/uL (0.00-0.03); Imm Gran Pct Auto 0.4 % (0.0-0.4); Lymphocytes Absolute Auto 1.3 X10*3/uL (1.2-4.9); Lymphocytes Percent Auto 22.9 % (20-40); Mean Corpuscular HGB Conc 34.3 g/dl (31.0-35.0); Mean Corpuscular Volume 78.8 fL (80.0-98.0); Mean Platelet Volume 10.4 fL (9.4-12.3); Monocytes Absolute Auto 0.5 X10*3/uL (0.1-1.2); Monocytes Percent Auto 8.1 % (2-11); Neutrophils Absolute Auto 3.6 x10*3/uL (2.0-8.3); Neutrophils Percent Auto 64.3 % (45-73); Platelet Count 407 X10*3/uL (160-400); Red Blood Count 5.52 X10*6/uL (4.20-5.50); White Blood Count 5.5 X10*3/uL (4.8-10.8)
[2024-12-18 09:34] LABS: INTERNATIONAL NORM RATIO 1.1 (0.9-1.1); Prothrombin Time 12.7 SEC (10.9-12.4)
[2024-12-18 09:37] LABS: Partial Thromboplastin Time 38.6 SEC (26.0-36.8)
[2024-12-18 09:46] LABS: Estimated Average Glucose 100 mg/dL; Hemoglobin A1c % 5.1 % (<6.0)
[2024-12-18 10:06] LABS: Alanine Aminotransferase 148 U/L (0-31); Albumin Level 4.5 g/dL (3.5-5.0); Alkaline Phosphatase 83 U/L (39-117); Anion Gap 13 (12-20); Aspartate Amino Transferase 77 U/L (5-31); Blood Urea Nitrogen 15 mg/dL (9-16); C Reactive Protein 0.64 mg/dL (< or = 0.50); Calcium 9.8 mg/dL (8.4-10.2); Carbon Dioxide 29 mmol/L (22-29); Chloride 102 mmol/L (96-108); Cholesterol 182 mg/dL (<200); Creatinine Clr Calc Pharmacy 102.9; Estimated Glomerular Filt Rate > 60; Glucose Random 93 mg/dL (60-115); HDL Cholesterol 32 mg/dL (>40); LDL Cholesterol Calculated 125 mg/dL (<100); Potassium 3.5 mmol/L (3.3-5.1); Sodium 140 mmol/L (135-145); Total Protein 7.7 g/dL (6.5-8.0); Triglycerides 126 mg/dL (<150)
[2024-12-18 10:38] LABS: Insulin 7 uU/mL (2-29)
--- NOTE | 2024-12-24 09:19 | HO.ANESPROP2 ---
Documented by User: Tabatha Sandhu NP 12/24/24 09:24 HPI - Anesthesia Eval Consult details Narrative: 49yo F for Gastrectomy Sleeve,EGD,possible Diaphragmatic Hernia,possible Ventral Hernia,possible Open PMFSH Active Problems Active Problems: All Active Problems Abnormal EKG (Acute) Vitamin B1 deficiency (Acute) Hypokalemia (Acute) BMI 34.0-34.9,adult (Acute) Encounter for well woman exam with routine gynecological exam (Acute) Severe obesity with body mass index (BMI) of 36.0 to 36.9 with serious comorbidity (Acute) Insomnia (Acute) Pre-op examination (Acute) Chronic GERD (Acute) IBS (irritable colon syndrome) (Acute) Dense breast tissue on mammogram (Acute) Obesity (Acute) Stress incontinence (Acute) Physical exam (Acute) Essential hypertension (Acute) B12 deficiency (Acute) Hypovitaminosis D (Acute) Anxiety (Acute) Past Medical History Medical History Hiatal hernia Obesity Stress incontinence BRCA negative Left sided sciatica Kidney stone Left flank pain Urinary frequency Physical exam Weight loss Physical exam Abnormal surgical wound Preop cardiovascular exam Preoperative clearance Encounter for pre-operative cardiovascular clearance Dysuria Right tennis elbow History of uterine fibroid Chest congestion Essential hypertension Pernicious anemia B12 deficiency Hypovitaminosis D At high risk for breast cancer Anxiety Chronic GERD Family history of breast cancer Hypertension Family History Family History Mother Diabetes High blood pressure Breast cancer Cervical cancer Father Cancer Alzheimer disease Parkinsons disease Maternal Grandmother Breast cancer Family history of problems with anesthesia: No Surgical History Surgical History History of esophagogastroduodenoscopy (EGD) H/O colonoscopy History of breast lift History of breast implant Hx of abdominoplasty History of mammogram History of removal of cyst History of tubal ligation History of Problems with Anesthesia: No Social History Social History Household Members: Family Housing: House Are you a primary direct support professional caregiver to a significant other at home: No Do you presently have visiting nurse or other home services: No Alcohol intake: former Patient Tobacco Use Status: Never used Tobacco e-Cigarette/Vaping Use: Never Used Second Hand Smoke Exposure: No Use of substances other than those prescribed or required for medical reasons: No Substance Use Type: Marijuana Have you been hit, kicked, punched, or otherwise hurt by someone within the past year? If so, by whom?: No Are you DNR?: No Advance Directives: No Advance Directives Information Provided: Yes Advance Directives on File: No Patient : No : No Poor oral hygiene: Yes service: No Current occupational status: employed Current occupational exposures/hazards: No Cognitive needs: No Hearing needs: No Vision needs: No Meds Allergies Allergy/AdvReac Type Severity Reaction Status Date / Time metronidazole (From Metrogel) Allergy Intermediate Rash Verified 12/07/24 08:53 Home Medications ?Medication ?Instructions ?Recorded ?Confirmed ?Last Taken ?Type levonorgestrel 21 mcg/24 hr (up to 21 mcg intrauterine ONCE 12/31/21 12/10/24 09/01/22 History 8 years) 52 mg intrauterine device (Mirena) dicyclomine 20 mg tablet 20 mg PO TID PRN Diarrhea 12/10/24 12/10/24 12/22/24 History lorazepam 0.5 mg tablet 0.5 mg PO DAILY PRN anxiety 12/10/24 12/10/24 12/21/24 History losartan 50 mg tablet 100 mg PO DAILY 12/10/24 12/10/24 12/20/24 History multivitamin 1 tab PO DAILY 12/10/24 12/10/24 12/22/24 History Exam Height,Weight and Vital Signs: Height 5 ft 1 in Weight 77.564 kg Pertinent Lab Results Pertinent Lab Results: Laboratory Tests 12/18/24 08:26 WBC 5.5 RBC 5.52 H Hgb 14.9 Hct 43.5 MCV 78.8 L MCH 27.0 MCHC 34.3 RDW 13.0 Plt Count 407 H MPV 10.4 Immature Gran % (Auto) 0.4 Neut % (Auto) 64.3 Lymph % (Auto) 22.9 Evangeline % (Auto) 8.1 Eos % (Auto) 2.9 Baso % (Auto) 1.4 Lymph # (Auto) 1.3 Evangeline # (Auto) 0.5 Eos # (Auto) 0.2 Baso # (Auto) 0.1 Abs Immat Gran (auto) 0.02 Absolute Neuts (auto) 3.6 Absolute Nucleated RBC 0.000 Nucleated RBC % (auto) 0.0 PT 12.7 H INR 1.1 APTT 38.6 H Sodium 140 Potassium 3.5 Chloride 102 Carbon Dioxide 29 Anion Gap 13 BUN 15 Creatinine 0.63 Estim Creat Clear Calc 102.9 Estimated GFR > 60 Random Glucose 93 Estimat Average Glucose 100 Hemoglobin A1c % 5.1 Insulin Level 7 Calcium 9.8 Total Bilirubin 1.0 AST 77 H ALT 148 H Alkaline Phosphatase 83 C-Reactive Protein 0.64 H Total Protein 7.7 Albumin 4.5 Triglycerides 126 Cholesterol 182 LDL Cholesterol, Calc 125 H HDL Cholesterol 32 L TSH 1.60 Blood Type O Positive Antibody Screen NEGATIVE Narrative Narrative: EKG 10/2024 Vent. Rate : 75 BPM Atrial Rate : 75 BPM P-R Int : 156 ms QRS Dur : 100 ms QT Int : 400 ms P-R-T Axes : 57 51 -7 degrees QTcB Int : 446 ms Normal sinus rhythm Nonspecific T wave abnormality Abnormal ECG When compared with ECG of 07-Apr-2022 09:51, T wave inversion no longer evident in Lateral leads Stress ECHO 11/2024 Conclusion : Stress echo is non diagnostic for ischemia ECHO 12/2024 Conclusions: - The left ventricular systolic function is normal. The calculated ejection fraction is 66% by biplane method. - No obvious valvular pathology seen on this study. Assessment and Plan Assessment Anesthesia Assessment: Chart Reviewed Final Anesthetic Review Family History of Problems with Anesthesia: No History of Problems with Anesthesia: No Documented by User: Mamie Fountain MD 12/25/24 12:23 [facility] Past Medical History Medical History Hiatal hernia Obesity Stress incontinence BRCA negative Left sided sciatica Kidney stone Left flank pain Urinary frequency Physical exam Weight loss Physical exam Abnormal surgical wound Preop cardiovascular exam Preoperative clearance Encounter for pre-operative cardiovascular clearance Dysuria Right tennis elbow History of uterine fibroid Chest congestion Essential hypertension Pernicious anemia B12 deficiency Hypovitaminosis D At high risk for breast cancer Anxiety Chronic GERD Family history of breast cancer Hypertension Family History Family History Mother Diabetes High blood pressure Breast cancer Cervical cancer Father Cancer Alzheimer disease Parkinsons disease Maternal Grandmother Breast cancer Surgical History Surgical History History of esophagogastroduodenoscopy (EGD) H/O colonoscopy History of breast lift History of breast implant Hx of abdominoplasty History of mammogram History of removal of cyst History of tubal ligation Social History Social History Household Members: Family Housing: House Are you a primary direct support professional caregiver to a significant other at home: No Do you presently have visiting nurse or other home services: No Alcohol intake: former Patient Tobacco Use Status: Never used Tobacco e-Cigarette/Vaping Use: Never Used Second Hand Smoke Exposure: No Use of substances other than those prescribed or required for medical reasons: No Substance Use Type: Marijuana Have you been hit, kicked, punched, or otherwise hurt by someone within the past year? If so, by whom?: No Are you DNR?: No Advance Directives: No Advance Directives Information Provided: Yes Advance Directives on File: No Patient : No : No Poor oral hygiene: Yes service: No Current occupational status: employed Current occupational exposures/hazards: No Cognitive needs: No Hearing needs: No Vision needs: No Meds Allergies Allergy/AdvReac Type Severity Reaction Status Date / Time metronidazole (From Metrogel) Allergy Intermediate Rash Verified 12/07/24 08:53 Home Medications ?Medication ?Instructions ?Recorded ?Confirmed ?Last Taken ?Type levonorgestrel 21 mcg/24 hr (up to 21 mcg intrauterine ONCE 12/31/21 12/10/24 09/01/22 History 8 years) 52 mg intrauterine device (Mirena) dicyclomine 20 mg tablet 20 mg PO TID PRN Diarrhea 12/10/24 12/10/24 12/22/24 History lorazepam 0.5 mg tablet 0.5 mg PO DAILY PRN anxiety 12/10/24 12/10/24 12/21/24 History losartan 50 mg tablet 100 mg PO DAILY 12/10/24 12/10/24 12/20/24 History multivitamin 1 tab PO DAILY 12/10/24 12/10/24 12/22/24 History Exam Airway Mallampati Class: II TM Dist: >3cm Neck ROM: Full Heart: rrr Lungs: cta Assessment and Plan Assessment Anesthesia Assessment: Anesthesia Plan Discussed Final Anesthetic Review NPO: Yes ASA Class: III Final Preanesthetic Review: No Changes in Pt Med Stat, Meds/Allgs Chart Reviewed, Consent Obtained/Reviewed and Anes Risks/Benef Reviewed Patient Risk: Intermediate Procedure Risk: Intermediate Anesthetic Plan Anesthetic Plan: GA Disposition: Standard PACU
[2024-12-25] VITALS (9 sets, daily range): BP systolic 122–148; BP diastolic 70–96; PULSE 83–88; RESP 12–18; TEMP 36–37.3; O2SAT 92–100; BMI 31.5
[2024-12-25] MEDS: Lactated Ringers 1,000 ML 999 ML IV (11:11)
[2024-12-25] MEDS: Aprepitant 32 MG/4.4 ML VIAL IVPUSH (11:11)
--- NOTE | 2024-12-25 12:34 | P.BOP_ITS ---
Brief Operative Note Date of Service: 12/25/24 Pre-op diagnosis: Severe obesity with comorbidities (see below) Post-op diagnosis: same Procedure: INITIAL PATIENT BMI ON PRESENTATION AT OUR OFFICE: 34.6 kg/m2 LAST BMI BEFORE SURGERY: 32 kg/m2 COMORBIDITIES: anxiety, hypertension, stress incontinence, liver fibrosis, cholelithiasis ?The patient presented to the Weight Management Program with significant obesity that was negatively impacting the patient's comorbidities as listed above.? The program is a phased program with a special focus on preoperative medical weight management to promote substantial weight loss and prepare the patients for the second phase of the program: bariatric surgery. The patient participated in an intensive weekly lifestyle ?intervention and exercise program during which the patient ?has lost between the initial office visit and the last preoperative visit 18.8lbs, or 10.11% of initial actual body weight. It was deemed appropriate for the patient to now have bariatric surgery. In light of the current Covid-19 pandemic and the well documented strong association of obesity and increased risk of worse outcomes if infected with Covid-19 (REFERENCES: https://pubmed.ncbi.nlm.nih.gov/71666769/ ,? https://pubmed.ncbi.nlm.nih.gov/56316785/ ), any delay in undergoing bariatric surgery may lead to the patient's worsening health condition and increased?risk of more severe Covid-19 disease if infected. In addition a recent?study from [facility] published in [employer] on 06/29/2021 ([email or web address]) found that, among patients with obesity, substantial weight loss achieved with surgery was associated with improved outcomes of COVID-19 infection. The findings suggest that obesity can be a modifiable risk factor for the severity of COVID-19 infection. In addition, the patient met the BMI-criteria for bariatric surgery based on the BMI on initial presentation. The patient should not be penalized for achieving such weight loss because ?it is not sustainable long-term without surgical intervention and it was achieved in preparation for bariatric surgery ?under my direction and based on my published research ([email or web address]).[email or web address] and? https://www.soard.org/article/[email or web address](63)92266-X/pdf ) ?that a 10% preo perative weight loss improves long-term weight loss after surgery and reduces perioperative complications.? Insurance carriers such as [facility] have endorsed my recommendations ?and have included in their policies criteria to include a 10% preoperative weight loss requirement. PROCEDURE: Esophago-gastroscopy, laparoscopic sleeve gastrectomy and laparoscopic gastropexy INDICATIONS: This is a 49 year-old female who was electively scheduled for laparoscopic, possibly open sleeve gastrectomy. The risks and complications of the procedure were discussed with the patient in advance, particularly the pos sibility of ; pulmonary embolism; staple line leak; bleeding; GERD; cardiac, pulmonary, or renal complications; as well as long-term problems such as insufficient weight loss, vitamin deficiency, strictures, or ulcers. The patient understood all the risks, and was in agreement to proceed with surgery. DESCRIPTION OF PROCEDURE: After informed consent was obtained from the patient, the patient was given preoperative antibiotics, and was transferred to the operating room. After successful induction of general anesthesia, pneumatic compression devices were placed on both lower extremities. An upper endoscopy was performed next. The oropharynx and esophagus appeared to be within normal limits. There was no diaphragmatic hernia present. The stomach was entered. Then after all fluid and air were suctioned and the stomach was fully decompressed, the scope was withdrawn and secured in the mid esophagus. The patient was then prepped and draped in the usual sterile manner, and abdominal access was established at the right upper quadrant with the Deanne technique. A 12 mm blunt port was inserted, and the abdomen was insufflated with CO2 to a pressure of 15 mmHg. Under direct visualization, additional ports were placed, specifically two 5 mm Versi-step ports to the left upper quadrant, and a 5 mm Versi-Step port to the right upper quadrant. 1% lidocaine plain was used to infiltrate all port sites as well as all fascia defects. Following that, the patient was placed in a steep reverse Trendelenburg position. An additional 5 mm port was placed to the right flank for the Mediflex retractor that was used to retract the left lobe of the liver. The gastro-esophageal fat pad was opened with the ultrasonic device (Thmarianaerbeat, Olympus) and the anterior esophagus and hiatus were exposed. The angle of His was opened with the ultrasonic device the fundus of the stomach from any diaphragmatic and splenic attachments. I then opened the gastrocolic ligament between the transverse colon and the greater curvature of the stomach with the ultrasonic device to enter the lesser sac and facilitate the ligation of the short gastric vessels. I started at a mid-point along the greater curvature and using the Thunderbeat, all short gastric vessels were divided all the way to the angle of His until the left alexandre was completely dissected at its entirety. I then divided the gastro-colic ligament distally to a distance of about 3-4 cm proximal to the pylorus. The stomach was then divided transversely with five Endo JUAN-45 purple and one JUAN-60 articulating purple loads using the BetterCloud stapler and loads. Every effort was made that the gastric sleeve had a tubular shape and an even caliber throughout. Once the sleeve resection was completed, the staple line of the gastric sleeve was reinforced with Hemoclips. The resected stomach was retrieved without difficulty from the Deanne port. A gastropexy was then performed in order to prevent postoperative GERD and partial gastric volvulus. Several interrupted 2.0 Surgidac sutures were placed between the sleeve's staple line and the previously divided greater omentum and gastro-colic ligament using the Endo-Stitch device. ?An upper endoscopy was performed. There was no narrowing at the GE junction. The scope was easily advanced all the way to the pylorus which was clearly visualized. There was no narrowing anywhere and the sleeve's caliber was even throughout. The sleeve's staple line was inspected and there was no evidence of ischemia, bleeding or dehiscence. At that point the gastroscope was withdrawn from the patient?s mouth while we were decompressing the bowel and the stomach from any remaining air. I looked into the lesser sac to see how the sleeve was situating and it was situating well. There was no bleeding from the staple line, spleen, or short gastric vessels. The Mediflex retractor was removed, and the undersurface of the liver was inspected and there was no bleeding. The patient was placed in supine position. I closed the fascial defect of the 12 mm port site with a figure of eight #1 Polysorb suture. Then 30cc Ropivacaine plain with 10 mg of Dexamethasone were used to infiltrate the fascial closure as well as all skin incisions. At this point, the abdomen was deflated, all ports were removed under direct vision, and no bleeding was noted from any of the port sites. The skin incisions were irrigated with saline and were closed with 4-0 absorbable monofilament sutures. Steri-Strips and OpSites were used to cover all incisions. The patient was extubated and was transferred in stable condition to the recovery room for further care. I was present and performed all jameson parts of the procedure. Mr. Muniz was the minister assistant. There were no residents to assist with this case. Luis De La Vega MD, PhD, FACS Surgeon: Niraj De La Vega MD Anesthesia: GETA, local and other (TAP block) Was an Solution Designer used for this Procedure?: No Solution Designer: Hai Muniz Estimated blood loss (mL): 10 IV fluids (mL): 2,800 Urine output (mL): 0 (No Amanda to record output) Pathology: other (1) Stomach, 2) Gastro-esophageal fat pad) Condition: stable Disposition: PACU
--- NOTE | 2024-12-25 12:34 | MHC.SHP ---
Pre-Procedural Eval Section A - 24 Hr Update-Section A only Date of Service: 12/25/24 The patient is an INPATIENT: Yes The patient has been examined within 24 hours of the surgical procedure. The History & Physical has been completed within 30 days and I have reviewed it.: Yes Section B - Complete if H&P > 30 days Chief Complaint: Obesity Relevant Family History (Specify if Yes): No Relevant Social History: None Present Medications: None Medical History: No relevant PMH History of Previous Operations: No relevant previous surgery Allergies: Allergies Allergy/AdvReac Type Severity Reaction Status Date / Time metronidazole (From Metrogel) Allergy Intermediate Rash Verified 12/07/24 08:53 Review of Systems Sugical H&P ROS: Negative: Constitution, Cardiovascular, Respiratory, Neurological, Psychiatric, Hem-Onc, Allergic/Immunologic, Gastrointestinal, Genitourinary, Musculoskeletal, Integumentary, Endocrine and Eyes/Ears/Nose/Throat Exam Surgical H&P Exam: Normal: HEENT, Normal: Heart, Normal: Lungs, Normal: Extremities, Normal: Abdomen, Normal: Skin and Normal: Neurological Plan Diagnosis/Plan: Unchanged I have reviewed the history and physical and performed a pertinent physical examination on my patient. No changes have occurred unless specified. Time Spent With Patient Time: Total time managing care of this patient today ____ minutes.
--- NOTE | 2024-12-25 12:45 | P.PNGS_ITS ---
Subjective Subjective Date of Service: 12/26/24 Interval history: Feels well. Mild incisional pain. She is tolerating phase 1 bariatric diet Physical Exam 2 Vital Signs: Vital Signs: Last Vital Signs Temp 99.1 F 12/25/24 11:03 Pulse 88 12/25/24 11:03 Resp 16 12/25/24 11:03 BP 139/91 H 12/25/24 11:03 Pulse Ox 97 12/25/24 11:03 O2 Del Method Room Air 12/25/24 11:03 BMI result Body Mass Index 31.5 GI: Inspection: Yes normal to inspection, Yes incision (clean, dry and intact) and Yes obesity Palpation (GI): Soft to palpation Extrem: Right lower extremity: normal to inspection (no calf tenderness) L eft lower extremity: normal to inspection (no calf tenderness) Objective Data Active Medications Haloperidol Lactate (Haloperidol Lactate 5 Mg/Ml Vial) 1 mg IVPUSH ONCE PRN PRN Reason: intractable nausea Stop: 12/25/24 18:23 Hydromorphone HCl (Hydromorphone Hcl 0.5 Mg/0.5 Ml Syringe) 0.25 mg IVPUSH Q5M PRN PRN Reason: Pain, Moderate to Severe (Pain Scale 4-10) Stop: 12/25/24 18:23 Naloxone HCl (Naloxone Hcl 0.4 Mg/Ml Vial) 0.04 mg IVPUSH Q5M PRN PRN Reason: Excessive sedation or RR < 8 Ondansetron HCl (Ondansetron Hcl 4 Mg/2 Ml Vial) 4 mg IVPUSH ONCE PRN PRN Reason: Nausea and Vomiting Stop: 12/25/24 18:23 Labs 12/26/24 05:34 12/26/24 05:34 Procedures Date of Service Date of Service: 12/26/24 Progress Note: A&P Assessment and plan (1) Obesity: Status: Acute Assessment and Plan: s/p laparoscopic sleeve gastrectomy and gastropexy Doing well Will check am labs and if OK the patient will be discharged home (2) BMI 32.0-32.9,adult: Status: Acute (3) Anxiety: Status: Acute (4) Essential hypertension: Status: Acute (5) Chronic GERD: Status: Acute (6) Stress incontinence: Status: Acute (7) Liver fibrosis: Status: Acute (8) S/P laparoscopic sleeve gastrectomy: Status: Acute Time Spent With Patient Time: Total time managing care of this patient today ____ minutes. Quality Stroke Does the patient have a stroke diagnosis?: No VTE Prior VTE?: No VTE Risk Level:: Surgical - moderate VTE Device Contraindication: N/A - Device Ordered VTE Drug Contraindication: Treatment Not Indicated
[2024-12-25] MEDS: ceFAZolin Sodium/Dextrose,Iso 2 GM/50 ML PIGGYBACK IV ×2 (12:50→18:01)
--- NOTE | 2024-12-25 13:44 | PHA.MEDREC ---
Addendum entered by Brandon Orozco [facility] 12/25/24 13:46: MED REC CHECKED BY [facility] Original Note: Pharmacy Consult ? Medication Reconciliation Pharmacy has reviewed the medication reconciliation done by nursing. Claims match med list.
[2024-12-25] MEDS: Acetaminophen 1,000 MG/100 ML PIGGYBACK 400 MG IV (14:20)
--- NOTE | 2024-12-25 14:49 | P.DS_ITS ---
DS: Providers Provider Date of Service: 12/26/24 Date of admission: 12/25/24 10:48 Date of discharge: 12/26/24 Primary care physician: Christal Jimenez MD DS: Diagnosis Discharge Diagnosis (1) Obesity: Status: Acute (2) BMI 32.0-32.9,adult: Status: Acute (3) Anxiety: Status: Acute (4) Essential hypertension: Status: Acute (5) Chronic GERD: Status: Acute (6) Stress incontinence: Status: Acute (7) Liver fibrosis: Status: Acute DS: Summary Hospital Course Hospital Course: ADMITTING DIAGNOSIS: obesity, htn, ibs, gerd ? DISCHARGE DIAGNOSIS: same, s/p laparoscopic sleeve gastrectomy ? PAST SURGICAL HISTORY: breast implant, tubal ligation, abdominoplasty ? PROCEDURE: upper endoscopy, laparoscopic sleeve gastrectomy ? DISCHARGE SUMMARY: ? History of Present Illness: ? The patient is a?49 year-old woman with a BMI of?34.6 kg/m2 and associated co- morbidities as described above. The patient had extensive work-up,lost?15.5 lbs preoperatively and was electively scheduled for laparoscopic, possible open sleeve gastrectomy and gastropexy. Risks and complications of the surgery were discussed with the patient in advance, particularly the possibility of , pulmonary embolism, anastomotic leak, bleeding, bowel injury, GERD, cardiac, renal or pulmonary complications. The patient understood all the risks and was in agreement with the surgical plan. ? Hospital Course: ? The patient underwent an uneventful laparoscopic sleeve gastrectomy with gastropexy on the day of admission. Postoperatively, the patient was transferred to the surgical floor. The patient received IV Acetaminophen and IV dilaudid for pain control. Patient was started on bariatric phase 1 diet POD #0. On postoperative day one, the patient was feeling well without nausea, vomiting, fevers, or tachycardia. The patient had some mild incisional pain and the abdomen was soft. ? On the morning of postoperative day one, the patient was continued on 1 ounce of water or ice every half hour. During the day, the patient did fairly well, having some incisional pain, but able to ambulate adequately and to tolerate liquids well. ? Since the patient is doing well, we decided that the patient was ready to be discharged. The patient was given instructions to follow-up with me next week and to call my office for any fever over 101, persistent abdominal pain, nausea, vomiting, GERD, symptoms of DVT such as calf tenderness, or leg swelling, or pulmonary embolism such as chest pain or shortness of breath. The patient was also instructed to drink 40-60 ounces of liquids per day using the 1-ounce cups. The patient had been given prescriptions for Tylenol for pain, Zofran prn for nausea, and pantoprazole and carafate previously. The patient was encouraged to ambulate and use the incentive spirometer. The patient was allowed to shower, but no baths, and encouraged to stay active at home. All of these instructions were given to the patient personally. All questions were answered and the patient understood all instructions, the instructions were also given to the patient in print. Time Attestation Total time managing care of this patient today: 25 mintues. Discharge Coordination Time (in mins): 25 Quality: Safe Use of Opioids Does Pt have an Active Cancer Diagnosis on the Problem List?: No Quality: Stroke Does the patient have a stroke diagnosis?: No Physical Exam Vital Signs: Vital Signs: Last Vital Signs Temp 99.1 F 12/25/24 11:03 Pulse 88 12/25/24 11:03 Resp 16 12/25/24 11:03 BP 139/91 H 12/25/24 11:03 Pulse Ox 97 12/25/24 11:03 O2 Del Method Room Air 12/25/24 11:03 BMI result Body Mass Index 31.5 DS: Data Data Completed and Pending Pending studies at discharge: Pending at discharge 12/25/24 14:14 Surgical [PTH] Routine Discharge Plan Discharge Anticipated Discharge Date/Time: 12/26/24 10:00 Patient Disposition: Home, Self-Care Discharge Diagnosis: s/p laparoscopic sleeve gastrectomy Referrals: Christal Umaña MD [Primary Care Provider, Internal Medicine] - 1 Week Discharge Medications: Continued potassium chloride 20 mEq packet 20 meq PO BID Qty: 30 2RF lorazepam 0.5 mg tablet 0.5 mg PO DAILY PRN (Reason: anxiety) Mirena 20 mcg/24 hours (7 yrs) 52 mg intrauterine device 21 mcg intrauterine ONCE pantoprazole 40 mg tablet,delayed release (DR/EC) 40 mg PO DAILY Qty: 90 0RF sucralfate 100 mg/mL suspension 10 ml PO BID Qty: 600 2RF ondansetron 4 mg tablet,disintegrating 4 mg PO Q12H Qty: 20 0RF Rx Instructions: Only take one every 12 hours as needed if you have nausea Held cholecalciferol (vitamin D3) 25 mcg (1,000 unit) tablet 25 mcg PO DAILY Qty: 90 2RF Hold Instructions: Resume on 01/02/25. hydrochlorothiazide 25 mg tablet 25 mg PO QAM 90 Days Qty: 90 3RF Hold Instructions: Resume on 12/27/24. Check your blood pressure every morning as soon as you wake up and send it to Dr. De La Vega. Do no take the blood pressure medication if the blood pressure is below 120/70. Wait every day to hear back from Dr. De La Vega before you take the medication. thiamine HCl (vitamin B1) 100 mg tablet 100 mg PO DAILY Qty: 90 0RF Hold Instructions: Resume on 01/02/25. losartan 50 mg tablet 100 mg PO DAILY Hold Instructions: Resume on 12/27/24. Check your blood pressure every morning as soon as you wake up and send it to Dr. De La Vega. Do no take the blood pressure medication if the blood pressure is below 120/70. Wait every day to hear back from Dr. De La Vega before you take the medication. dicyclomine 20 mg tablet 20 mg PO TID PRN (Reason: Diarrhea) Hold Instructions: Resume on 01/02/25. multivitamin Tablet 1 tab PO DAILY Hold Instructions: Resume on 01/02/25. Discharge Orders: Discharge Order (Routine); Ordered 12/26/24 Ordered By: Niraj De La Vega Activity on Discharge: No heavy lifting Stand Alone Forms: Patient Portal Discharge page Print Language: Omani Care Plan Goals: weight loss Health Concerns: obesity Plan of Treatment: No tub baths, sex or returning to work until discussed at first post op appointment. No exercise, alcohol, tobacco or illegal drug use. Continue to use incentive spirometer hourly while awake. Walk in home for 5- 10 minutes every 2 hours during the first week. Follow all instructions in the bariatric handbook and call with any questions.Discharge Instructions 1. Please call your doctor or come back to the emergency room should any new symptoms arise. 2. You will receive a courtesy call from [facility] 24-48 hours after discharge. 3. Activity: abstain from alcohol, practice limited stair climbing, no bending, no driving, no exercise, no illicit substances, no lifting, no sex, no tub bath, no work. 4. Diet: continue as discussed with Dr. De La Vega. 5. Dressing Change/Wound Care: Your incision is covered by clear bandages and guaze underneath. If the area is tender, you may apply an ice pack for short intervals (no more than 20 minutes on, followed by at least 20 minutes off). Do not apply heat. Do not use creams, lotions, or topical antibiotics unless instructed to do so by your surgeon. These can cause infection or allergic reaction. 6. Call your doctor if: - Your temperature exceeds 101.5 F - You experience excessive pain or swelling - You have an unexpected reaction to medication - You have excessive bleeding - You experience continued vomiting/nausea - Your incision begins to separate - Your incision shows signs of infection such as increased redness, swelling, excessive pain, heat, or drainage (light blood or clear fluid is normal) 7. General instructions: No lifting greater than 5 lbs for 1 week and not more than 20lbs the next 3?weeks. No driving until seen at the office in 5-7 days after surgery. If you do not move your bowels in the next 2 days, please tell?Dr. De La Vega. Please walk around your home every hour or two to prevent blood clots from forming in your legs. You do not need to wake from sleeping to walk. Please sleep in a bed or couch to prevent kinking at the hips and knees. 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 You may shower, no hot tubs, baths or swimming pools.?Please follow the post op diet instructions you are?given by Dr De La Vega? and text me daily at 5-6pm for an update.?If you have any issues or concerns or questions please communicate this to him via t ext.? The Celebrate shakes have all of the bariatric vitamins you need if you consume these shakes. If you are drinking other protein shakes, you will need to purchase the Celebrate multivitamins and calcium that are available in the hospital gift shop on the first floor of the main hospital.??Do not take anything without first discussing with Dr De La Vega. Please make sure you are consuming at least 40 ounces of fluids per day starting the?day AFTER your discharge from the hospital. Always drink 1-2 ml per minute using the 5ml?syringe. If you drink faster you may experience?bloating,?gas pain, burping, nausea or heartburn. In that case please slow down your pace and use the syringe to?understand better the?proper?pace and volume of drinking. Do not hesitate to contact the office with any questions at . The patient's medical history has been reviewed and they are considered low risk for post op DVT and therefore DVT prophylaxis is not considered necessary. Travel after surgery was reviewed. The patient has not disclosed any travel plans during the first 30 days after surgery and they have been advised that within the first 30 days after surgery any bus, plane, train or car travel over 2 hours in duration is contraindicated due to the possibility of developing blood clots from immobility. Any travel, needs to include periods of ambulation of 10 minutes in duration every 2 hours.? The patient was instructed to discuss any plans for travel during this period with their bariatric surgeon. Assessment: stable s/p laparoscopic sleeve gastrectomy
[2024-12-25 15:21] LABS: Hematocrit 42.4 % (37.0-47.0); Hemoglobin 14.4 g/dl (12.0-16.0)
[2024-12-25 15:35] LABS: Anion Gap 15 (12-20); Blood Urea Nitrogen 9 mg/dL (9-16); Calcium 8.7 mg/dL (8.4-10.2); Carbon Dioxide 25 mmol/L (22-29); Chloride 103 mmol/L (96-108); Creatinine Clr Calc Pharmacy 101.5; Estimated Glomerular Filt Rate > 60; Glucose Random 124 mg/dL (60-115); Potassium 3.3 mmol/L (3.3-5.1); Sodium 140 mmol/L (135-145)
[2024-12-25] MEDS: Lactated Ringers 1,000 ML 100 ML IVCONT (17:15)
[2024-12-25] MEDS: KCl 20 mEq in 0.9 % Sodium ChL 20 MEQ/1,000 ML IV.SOLN 125 MEQ IVCONT (18:04)
[2024-12-25] MEDS: Acetaminophen 1,000 MG/100 ML PIGGYBACK 16.7 MG IV (21:37)
[2024-12-26] MEDS: HYDROmorphone HCl 0.5 MG/0.5 ML SYRINGE 0.25 MG IVPUSH (01:03)
[2024-12-26] MEDS: KCl 20 mEq in 0.9 % Sodium ChL 20 MEQ/1,000 ML IV.SOLN 125 MEQ IVCONT (01:07)
[2024-12-26 03:11] VITALS: BP 147/85; PULSE 80; RESP 18; TEMP 36.4; O2SAT 95
[2024-12-26] MEDS: Acetaminophen 1,000 MG/100 ML PIGGYBACK 16.7 MG IV (03:16)
[2024-12-26] MEDS: Pantoprazole Sodium 40 MG/10 ML VIAL IVPUSH (05:34)
[2024-12-26 06:12] LABS: MANUAL DIFF FLAG NO
[2024-12-26 06:22] LABS: Basophils Percent Auto 0.1 % (0-2); Hemoglobin 12.4 g/dl (12.0-16.0); Imm Gran Abs Auto 0.04 X10*3/uL (0.00-0.03); Imm Gran Pct Auto 0.4 % (0.0-0.4); Lymphocytes Absolute Auto 0.7 X10*3/uL (1.2-4.9); Lymphocytes Percent Auto 7.1 % (20-40); Mean Corpuscular HGB Conc 33.5 g/dl (31.0-35.0); Mean Corpuscular Hemoglobin 27.1 pg (27.0-33.0); Mean Platelet Volume 10.9 fL (9.4-12.3); Monocytes Absolute Auto 0.3 X10*3/uL (0.1-1.2); Monocytes Percent Auto 2.8 % (2-11); Neutrophils Absolute Auto 9.1 x10*3/uL (2.0-8.3); Neutrophils Percent Auto 89.6 % (45-73); Platelet Count 329 X10*3/uL (160-400); Red Blood Count 4.57 X10*6/uL (4.20-5.50); Red Cell Distribution Width 13.2 % (11.0-16.0); White Blood Count 10.1 X10*3/uL (4.8-10.8)
[2024-12-26 06:30] LABS: Anion Gap 13 (12-20); Blood Urea Nitrogen 8 mg/dL (9-16); Carbon Dioxide 22 mmol/L (22-29); Chloride 106 mmol/L (96-108); Creatinine Clr Calc Pharmacy 114.2; Estimated Glomerular Filt Rate > 60; Glucose Random 117 mg/dL (60-115); Sodium 137 mmol/L (135-145)
[2024-12-26 07:04] VITALS: BP 135/80; PULSE 79; RESP 18; TEMP 36.7; O2SAT 95
[2024-12-26] MEDS: Losartan Potassium 50 MG TABLET 100 MG PO (07:35)
--- NOTE | 2024-12-26 09:13 | HO.POSTANES ---
Post Anesthesia Evaluation Post Anesthesia Evaluation Date of Service: 12/26/24 Vital Signs: Vital Signs Temp Pulse Resp BP Pulse Ox O2 Del Method 12/26/24 07:04 98.1 F 79 18 135/80 95 Room Air 12/26/24 03:11 97.6 F 80 18 147/85 H 95 Room Air 12/25/24 23:30 98.0 F 83 18 135/81 95 Room Air Anesthesia: General Mental Status: Awake Pain Control: Satisfactory Nausea/Vomiting: None Hydration: Adequate Anesthesia-Related Issues: No Anes. Related Issues
[2024-12-26 09:49] VITALS: BP 138/74; PULSE 82; RESP 16; TEMP 36.8; O2SAT 97
--- NOTE | 2024-12-26 09:53 | MHC.CM.PN ---
Patient dc'd home self care via private transport prior to CM assessment.
== END 2024-12-26 09:50 | disposition home or self-care (01) | DRG 421 ==
LOC: HO.SSSA 14:51 → HO.S3 15:18
PROVIDERS: Physician Assistant Surgical; Admitting Provider Surgery; PCP Internal Medicine; Visit Provider Surgery
PROC: 0DB68Z3 Excision of Stomach, Via Natural or Artificial Opening Endoscopic, Vertical (ICD-10-PCS; CPT 43845; principal; 2024-12-25 13:10)
DX: E66.01 Morbid (severe) obesity due to excess calories (principal); K74.00 Hepatic fibrosis, unspecified; F41.9 Anxiety disorder, unspecified; K21.9 Gastro-esophageal reflux disease without esophagitis; I10 Essential (primary) hypertension; N39.3 Stress incontinence (female) (male); Z68.32 Body mass index [BMI] 32.0-32.9, adult; Z79.899 Other long term (current) drug therapy
CPT/HCPCS: 36415; 80048; 80053; 80061; 83036; 83525; 84443; 85014; 85018; 85025; 85610; 85730; 86140; 86850; 86900; 86901; 88304; 88305; 88307; 88342; A4649; C9145; J0131; J0690; J1100; J1171; J2003; J2250; J2405; J2470; J2704; J2795; J3010; J3480; J7120

== ENCOUNTER → 2024-12-25 10:48 | Outpatient (BNV) | payer OTHER, SELFPAY | PROVIDERS: Admitting Provider Surgery; PCP Internal Medicine; Visit Provider Surgery | DX: E66.811 Obesity, class 1 (principal); E66.09 Other obesity due to excess calories; Z68.34 Body mass index [BMI] 34.0-34.9, adult; Z68.32 Body mass index [BMI] 32.0-32.9, adult; F41.9 Anxiety disorder, unspecified; I10 Essential (primary) hypertension; K21.9 Gastro-esophageal reflux disease without esophagitis; N39.3 Stress incontinence (female) (male); K74.00 Hepatic fibrosis, unspecified; Z98.84 Bariatric surgery status | CPT/HCPCS: 43659; 43775; 99024; 99499 ==

== ENCOUNTER 2025-01-01 15:06 | Outpatient (AMB) | payer OTHER, SELFPAY ==
--- NOTE | 2025-01-01 15:00 | A.OFFWM_ITS ---
Intake Intake Visit Reasons: TV PO LSG 12/25/24 Allergies metronidazole (From Metrogel) Allergy (Intermediate, Verified 12/07/24 08:53) Rash [facility] Medical History Hiatal hernia Obesity Stress incontinence BRCA negative Left sided sciatica Kidney stone Left flank pain Urinary frequency Physical exam Weight loss Physical exam Abnormal surgical wound Preop cardiovascular exam Preoperative clearance Encounter for pre-operative cardiovascular clearance Dysuria Right tennis elbow History of uterine fibroid Chest congestion Essential hypertension Pernicious anemia B12 deficiency Hypovitaminosis D At high risk for breast cancer Anxiety Chronic GERD Family history of breast cancer Hypertension Surgical History History of esophagogastroduodenoscopy (EGD) H/O colonoscopy History of breast lift History of breast implant Hx of abdominoplasty History of mammogram History of removal of cyst History of tubal ligation Family History Mother Diabetes High blood pressure Breast cancer Cervical cancer Father Cancer Alzheimer disease Parkinsons disease Maternal Grandmother Breast cancer Social History Household Members: Significant Other Housing: House Are you a primary day care attendant to a significant other at home: No Do you presently have visiting nurse or other home services: No Alcohol intake: former Patient Tobacco Use Status: Never used Tobacco e-Cigarette/Vaping Use: Never Used Second Hand Smoke Exposure: No Substance Use Type: Marijuana service: No Current occupational status: employed Current occupational exposures/hazards: No Cognitive needs: No Hearing needs: No Vision needs: No Female Reproductive History Menstrual Age of Menarche: 14 Behavioral Health Assessment Weight Management Therapy Therapy Notes Details Subjective: PT had weight loss surgery on 12/25/2024. Weight on day of surgery was 166Lbs and recent as of today was 157Lbs. Patient denies any pain after being d/c from hospital or difficulties with recovery. She reports having a hard time drinking the shakes due to the sweetness. PT reports her mood has been up and down , as she has had some anxiety post-op she was not anticipating. Her fiance and her son have been her biggest support. Denies any hunger but has had food thoughts. He took 1 week off from work and is returning tomorrow. Objective: The patient presents for a behavioral health post-operative follow-up visit. A guided emotional check-in was conducted to assess her current functioning, recovery, mood, and emotional state. Psychoeducation was provided on the emotional and psychological adjustments commonly experienced after bariatric surgery. We also focused on distinguishing between hunger and cravings or food thoughts, exploring possible reasons for these experiences, and strategies to work on her mindset. Emphasis was placed on becoming mindful of her physical and mental needs during these times while staying on track. The PHQ-9 was administered to screen for symptoms of depression. The importance of adhering to the Weight Management Program (WMP) providers' instructions was emphasized, including the pace of drinking and following the meal and exercise plan. Tips and recommendations for long-term success were also discussed. Program resources were provided, and the patient was invited to join our Facebook group to stay informed about ongoing events and activities. Assessment/Response: * Mental status: WNL * Risk reported/identified: None Food/Weight/Diet Expectations of change goal is to lose 3 Lbs at week. Questionnaires PHQ-9 Over the last 2 weeks, how often have you been bothered by any of the following problems? 1. Little interest or pleasure in doing things: not at all 2. Feeling down, depressed, or hopeless: several days 3. Trouble falling or staying asleep, or sleeping too much: not at all 4. Feeling tired or having little energy: several days 5. Poor appetite or overeating: not at all 6. Feeling bad about yourself - or that you are a failure or have let yourself or your family down: not at all 7. Trouble concentrating on things, such as reading the newspaper or watching television: not at all 8. Moving or speaking so slowly that other people could have noticed. Or the opposite - being so fidgety or restless that you have been moving around a lot more than usual: not at all 9. Thoughts that you would be better off or of hurting yourself in some way: not at all Total score: 2 Depression Screening Interpretation: Negative Depression Screening Done: Yes 69086 - PHQ-9 Billing: Yes Source: Developed by Larissa Root.W. Alejandro, Wing Ramírez and colleagues, with an educational ifeoma from [employer]. Assessment & Plan Assessment & Plan (1) Anxiety: Code(s): F41.9 - Anxiety disorder, unspecified (2) Status post bariatric surgery: Code(s): Z98.84 - Bariatric surgery status Plan PT reports feeling well overall. She will determine the need for a follow-up visit after returning to work tomorrow. Encouraged participation in the peer support group and recommended joining the Facebook support group for post-op patients. Next appointment: To be determined (TBD). Telehealth Telehealth Telehealth Platform: Telephone Location of provider rendering services: practice address Location of patient: address on file Patient Identification confirmed using: Name, : Yes Telehealth method: voice only Patient verbally consented to treatment: Yes Patient verbally consented to billing insurance company: Yes Patient informed of any privacy concerns related to visit: Yes Minutes spent on Phone/Video with Pt.: 30 Coding Level of Care Code Established Pt Tele Psytx 30 mins (01325) Patient Type Established Diagnoses Anxiety F41.9 Status post bariatric surgery Z98.84 Additional Codes PHQ-9 - 57242 - PHQ-9 Billing: Yes ([id number]) Time Spent (min) 30
== END 2025-01-01 15:37 | disposition home or self-care (01) ==
LOC: HO.HBST 15:06
PROVIDERS: PCP Internal Medicine; Visit Provider Counselor Mental Health
DX: F41.9 Anxiety disorder, unspecified (principal); Z98.84 Bariatric surgery status
CPT/HCPCS: 90832

== ENCOUNTER 2025-01-03 12:52 | Outpatient (AMB) | payer OTHER, SELFPAY ==
--- NOTE | 2025-01-03 13:02 | MHC.NURWM ---
Intake VS Expanded 01/03/25 13:10 BP 127/79 Blood Pressure Location Rt brachial Blood Pressure Position Sitting Pulse 86 Pulse Source Pulse Oximeter Temp 96 F L Temperature Source Temporal Artery Scan Pulse Oximetry 96 Oxygen Delivery Method Room Air Height 5 ft 1.5 in Weight 155 lb 12.8 oz BMI 29.0 Body Fat % 39.9 Body Fat Mass 62.2 Fat Free Mass 93.4 Visceral Fat Rating 8.0 Body Water % 42.8 Body Water Mass 66.6 Muscle Mass/Score 88.6 Basal Metabolic Rate/Score 1,305 Intake Visit Reasons: (OV) PO LSG 12/25/24 Allergies metronidazole (From Metrogel) Allergy (Intermediate, Verified 12/07/24 08:53) Rash Coding
[2025-01-03 13:10] VITALS: BP 127/79; PULSE 86; TEMP 35.5; O2SAT 96; BMI 29.0
--- NOTE | 2025-01-03 13:31 | MHC.OFFVISWM ---
VS Expanded 01/03/25 13:10 01/03/25 13:32 BP 127/79 Blood Pressure Location Rt brachial Blood Pressure Position Sitting Pulse 86 Pulse Source Pulse Oximeter Temp 96 F L Temperature Source Temporal Artery Scan Pulse Oximetry 96 Oxygen Delivery Method Room Air Height 5 ft 1.5 in Weight 155 lb 12.8 oz BMI 29.0 29.0 Body Fat % 39.9 Body Fat Mass 62.2 Fat Free Mass 93.4 Visceral Fat Rating 8.0 Body Water % 42.8 Body Water Mass 66.6 Muscle Mass/Score 88.6 Basal Metabolic Rate/Score 1,305 Intake Visit Reasons: (OV) PO LSG 12/25/24 Allergies metronidazole (From Metrogel) Allergy (Intermediate, Verified 01/03/25 13:33) Rash Medication List - Last Reconciled 01/03/25 by ANGELA Garcia dicyclomine 20 mg PO TID PRN Held on 12/26/24. Instructions: Resume on 01/02/25. hydrochlorothiazide 25 mg PO QAM 90 days Held on 12/26/24. Instructions: Resume on 12/27/24. Check your blood pressure every morning as soon as you wake up and send it to Dr. De La Vega. Do no take the blood pressure medication if the blood pressure is below 120/70. Wait every day to hear back from Dr. De La Vega before you take the medication. levonorgestrel (Mirena) 21 mcg intrauterine ONCE lorazepam 0.5 mg PO DAILY PRN losartan 100 mg PO DAILY Held on 12/26/24. Instructions: Resume on 12/27/24. Check your blood pressure every morning as soon as you wake up and send it to Dr. De La Vega. Do no take the blood pressure medication if the blood pressure is below 120/70. Wait every day to hear back from Dr. De La Vega before you take the medication. ondansetron 4 mg PO Q12H pantoprazole 40 mg PO DAILY potassium chloride 20 mEq PO BID sucralfate 10 mL PO BID thiamine HCl (vitamin B1) 100 mg PO DAILY Held on 12/26/24. Instructions: Resume on 01/02/25. HPI Comments Details: Pt is s/p LSG 12/25/2024. No pain. Having nausea with shakes. Taking 2 Celebrate shakes, 12oz each 4 scoops total. Hydration is adequate. Pt checking BP, some days has to take half of both meds (losartan and HCTZ)- maybe once every 2-3 day.s [facility] Medical History (Updated 01/03/25 @ 00:01 by Brayan Verduzco) Abnormal EKG Hypokalemia Encounter for well woman exam with routine gynecological exam Severe obesity with body mass index (BMI) of 36.0 to 36.9 with serious comorbidity Pre-op examination Hiatal hernia Obesity Stress incontinence BRCA negative Left sided sciatica Kidney stone Left flank pain Urinary frequency Physical exam Weight loss Physical exam Abnormal surgical wound Preop cardiovascular exam Preoperative clearance Encounter for pre-operative cardiovascular clearance Dysuria Right tennis elbow History of uterine fibroid Chest congestion Essential hypertension Pernicious anemia B12 deficiency Hypovitaminosis D At high risk for breast cancer Anxiety Chronic GERD Family history of breast cancer Hypertension Surgical History (Updated 01/03/25 @ 13:33 by Debi Michaels CMA) S/P gastric sleeve procedure History of esophagogastroduodenoscopy (EGD) H/O colonoscopy History of breast lift History of breast implant Hx of abdominoplasty History of mammogram History of removal of cyst History of tubal ligation Family History Mother Diabetes High blood pressure Breast cancer Cervical cancer Father Cancer Alzheimer disease Parkinsons disease Maternal Grandmother Breast cancer Social History Household Members: Significant Other Housing: House Are you a primary managed care liaison to a significant other at home: No Do you presently have visiting nurse or other home services: No Alcohol intake: former Patient Tobacco Use Status: Never used Tobacco e-Cigarette/Vaping Use: Never Used Second Hand Smoke Exposure: No Substance Use Type: Marijuana service: No Current occupational status: employed Current occupational exposures/hazards: No Cognitive needs: No Hearing needs: No Vision needs: No Female Reproductive History Menstrual Age of Menarche: 14 Physical Exam Vital Signs: Last Vital Signs Temp 96 F L 01/03/25 13:10 Pulse 86 01/03/25 13:10 BP 127/79 01/03/25 13:10 Pulse Ox 96 01/03/25 13:10 Oxygen Delivery Method Room Air 01/03/25 13:10 BMI result Body Mass Index 29.0 Const General: cooperative, comfortable and no acute distress Orientation/consciousness: patient oriented x3 GI Other: soft, nontender, nondistended, steri-strips c/d/i Neuro General: patient oriented x3 Assessment & Plan Assessment & Plan (1) Obesity: Code(s): E66.9 - Obesity, unspecified Category: Medical Qualifiers: Body mass index: BMI 34.0-34.9 Obesity classification: adult class 1 (BMI 30 - 34.9) Obesity type: due to excess calories Serious obesity comorbidity presence: with serious comorbidity Qualified Code(s): E66.811 - Obesity, class 1; E66.09 - Other obesity due to excess calories; Z68.34 - Body mass index [BMI] 34.0-34.9, adult (2) S/P laparoscopic sleeve gastrectomy: Code(s): Z98.84 - Bariatric surgery status Category: Surgical Plan May shower tomorrow but no bath or submersion of abdomen in water. May start exercise in 2 days.? No abdominal exercises x 6 weeks. Abdominal binder for the next 2 weeks with activity or exercise. Continue meal plan per Dr Ben Arireta to change to Isopure 4 scoops per day. Reviewed pantoprazole and carafate dosing. Reminded of the pace of drinking 2 mL/min or 1oz per 15 min. Continue to monitor BP at home, dose according to parameters given by Dr. Saldana. Will be emailed link for post op video for review.
[2025-01-03 13:32] VITALS: BMI 29.0
== END 2025-01-03 13:49 | disposition home or self-care (01) ==
LOC: HO.HBS 12:53
PROVIDERS: PCP Internal Medicine; Visit Provider Physician Assistant Surgical
DX: E66.811 Obesity, class 1 (principal); Z68.34 Body mass index [BMI] 34.0-34.9, adult; Z90.3 Acquired absence of stomach [part of]; Z98.84 Bariatric surgery status
CPT/HCPCS: 99024

== ENCOUNTER 2025-01-22 12:49 | Outpatient (AMB) | payer OTHER, SELFPAY ==
--- NOTE | 2025-01-22 12:57 | MHC.OFFVISWM ---
VS Expanded 01/22/25 13:21 Height 5 ft 1.5 in Weight 154 lb 6.4 oz BMI 28.7 Body Fat % 38.6 Body Fat Mass 59.6 Fat Free Mass 94.8 Visceral Fat Rating 8.0 Body Water % 43.7 Body Water Mass 67.4 Muscle Mass/Score 90.0 Basal Metabolic Rate/Score 1,316 Intake Visit Reasons: (OV) PO LSG 12/25/24 [employer] Required: No Allergies metronidazole (From Metrogel) Allergy (Intermediate, Verified 01/03/25 13:33) Rash Medication List - Last Reconciled 01/22/25 by ANGELA Case dicyclomine 20 mg PO TID PRN Held on 12/26/24. Instructions: Resume on 01/02/25. hydrochlorothiazide 25 mg PO QAM 90 days Held on 12/26/24. Instructions: Resume on 12/27/24. Check your blood pressure every morning as soon as you wake up and send it to Dr. De La Vega. Do no take the blood pressure medication if the blood pressure is below 120/70. Wait every day to hear back from Dr. De La Vega before you take the medication. levonorgestrel (Mirena) 21 mcg intrauterine ONCE lorazepam 0.5 mg PO DAILY PRN losartan 100 mg PO DAILY Held on 12/26/24. Instructions: Resume on 12/27/24. Check your blood pressure every morning as soon as you wake up and send it to Dr. De La Vega. Do no take the blood pressure medication if the blood pressure is below 120/70. Wait every day to hear back from Dr. De La Vega before you take the medication. pantoprazole 40 mg PO DAILY potassium chloride 20 mEq PO BID sucralfate 10 mL PO BID thiamine HCl (vitamin B1) 100 mg PO DAILY Held on 12/26/24. Instructions: Resume on 01/02/25. HPI Comments Details: This?a?49?yo female who is s/p LSG without hiatal hernia repair on?12/25/2024. Presents for 1 month post op visit. Weight today is 154.4 pounds, with a BMI of 28.7. There has been a 31.6 pound weight loss,(initial weight 186 pounds) since starting the program on 09/27/2024 reflecting a 16.9% total body weight loss and a weight loss of 15.6 pounds since surgery (operative weight 170.5 pounds) reflecting a 9.1% TBWL since surgery. No complaints of nausea, emesis, abdominal pain or reflux. Reports infrequent but normal bowel movements every 2-3 days and uses stool softeners regularly. Present meal plan includes: isopure infusion 1/2 scoop in 8 oz water from 8-10, 11-1 isopure infusion 1 scoop in 8 oz water 2-4 fit crunch bar 5-8 Drinking about 40 oz water Exercise routine includes: stationary bike at home 4 x per week, resistance 2-8, 100 calories [facility] Medical History (Updated 01/03/25 @ 00:01 by Brayan Verduzco) Abnormal EKG Hypokalemia Encounter for well woman exam with routine gynecological exam Severe obesity with body mass index (BMI) of 36.0 to 36.9 with serious comorbidity Pre-op examination Hiatal hernia Obesity Stress incontinence BRCA negative Left sided sciatica Kidney stone Left flank pain Urinary frequency Physical exam Weight loss Physical exam Abnormal surgical wound Preop cardiovascular exam Preoperative clearance Encounter for pre-operative cardiovascular clearance Dysuria Right tennis elbow History of uterine fibroid Chest congestion Essential hypertension Pernicious anemia B12 deficiency Hypovitaminosis D At high risk for breast cancer Anxiety Chronic GERD Family history of breast cancer Hypertension Surgical History (Updated 01/03/25 @ 13:33 by Debi Michaels CMA) S/P gastric sleeve procedure History of esophagogastroduodenoscopy (EGD) H/O colonoscopy History of breast lift History of breast implant Hx of abdominoplasty History of mammogram History of removal of cyst History of tubal ligation Family History Mother Diabetes High blood pressure Breast cancer Cervical cancer Father Cancer Alzheimer disease Parkinsons disease Maternal Grandmother Breast cancer Social History Household Members: Significant Other Housing: House Are you a primary respiratory care instructor to a significant other at home: No Do you presently have visiting nurse or other home services: No Alcohol intake: former Patient Tobacco Use Status: Never used Tobacco e-Cigarette/Vaping Use: Never Used Second Hand Smoke Exposure: No Substance Use Type: Marijuana service: No Current occupational status: employed Current occupational exposures/hazards: No Cognitive needs: No Hearing needs: No Vision needs: No Female Reproductive History Menstrual Age of Menarche: 14 Assessment & Plan Assessment & Plan (1) S/P laparoscopic sleeve gastrectomy: Code(s): Z98.84 - Bariatric surgery status Category: Surgical Plan: Discussed the importance of increasing her exercise portion of her plan. Her meal plan as balance and she is tolerating this well. She was encouraged to increase exercise from 4 days a week 100 calories to 7 days a week 300 calories burned per day. She certainly can try to burn 400 calories over 5 days or 2000 calories total per week, or more. We will have her return to the office in a proximally 1 month
[2025-01-22 13:21] VITALS: BMI 28.7
== END 2025-01-22 13:39 | disposition home or self-care (01) ==
PROVIDERS: PCP Internal Medicine; Visit Provider Physician Assistant Surgical
DX: Z98.84 Bariatric surgery status (principal)
CPT/HCPCS: 99024

== ENCOUNTER 2025-02-06 12:34 | Outpatient (AMB) | payer OTHER, SELFPAY ==
[2025-02-06 12:43] VITALS: BP 122/70; BMI 28.4
--- NOTE | 2025-02-06 12:43 | MHC.PC.OV ---
Vital Signs 02/06/25 12:43 Height 5 ft 1.5 in Weight 153 lb BMI 28.4 BP 122/70 Blood Pressure Location Lt brachial Position Sitting Intake Visit Reasons: follow up Tie Bucker Required: No Accompanied by: Self / Same As Patient Allergies metronidazole (From Metrogel) Allergy (Intermediate, Verified 02/06/25 12:50) Rash Medication List - Last Reconciled 02/06/25 by Chrisatl Jimenez MD dicyclomine 20 mg PO TID PRN Held on 12/26/24. Instructions: Resume on 01/02/25. hydrochlorothiazide 25 mg PO QAM 90 days Held on 12/26/24. Instructions: Resume on 12/27/24. Check your blood pressure every morning as soon as you wake up and send it to Dr. De La Vega. Do no take the blood pressure medication if the blood pressure is below 120/70. Wait every day to hear back from Dr. De La Vega before you take the medication. levonorgestrel (Mirena) 21 mcg intrauterine ONCE lorazepam 0.5 mg PO DAILY PRN losartan 100 mg PO DAILY Held on 12/26/24. Instructions: Resume on 12/27/24. Check your blood pressure every morning as soon as you wake up and send it to Dr. De La Vega. Do no take the blood pressure medication if the blood pressure is below 120/70. Wait every day to hear back from Dr. De La Vega before you take the medication. pantoprazole 40 mg PO DAILY sucralfate 10 mL PO BID thiamine HCl (vitamin B1) 100 mg PO DAILY Held on 12/26/24. Instructions: Resume on 01/02/25. Tobacco use date assessed: 09/17/24 Dental Screening Dental Screen Date: 09/17/24 HPI HPI Comments History of Present Illness Details The patient is a 49-year-old female presenting with hypertension management and follow-up on recent blood work findings. She underwent gastric sleeve surgery on December 25 and has been experiencing gradual weight loss since then, initially losing 20 pounds prior to the surgery and an additional 10 pounds in the first week post-surgery, with a continued loss of 1-2 pounds weekly thereafter. Her blood pressure has been stable, and she uses hydrochlorothiazide and losartan as needed, approximately twice a week, monitoring her blood pressure daily and only taking medication if necessary, as advised by Dr. Estrada. Recent blood work indicated elevated liver enzymes and low calcium levels, with an ultrasound prior to surgery revealing gallstones, but no surgical intervention was deemed necessary due to the absence of symptoms. The patient denies experiencing chest pain or dyspnea and reports feeling generally well. [facility] Medical History (Updated 02/06/25 @ 13:02 by Christal Jimenez MD) Abnormal EKG Hypokalemia Encounter for well woman exam with routine gynecological exam Severe obesity with body mass index (BMI) of 36.0 to 36.9 with serious comorbidity Pre-op examination Hiatal hernia Obesity Stress incontinence BRCA negative Left sided sciatica Kidney stone Left flank pain Urinary frequency Physical exam Weight loss Physical exam Abnormal surgical wound Preop cardiovascular exam Preoperative clearance Encounter for pre-operative cardiovascular clearance Dysuria Right tennis elbow History of uterine fibroid Chest congestion Essential hypertension Pernicious anemia B12 deficiency Hypovitaminosis D At high risk for breast cancer Anxiety Chronic GERD Family history of breast cancer Hypertension Surgical History S/P gastric sleeve procedure History of esophagogastroduodenoscopy (EGD) H/O colonoscopy History of breast lift History of breast implant Hx of abdominoplasty History of mammogram History of removal of cyst History of tubal ligation Family History Mother Diabetes High blood pressure Breast cancer Cervical cancer Father Cancer Alzheimer disease Parkinsons disease Maternal Grandmother Breast cancer Social History Household Members: Significant Other Housing: House Are you a primary women's health care nurse practitioner to a significant other at home: No Do you presently have visiting nurse or other home services: No Alcohol intake: former Patient Tobacco Use Status: Never used Tobacco e-Cigarette/Vaping Use: Never Used Second Hand Smoke Exposure: No Substance Use Type: Marijuana service: No Current occupational status: employed Current occupational exposures/hazards: No Cognitive needs: No Hearing needs: No Vision needs: No Female Reproductive History Menstrual Age of Menarche: 14 Questionnaire Thrive Questionnaire Date Thrive assessed: 09/15/24 ROSIE-7 AMB Questionnaire ROSIE-7 Date ROSIE - 7 assessed: 09/17/24 Source: Developed by Drs. Wilbert Schrader, Larissa Allen, Wing Ramírez and colleagues, with an educational ifeoma from [employer]. Review of Systems Const All systems reviewed & are unremarkable except as noted in HPI and below Card Denies chest pain at rest, Denies chest pain with activity, Denies edema, Denies irregular heart rhythm, Denies claudication, Denies dyspnea, Denies dyspnea on exertion, Denies orthopnea, Denies paroxysmal nocturnal dyspnea and Denies slow heart rate Resp Denies cough, Denies dyspnea and Denies dyspnea on exertion GI Denies abdominal pain, Denies change in bowel habits, Denies excessive flatus, Denies nausea and Denies vomiting Denies urinary incontinence, Denies urinary hesitancy and Denies urinary urgency Musc Denies atrophy, Denies deformity and Denies limited range of motion Physical exam (Primary Care) Vital Signs: Last Vital Signs BP 122/70 02/06/25 12:43 BMI result Body Mass Index 28.4 Tobacco/Smoking Status: Tobacco use Status Tobacco use date assessed 09/17/24 02/06/25 12:47 Patient Tobacco Use Status Never used Tobacco 02/06/25 12:47 e-Cigarette/Vaping Use Never Used 02/06/25 12:47 Thrive Assessment: Date of Thrive Assessment Date Thrive assessed 09/15/24 02/06/25 12:47 Resp Effort & Inspection: normal respiratory effort Auscultation: clear to auscultation bilaterally Cardio Jugular venous distension: no JVD Rate: regular rate Rhythm: regular rhythm Heart sounds: S1 normal heart sound present and S2 normal heart sound present Extrem General: Yes full ROM Coding Level of Care Code Est Pt Level 4 (73332) Complex EM visit Add On G2211 Diagnoses Essential hypertension I10 Chronic GERD K21.9 Transaminitis R74.01 Hypocalcemia E83.51 Time Spent (min) 23 Assessment & Plan Assessment & Plan (1) Essential hypertension: Code(s): I10 - Essential (primary) hypertension Category: Medical (2) Chronic GERD: Code(s): K21.9 - Gastro-esophageal reflux disease without esophagitis Category: Medical (3) Transaminitis: Code(s): R74.01 - Elevation of levels of liver transaminase levels Category: Medical (4) Hypocalcemia: Code(s): E83.51 - Hypocalcemia Category: Medical Plan The plan includes monitoring the patient's blood pressure regularly and continuing the use of hydrochlorothiazide and losartan as needed, with re-evaluation of liver enzymes and calcium levels to assess any changes since the last blood work. The patient should continue with her current weight management strategy post-gastric sleeve surgery, ensuring gradual and sustained weight loss, and no surgical intervention is required for gallstones at this time, given the absence of symptoms. Patient was informed and verbally consented to the use of an ambient scribe for clinic note documentation during this visit. Orders: Orders Phosphorus Today E83.51 - Hypocalcemia Comprehensive Met. Panel Today R74.01 - Elevation of levels of liver transaminase levels Parathyroid Hormone Intact Today E83.51 - Hypocalcemia Calcium, Ionized Today E83.51 - Hypocalcemia Vitamin D 25-OH Total Today E55.9 - Vitamin D deficiency, unspecified, E83.51 - Hypocalcemia Patient Instructions: - Monitor blood pressure daily and take medication as needed. - Continue with current weight management strategy. - Follow up for re-evaluation of liver enzymes and calcium levels.
== END 2025-02-06 13:00 | disposition home or self-care (01) ==
LOC: HO.HMCH 12:34
PROVIDERS: PCP Internal Medicine; Visit Provider Internal Medicine
DX: I10 Essential (primary) hypertension (principal); K21.9 Gastro-esophageal reflux disease without esophagitis; R74.01 Elevation of levels of liver transaminase levels; E83.51 Hypocalcemia

== ENCOUNTER 2025-02-06 12:34 | Outpatient (REF) | payer OTHER, SELFPAY ==
[2025-02-06 13:39] LABS: MANUAL DIFF FLAG NO
[2025-02-06 14:37] LABS: Hematocrit 41.5 % (37.0-47.0); Hemoglobin 13.9 g/dl (12.0-16.0); Imm Gran Abs Auto 0.02 X10*3/uL (0.00-0.03); Imm Gran Pct Auto 0.4 % (0.0-0.4); Lymphocytes Absolute Auto 1.7 X10*3/uL (1.2-4.9); Mean Corpuscular HGB Conc 33.5 g/dl (31.0-35.0); Mean Corpuscular Hemoglobin 26.9 pg (27.0-33.0); Mean Corpuscular Volume 80.4 fL (80.0-98.0); NRBC Abs Auto 0.000 X10*3/uL (0.0-0.012); NRBC Pct Auto 0.0 /100WBC (0.0-0.2); Platelet Count 368 X10*3/uL (160-400); Red Blood Count 5.16 X10*6/uL (4.20-5.50); White Blood Count 5.1 X10*3/uL (4.8-10.8)
[2025-02-06 15:12] LABS: Parathyroid Hormone Intact 90.3 pg/mL (8.7-77.1)
[2025-02-06 15:44] LABS: Folate 10.0 ng/mL (> or = 4.0); Vitamin B12 782 pg/mL (200-900)
[2025-02-06 16:03] LABS: Alanine Aminotransferase 38 U/L (0-31); Albumin Level 4.5 g/dL (3.5-5.0); Alkaline Phosphatase 75 U/L (39-117); Anion Gap 12 (12-20); Aspartate Amino Transferase 32 U/L (5-31); Blood Urea Nitrogen 8 mg/dL (9-16); Calcium 9.3 mg/dL (8.4-10.2); Carbon Dioxide 30 mmol/L (22-29); Chloride 105 mmol/L (96-108); Estimated Glomerular Filt Rate > 60; Potassium 2.7 mmol/L (3.3-5.1); Sodium 144 mmol/L (135-145); Total Protein 7.4 g/dL (6.5-8.0)
[2025-02-12 17:38] LABS: Calcium, Ionized 5.1 mg/dL (4.7-5.5)
== END 2025-02-06 12:35 | disposition home or self-care (01) ==
LOC: HO.LAB 12:34
PROVIDERS: PCP Internal Medicine; Visit Provider Internal Medicine
DX: E53.8 Deficiency of other specified B group vitamins (principal); E55.9 Vitamin D deficiency, unspecified; D64.9 Anemia, unspecified; I10 Essential (primary) hypertension; K21.9 Gastro-esophageal reflux disease without esophagitis; R74.01 Elevation of levels of liver transaminase levels
CPT/HCPCS: 36415; 80053; 82306; 82330; 82607; 82746; 83970; 84100; 85025

== ENCOUNTER 2025-02-22 13:10 | Outpatient (AMB) | payer OTHER, SELFPAY ==
--- NOTE | 2025-02-22 10:35 | A.OFFVIS_ITS ---
VS Expanded 02/22/25 10:36 Height 5 ft 1.5 in Weight 147 lb BMI 27.3 Body Fat % 34.5 Body Fat Mass 50.6 Fat Free Mass 96.4 Visceral Fat Rating 10 Body Water % 45 Body Water Mass 66.2 Muscle Mass/Score 90.4 Basal Metabolic Rate/Score 1,312 Intake Visit Reasons: tv PO LSG 12/25/24 Allergies metronidazole (From Metrogel) Allergy (Intermediate, Verified 02/06/25 12:50) Rash HPI Comments Details: This?a?49?yo female who is s/p LSG without hiatal hernia repair on?12/25/2024. Presents for 2 month post op visit. Weight today is 147 pounds, with a BMI of 27.3. There has been a 39 pound weight loss,(initial weight 186 pounds) since starting the program on 09/27/2024 reflecting a 20.9% total body weight loss and a weight loss of 23.5 pounds since surgery (operative weight 170.5 pounds) reflecting a 13.7% TBWL since surgery. No complaints of nausea, emesis, abdominal pain or reflux. Reports infrequent but normal bowel movements every 2- 3 days and uses stool softeners regularly. She states she is feeling great. sister had a stroke and she visits her daily Present meal plan includes: celebrate rebuild 1/2 scoop in 8 oz almond milk from 7-9, (states she drinks this until 12 due to busy work) celebrate bar 10-12 (often skips) 1/2 scoop in 8 oz water 1-3 (waits until 3-4 then throws out the rest) bar 4-6 meal 3 forks chicken or fish and 3 of veg Drinking about 40 oz water Exercise routine includes: joined [employer], goes on weekends, 200-300 calories each day. stationary bike at home 4 x per week, resistance 2-8, 100 calories [facility] Medical History (Updated 02/06/25 @ 16:26 by Christal Jimenez MD) Hypokalemia Abnormal EKG Encounter for well woman exam with routine gynecological exam Severe obesity with body mass index (BMI) of 36.0 to 36.9 with serious comorbidity Pre-op examination Hiatal hernia Obesity Stress incontinence BRCA negative Left sided sciatica Kidney stone Left flank pain Urinary frequency Physical exam Weight loss Physical exam Abnormal surgical wound Preop cardiovascular exam Preoperative clearance Encounter for pre-operative cardiovascular clearance Dysuria Right tennis elbow History of uterine fibroid Chest congestion Essential hypertension Pernicious anemia B12 deficiency Hypovitaminosis D At high risk for breast cancer Anxiety Chronic GERD Family history of breast cancer Hypertension Surgical History S/P gastric sleeve procedure History of esophagogastroduodenoscopy (EGD) H/O colonoscopy History of breast lift History of breast implant Hx of abdominoplasty History of mammogram History of removal of cyst History of tubal ligation Family History Mother Diabetes High blood pressure Breast cancer Cervical cancer Father Cancer Alzheimer disease Parkinsons disease Maternal Grandmother Breast cancer Social History Household Members: Significant Other Housing: House Are you a primary hospice care consultant to a significant other at home: No Do you presently have visiting nurse or other home services: No Alcohol intake: former Patient Tobacco Use Status: Never used Tobacco e-Cigarette/Vaping Use: Never Used Second Hand Smoke Exposure: No Substance Use Type: Marijuana service: No Current occupational status: employed Current occupational exposures/hazards: No Cognitive needs: No Hearing needs: No Vision needs: No Female Reproductive History Menstrual Age of Menarche: 14 Telehealth Telehealth Telehealth Platform: Telephone Location of provider rendering services: practice address Location of patient: address on file Patient Identification confirmed using: Name, : Yes Telehealth method: voice only Patient verbally consented to treatment: Yes Patient verbally consented to billing insurance company: Yes Patient informed of any privacy concerns related to visit: Yes Minutes spent on Phone/Video with Pt.: 15 Assessment & Plan Assessment & Plan (1) S/P laparoscopic sleeve gastrectomy: Code(s): Z98.84 - Bariatric surgery status Category: Surgical Plan: Patient was encouraged to follow the meal plan exactly. If she is having difficulty with this to discuss it with Dr. De La Vega who is managing her meal plan. Additionally, talked about using her exercise equipment at home for a goal of 300 calories per day. Discussed the negative outcome from not following the meal plan. We will have her return to the office in 4-6 weeks.
[2025-02-22 10:36] VITALS: BMI 27.3
== END 2025-02-22 13:33 | disposition home or self-care (01) ==
LOC: HO.HBS 13:10
PROVIDERS: PCP Internal Medicine; Visit Provider Physician Assistant Surgical
DX: Z98.84 Bariatric surgery status (principal)
CPT/HCPCS: 99024

== ENCOUNTER 2025-03-29 09:45 | Outpatient (AMB) | payer OTHER, SELFPAY ==
--- NOTE | 2025-03-29 09:34 | A.OFFVIS_ITS ---
VS Expanded 03/29/25 09:35 Height 5 ft 1.5 in Weight 142 lb 4 oz BMI 26.4 Intake Visit Reasons: TV PO LSG 12/25/24 Allergies metronidazole (From Metrogel) Allergy (Intermediate, Verified 02/06/25 12:50) Rash Medication List - Last Reconciled 03/29/25 by ANGELA Garcia dicyclomine 20 mg PO TID PRN Held on 12/26/24. Instructions: Resume on 01/02/25. hydrochlorothiazide 25 mg PO QAM 90 days Held on 12/26/24. Instructions: Resume on 12/27/24. Check your blood pressure every morning as soon as you wake up and send it to Dr. De La Vega. Do no take the blood pressure medication if the blood pressure is below 120/70. Wait every day to hear back from Dr. De La Vega before you take the medication. levonorgestrel (Mirena) 21 mcg intrauterine ONCE lorazepam 0.5 mg PO DAILY PRN 30 days losartan 100 mg PO DAILY Held on 12/26/24. Instructions: Resume on 12/27/24. Check your blood pressure every morning as soon as you wake up and send it to Dr. De La Vega. Do no take the blood pressure medication if the blood pressure is below 120/70. Wait every day to hear back from Dr. De La Vega before you take the medication. thiamine HCl (vitamin B1) 100 mg PO DAILY Held on 12/26/24. Instructions: Resume on 01/02/25. HPI Comments Details: This?is a?50?yo F who is s/p LSG 12/25/2024. Presents for 3mo post op visit. Weight lost of 4.6lbs since last OV 1mo ago. No complaints of nausea, emesis, abdominal pain or reflux, or constipation. She has not communicated with Dr Les yarbrough. She feels very comfortable at this weight. She is a size 4 in pants. Completed PPI and carafate. Went on vacation and ate off plan, had some reflux. Present meal plan includes: 2 Celebrate bars per day- likes these meal 3-4 forks chicken or fish and 3 of veg Drinking about 40 oz water ran out of vitamins -occasional cheat meal -will have a high protein waffle for breakfast Exercise routine includes: joined [employer], goes on 3x week, 200-300 calories each day. stationary bike at home 4 x per week, resistance 2-8, 100 calories [facility] Medical History (Updated 03/29/25 @ 09:39 by ANGELA Garcia) Hypokalemia Abnormal EKG Encounter for well woman exam with routine gynecological exam Severe obesity with body mass index (BMI) of 36.0 to 36.9 with serious comorbidity Pre-op examination Hiatal hernia Obesity Stress incontinence BRCA negative Left sided sciatica Kidney stone Left flank pain Urinary frequency Physical exam Weight loss Physical exam Abnormal surgical wound Preop cardiovascular exam Preoperative clearance Encounter for pre-operative cardiovascular clearance Dysuria Right tennis elbow History of uterine fibroid Chest congestion Essential hypertension Pernicious anemia B12 deficiency Hypovitaminosis D At high risk for breast cancer Anxiety Chronic GERD Family history of breast cancer Hypertension Surgical History S/P gastric sleeve procedure History of esophagogastroduodenoscopy (EGD) H/O colonoscopy History of breast lift History of breast implant Hx of abdominoplasty History of mammogram History of removal of cyst History of tubal ligation Family History Mother Diabetes High blood pressure Breast cancer Cervical cancer Father Cancer Alzheimer disease Parkinsons disease Maternal Grandmother Breast cancer Social History Household Members: Significant Other Housing: House Are you a primary child care attendant school to a significant other at home: No Do you presently have visiting nurse or other home services: No Alcohol intake: former Patient Tobacco Use Status: Never used Tobacco e-Cigarette/Vaping Use: Never Used Second Hand Smoke Exposure: No Substance Use Type: Marijuana service: No Current occupational status: employed Current occupational exposures/hazards: No Cognitive needs: No Hearing needs: No Vision needs: No Female Reproductive History Menstrual Age of Menarche: 14 Telehealth Telehealth Telehealth Platform: Telephone Location of provider rendering services: other Location of patient: address on file Patient Identification confirmed using: Name, : Yes Telehealth method: voice only Patient verbally consented to treatment: Yes Patient verbally consented to billing insurance company: Yes Patient informed of any privacy concerns related to visit: Yes Minutes spent on Phone/Video with Pt.: 12 Assessment & Plan Assessment & Plan (1) S/P laparoscopic sleeve gastrectomy: Code(s): Z98.84 - Bariatric surgery status Category: Surgical (2) Overweight: Code(s): E66.3 - Overweight Category: Medical Plan Discussed with pt the issues with her current eating plan is not consistent with what we recommend at this point postop. She should be getting 60g protein per day mostly from bars/shakes and one meal. Discussed risks of her current meal plan choices. She is happy with current weight and wants to maintain despite understanding she is still considered overweight. We discussed reflux triggers and how to avoid. RTC 3mo.
[2025-03-29 09:35] VITALS: BMI 26.4
== END 2025-03-29 09:51 | disposition home or self-care (01) ==
LOC: HO.HBS 09:46
PROVIDERS: PCP Internal Medicine; Visit Provider Physician Assistant Surgical
DX: E66.3 Overweight (principal); Z68.26 Body mass index [BMI] 26.0-26.9, adult; Z90.3 Acquired absence of stomach [part of]; Z98.84 Bariatric surgery status
CPT/HCPCS: 98967

== ENCOUNTER → 2025-06-03 10:45 | Outpatient (BNV) | payer OTHER, SELFPAY | PROVIDERS: PCP Internal Medicine; Visit Provider Internal Medicine | DX: Z12.31 Encounter for screening mammogram for malignant neoplasm of breast (principal) | CPT/HCPCS: 77063; 77067 ==

== ENCOUNTER 2025-06-03 10:47 | Outpatient (REF) | payer OTHER, SELFPAY ==
--- NOTE | ~2025-06-03 | MM_ITS ---
EXAMINATION: MM SCREENING DIGITAL BREAST TOMOSYNTHESIS, BILATERAL CLINICAL INFORMATION: Screening. Asymptomatic. COMPARISON: Mammography: Comparison is made with relevant avialable priors. TECHNIQUE: Digital mammography is performed in craniocaudal and mediolateral oblique views along with computer-aided detection (CAD). Digital breast tomosynthesis is performed in implant-displaced craniocaudal and implant-displaced mediolateral oblique views along with computer-aided detection (CAD). FINDINGS: The breasts are heterogeneously dense, which may obscure small masses. Bilateral retropectoral implants are stable appearing. Circumscribed oval mass upper outer left breast posterior depth likely intramammary lymph nodes stable dating back to 2021 and therefore benign. There are no significant masses, abnormal calcifications, or other abnormalities. MM/MM tomosynthesis screen imp BI IMPRESSION: There are no significant changes from prior study. ASSESSMENT: BI-RADS Category 2: Benign RECOMMENDATION: Routine annual mammography screening. 1 year F/U This patient's information was entered into a reminder system with a target due date for their next mammogram. Electronically signed by: Lu Arellano DO 06/03/2025 12:36 PM ROHIT
== END 2025-06-03 10:48 | disposition home or self-care (01) ==
LOC: HO.MAMMO 10:47
PROVIDERS: PCP Internal Medicine; Visit Provider Internal Medicine
DX: Z12.31 Encounter for screening mammogram for malignant neoplasm of breast (principal)
CPT/HCPCS: 77063; 77067

== ENCOUNTER 2025-06-17 13:33 | Outpatient (AMB) | payer OTHER, SELFPAY ==
--- NOTE | 2025-06-17 13:28 | A.OFFVIS_ITS ---
VS Expanded 06/17/25 13:32 Height 5 ft 1.5 in Weight 144 lb BMI 26.8 Intake Visit Reasons: Phone PO LSG 12/25/24 Allergies metronidazole (From Metrogel) Allergy (Intermediate, Verified 02/06/25 12:50) Rash Medication List - Last Reconciled 06/17/25 by ANGELA Garcia dicyclomine 20 mg PO TID PRN Held on 12/26/24. Instructions: Resume on 01/02/25. hydrochlorothiazide 25 mg PO QAM 90 days levonorgestrel (Mirena) 21 mcg intrauterine ONCE lorazepam 0.5 mg PO DAILY PRN 30 days losartan 100 mg PO DAILY Held on 12/26/24. Instructions: Resume on 12/27/24. Check your blood pressure every morning as soon as you wake up and send it to Dr. De La Vega. Do no take the blood pressure medication if the blood pressure is below 120/70. Wait every day to hear back from Dr. De La Vega before you take the medicat ion. HPI Comments Details: This is a 50 yo F who is s/p LSG 12/25/2024. Presents for 6mo post op visit. Weight stable since last OV 3mo ago. No complaints of nausea, emesis, abdominal pain, or constipation. I feel great She has not communicated with Dr Saldana recently. She feels very comfortable at this weight. She is a size 4 in pants. She is losing a lot of hair. Occasionally needs BP meds. Present meal plan includes: no longer using protein bars regularly 1 high protein waffle for breakfast today had fruit for lunch meal 3-4 forks chicken or fish and 3 of veg Drinking about 40 oz water restarted vitamins Exercise routine includes: joined [employer] gym, goes on 3x week, 200-300 calories each day. stationary bike at home 4 x per week, resistance 2-8, 100 calories Did the patient ever have any of these conditions and are they resolved or still being treated? GERD: rare, improved, sometimes takes Tums HEMAL:? never DM:? never? HTN:? on losartan and HCTZ Hyperlipidemia:? never? Post op complications:? none PFSH Medical History (Updated 03/29/25 @ 09:39 by ANGELA Garcia) Hypokalemia Abnormal EKG Encounter for well woman exam with routine gynecological exam Severe obesity with body mass index (BMI) of 36.0 to 36.9 with serious comorbidity Pre-op examination Hiatal hernia Obesity Stress incontinence BRCA negative Left sided sciatica Kidney stone Left flank pain Urinary frequency Physical exam Weight loss Physical exam Abnormal surgical wound Preop cardiovascular exam Preoperative clearance Encounter for pre-operative cardiovascular clearance Dysuria Right tennis elbow History of uterine fibroid Chest congestion Essential hypertension Pernicious anemia B12 deficiency Hypovitaminosis D At high risk for breast cancer Anxiety Chronic GERD Family history of breast cancer Hypertension Surgical History S/P gastric sleeve procedure History of esophagogastroduodenoscopy (EGD) H/O colonoscopy History of breast lift History of breast implant Hx of abdominoplasty History of mammogram History of removal of cyst History of tubal ligation Family History Mother Diabetes High blood pressure Breast cancer Cervical cancer Father Cancer Alzheimer disease Parkinsons disease Maternal Grandmother Breast cancer Social History Household Members: Significant Other Housing: House Are you a primary home health care respiratory therapist to a significant other at home: No Do you presently have visiting nurse or other home services: No Alcohol intake: former Patient Tobacco Use Status: Never used Tobacco e-Cigarette/Vaping Use: Never Used Second Hand Smoke Exposure: No Substance Use Type: Marijuana service: No Current occupational status: employed Current occupational exposures/hazards: No Cognitive needs: No Hearing needs: No Vision needs: No Female Reproductive History Menstrual Age of Menarche: 14 Telehealth Telehealth Telehealth Platform: Telephone Location of provider rendering services: practice address Location of patient: address on file Patient Identification confirmed using: Name, : Yes Telehealth method: voice only Patient verbally consented to treatment: Yes Patient verbally consented to billing insurance company: Yes Patient informed of any privacy concerns related to visit: Yes Minutes spent on Phone/Video with Pt.: 11 Assessment & Plan Assessment & Plan (1) S/P laparoscopic sleeve gastrectomy: Code(s): Z98.84 - Bariatric surgery status Category: Surgical (2) Overweight: Code(s): E66.3 - Overweight Category: Medical Plan We discussed that she is not getting enough protein. She should get about 60g per day and she is not close to this. Needs a high protein item at lunch. Bar or shake would be ideal but can use yogurt, or CC or small meal. Discussed reflux triggers. Continue to monitor BP and dose meds according to parameters. Labs ordered. RTC 3mo TV. Orders: Orders Hemoglobin A1c Today Z98.84 - Bariatric surgery status Complete Blood Count Auto Diff Today Z98.84 - Bariatric surgery status Comprehensive Met. Panel Today Z98.84 - Bariatric surgery status Vitamin B1 Today Z98.84 - Bariatric surgery status Vitamin D 25-OH Total Today Z98.84 - Bariatric surgery status Zinc Today Z98.84 - Bariatric surgery status IRON PROFILE Today Z98.84 - Bariatric surgery status Insulin Today Z98.84 - Bariatric surgery status Lipid Panel Today Z98.84 - Bariatric surgery status Vitamin B12 and Folate Today Z98.84 - Bariatric surgery status C Reactive Protein Today Z98.84 - Bariatric surgery status TSH reflex Free T4 Today Z98.84 - Bariatric surgery status Ferritin Today Z98.84 - Bariatric surgery status Vitamin A Today Z98.84 - Bariatric surgery status
[2025-06-17 13:32] VITALS: BMI 26.8
== END 2025-06-17 13:44 | disposition home or self-care (01) ==
LOC: HO.HBS 13:33
PROVIDERS: PCP Internal Medicine; Visit Provider Physician Assistant Surgical
DX: E66.3 Overweight (principal); Z68.26 Body mass index [BMI] 26.0-26.9, adult; Z90.3 Acquired absence of stomach [part of]; Z98.84 Bariatric surgery status
CPT/HCPCS: 98967